=== PATIENT | female | born 1950 | race Caucasian/White ===

== ENCOUNTER 2017-10-16 00:56 | Inpatient (IN) | payer OTHER, BC ==
--- NOTE | 2017-10-16 01:13 | PDOC ---
History of Present Illness - General Chief Complaint: Pain, Acute Stated Complaint: POST OP BREAST SURGERY/PAIN, NUMBNESS TO LEFT ARM Time Seen by Provider: 10/16/17 01:07 - History of Present Illness Initial Comments: 10/16/17 01:41 This is a 67-year-old female with a past medical history of atrial fibrillation (Coumadin), Mechanical MV, coronary artery disease (S/P CABG), breast CA (left mastectomy 10/31/2014, left mastectomy revision, 11/21/2014) patient has completed 6 cycles of chemotherapy (cytoxan and taxotere) and is currently on armidex. Patient is S/P Left breast capsulectomy with removal of implant and hematoma, Dr. Engle/Dr. Cano, 10/11/2017. Patient was discharged yesterday on Lovenox (Coumadin not restarted). Today, she noted an increase in pain over the operative site and left arm numbness starting at approximately 3 PM. GLORIA drainage has been unchanged at 30 mL emptied every 3 hours and drainage appearance has been consistent. Her most recent oxycodone was taken at 10 PM; patient states that this "did nothing "to help her pain. She denies shortness of breath. Controlled Area Checker is Dr Carver([facility]) Past History - Past Medical History Allergies/Adverse Reactions: Allergies Allergy/AdvReac Type Severity Reaction Status Date / Time Penicillins Allergy Rash Verified 10/16/17 00:58 Home Medications: Ambulatory Orders Digoxin [Lanoxin -] 0.125 mg PO DAILY 10/29/14 Enoxaparin Sodium [Lovenox] 80 mg SQ BID 10/29/14 Simvastatin 40 mg PO HS 10/29/14 Anastrozole [Arimidex] 1 mg PO DAILY 10/07/17 Metoprolol Succinate 200 mg PO DAILY 10/07/17 Cefadroxil 1 gm PO DAILY #7 tablet 10/14/17 Oxycodone HCl/Acetaminophen [Percocet 5-325 mg Tablet] 1 combo PO Q4H PRN #42 tablet MDD 6 10/14/17 Anemia: No Asthma: No Cancer: Yes (Breast Left) Cardiac Disorders: Yes (Atrial Fib,MVR) CVA: No COPD: No CHF: No Dementia: No Diabetes: No GI Disorders: No Disorders: No HTN: No Hypercholesterolemia: Yes Liver Disease: No Seizures: No Thyroid Disease: No - Surgical History Abdominal Surgery: No Appendectomy: No Cardiac Surgery: Yes (Mitral Valve Replacement 09/2207) Cholecystectomy: No Lung Surgery: No Neurologic Surgery: No Orthopedic Surgery: No - Suicide/Smoking/Psychosocial Hx Smoking History: Former smoker Have you smoked in the past 12 months: No Number of Cigarettes Smoked Daily: 0 If you are a former smoker, when did you quit?: 15 y ago Hx Alcohol Use: No Drug/Substance Use Hx: No Substance Use Type: None Hx Substance Use Treatment: No Review of Systems - Review of Systems Able to Perform ROS?: Yes Comments:: 12 point review of systems is negative except for what is noted in the history of present illness *Physical Exam - Physical Exam Comments: GENERAL: Adult female, alert and oriented 3, anxious and in mild distress secondary to left-sided chest pain/left arm numbness HEAD: Normal with no signs of trauma. EYES: PERRLA, EOMI, sclera anicteric, conjunctiva clear. ENT: Ears normal, nares patent, oropharynx clear without exudates. Moist mucous membranes. NECK: Normal range of motion, supple without lymphadenopathy, JVD, or masses. LUNGS: Breath sounds equal, clear to auscultation bilaterally. No wheezes, and no crackles. CHEST WALL: Left-sided operative site : suture line intact without disruption, erythema or discharge Firm , mildly tender, nonfluctuant , ecchymotic 10 cm by 10 cm collection proximal to suture line HEART:Regular rate and rhythm, normal S1 and S2 without murmur, rub or gallop. ABDOMEN:.normal bowel sounds No guarding,tenderness or rebound.No masses No distention. EXTREMITIES: Normal range of motion, no edema. No clubbing or cyanosis. No erythema, or tenderness. NEUROLOGICAL: Cranial nerves II through XII grossly intact. Normal speech. No focal neurological deficits. MUSCULOSKELETAL: Back non-tender to palpation, no CVA tenderness SKIN: Warm, Dry, normal turgor, no rashes or lesions noted. 12-lead electrocardiogram performed and interpreted by me: Atrial fibrillation 111 beats per minute; no significant change from previous EKG dated 10/31/14 ED Treatment Course - LABORATORY CBC & Chemistry Diagram: 10/16/17 01:50 10/16/17 01:50 Medical Decision Making - Medical Decision Making 10/16/17 01:[address] Cano: Because of patient's increase in chest pain ( in light of her cardiac history) and possible change in size of postoperative hematoma, patient should be admitted to fully rule out myocardial ischemia as being etiology of her chest pain. Also, possible increase in postoperative hematoma warrants full evaluation and monitoring a CBC/INR. Patient could possibly need revision if significant reaccumulation of hematoma has occurred. Patient should be through [facility].Dr Cano will see patient in the AM 10/16/17 03:02 Portable chest x-ray shows diffuse, faint opacity of the left sided chest consistent with overlying hematoma; no effusion/infiltrate present. Right lung is clear. 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 Patient is cleared to stay at [facility]. He will see patient in the AM *DC/Admit/Observation/Transfer Diagnosis at time of Disposition: Postoperative hematoma of subcutaneous tissue Qualifiers: Procedure type: non-dermatologic Qualified Code(s): L76.32 - Postprocedural hematoma of skin and subcutaneous tissue following other procedure - Discharge Dispostion Condition at time of disposition: Stable Decision to Admit order: Yes - Referrals - Patient Instructions - Post Discharge Activity
[2017-10-16] MEDS ORDERED: morphine CARPU-JECT 2 MG/1 ML DISP.SYRIN IVPUSH ONE ×2 (02:17→03:12)
[2017-10-16] MEDS ORDERED: morphine SULFATE 4 MG/ML VIAL ONE (02:18)
[2017-10-16] MEDS ORDERED: CEFAZOLIN 1 GM in DEXTROSE 5%-WATER - 50 ML IVPB ONE (02:26)
[2017-10-16] MEDS ORDERED: ceFAZolin SODIUM 1 GM VIAL ONE ×2 (02:26→12:04)
[2017-10-16 02:29] LABS: BASO % 0.5 % (0-2.0); EOS % 0.9 % (0-4.5); HEMATOCRIT 32.1 % (32.4-45.2); HEMOGLOBIN 11.1 GM/dL (10.7-15.3); LYMPH % 5.7 % (8-40); MCH 29.9 pg (25.7-33.7); MCHC 34.6 g/dl (32.0-36.0); MEAN CELL VOLUME 86.6 fl (80-96); MEAN PLT VOLUME 9.5 fl (7.5-11.1); MONO % 7.4 % (3.8-10.2); NEUT % 85.5 % (42.8-82.8); PLATELET COUNT 197 K/MM3 (134-434); RDW 14.1 % (11.6-15.6); WHITE BLOOD COUNT 12.9 K/mm3 (4.0-10.0)
[2017-10-16] MEDS ORDERED: DEXTROSE 5%-0.45% SALINE 1,000 ML IV SCH ×2 (02:30→09:15)
[2017-10-16 02:47] LABS: INR 1.12 (0.83-1.09); PROTHROMBIN TIME (PATIENT) 12.6 SEC (9.7-13.0)
[2017-10-16 03:00] LABS: ALBUMIN 3.3 g/dl (3.4-5.0); ALK PHOS 101 U/L (45-117); ANION GAP 8 MMOL/L (8-16); BILIRUBIN,TOTAL 2.2 mg/dL (0.2-1.0); BLOOD UREA NITROGEN 23 mg/dL (7-18); CALCIUM 8.6 mg/dL (8.5-10.1); CHLORIDE 101 mmol/L (98-107); CO2 29 mmol/L (21-32); GLUCOSE,RANDOM 145 mg/dL (74-106); SGOT/AST 30 U/L (15-37); SGPT/ALT 45 U/L (12-78); SODIUM 138 mmol/L (136-145); TOT PROT 5.9 g/dl (6.4-8.2)
[2017-10-16] MEDS ORDERED: MORPHINE SULFATE 2 MG/ML VIAL IVPUSH PRN (06:39)
[2017-10-16] MEDS ORDERED: ONDANSETRON 4 MG/2 ML VIAL IVPUSH PRN ×3 (06:41→15:23)
[2017-10-16] MEDS ORDERED: HYDROmorphone HCL CARPU-JECT 2 MG/1 ML DISP.SYRIN ONE (07:56)
[2017-10-16] MEDS ORDERED: ALBUTEROL SO4 0.083% IH SOL 2.5 MG/3 ML VIAL.NEB. NEB ONE (07:57)
--- NOTE | 2017-10-16 08:19 | HP ---
CHIEF COMPLAINT: Left breast pain Surgeon: Dr. Cano HISTORY OF PRESENT ILLNESS: This is a 67 year-old female with a PMH significant for atrial fibrillation, mechanical MV, CAD s/p CABG, breast CA s/p left mastectomy and revision (2014) s /p six cycles of chemotherapy (cytoxan and taxotere), currently on armidex. Now s/p left breast capsulectomy with removal of implant and hematoma on 10/11/17. Patient was discharged 10/13/17 on full dose Lovenox. On 10/14 patient had increased pain and left arm numbness and came to the ED. At the time of this admission, the GLORIA drain is putting out ~200ccs per hour sanguinous fluid. Patient being transferred to [facility] for emergent surgery with Dr. Cano. Recent Travel: PAST MEDICAL HISTORY: As above PAST SURGICAL HISTORY: As above Social History: Smoking:no Alcohol: no Drugs: no Family History: Allergies Penicillins Allergy (Verified 10/16/17 00:58) Rash HOME MEDICATIONS: Home Medications Medication Instructions Recorded Digoxin [Lanoxin -] 0.125 mg PO DAILY 10/29/14 Enoxaparin Sodium [Lovenox] 80 mg SQ BID 10/29/14 Simvastatin 40 mg PO HS 10/29/14 Anastrozole [Arimidex] 1 mg PO DAILY 10/07/17 Metoprolol Succinate 200 mg PO DAILY 10/07/17 Cefadroxil 1 gm PO DAILY #7 tablet 10/14/17 Oxycodone HCl/Acetaminophen 1 combo PO Q4H PRN #42 tablet MDD 6 10/14/17 [Percocet 5-325 mg Tablet] REVIEW OF SYSTEMS CONSTITUTIONAL: Absent: fever, chills, diaphoresis, generalized weakness, malaise, loss of appetite, weight change HEENT: Absent: rhinorrhea, nasal congestion, throat pain, throat swelling, difficulty swallowing, mouth swelling, ear pain, eye pain, visual changes CARDIOVASCULAR: Absent: chest pain, syncope, palpitations, irregular heart rate, lightheadedness , peripheral edema RESPIRATORY: Absent: cough, shortness of breath, dyspnea with exertion, orthopnea, wheezing, stridor, hemoptysis GASTROINTESTINAL: Absent: abdominal pain, abdominal distension, nausea, vomiting, diarrhea, constipation, melena, hematochezia GENITOURINARY: Absent: dysuria, frequency, urgency, hesitancy, hematuria, flank pain, genital pain MUSCULOSKELETAL: +left breast pain Absent: myalgia, arthralgia, joint swelling, back pain, neck pain SKIN: Absent: rash, itching, pallor HEMATOLOGIC/IMMUNOLOGIC: Absent: easy bleeding, easy bruising, lymphadenopathy, frequent infections ENDOCRINE: Absent: unexplained weight gain, unexplained weight loss, heat intolerance, cold intolerance NEUROLOGIC: Absent: headache, focal weakness or paresthesias, dizziness, unsteady gait, seizure, mental status changes, bladder or bowel incontinence PSYCHIATRIC: Absent: anxiety, depression, suicidal or homicidal ideation, hallucinations. PHYSICAL EXAMINATION Vital Signs - 24 hr 10/16/17 10/16/17 10/16/17 01:02 02:01 05:05 Temperature 97.4 F L 98.4 F Pulse Rate 116 H 98 H Pulse Rate [ 72 Left] Respiratory 20 16 18 Rate Blood Pressure 129/78 127/66 Blood Pressure 148/87 [Right] O2 Sat by Pulse 98 96 Oximetry (%) 10/16/17 05:09 Temperature 98.4 F Pulse Rate 98 H Pulse Rate [ Left] Respiratory 18 Rate Blood Pressure 127/66 Blood Pressure [Right] O2 Sat by Pulse 99 Oximetry (%) GENERAL: Awake, alert, and fully oriented, in moderate distress secondary to pain. Jaundiced. Ill-appearing. HEAD: Normal with no signs of trauma. EYES: Pupils equal, round and reactive to light, extraocular movements intact, sclera anicteric, conjunctiva clear. No lid lag. LUNGS: Breath sounds equal, clear to auscultation bilaterally. No wheezes, and no crackles. No accessory muscle use. HEART: Regular rate and rhythm, S1 and S2 LEFT BREAST: 12 x 12 cm collection, tense, ecchymosis; surgical incision oozing blood; GLORIA drain with sanguinous drainage ABDOMEN: Soft, nontender, not distended UPPER EXTREMITIES: 2+ pulses, warm, well-perfused. No cyanosis. No clubbing. No peripheral edema. LOWER EXTREMITIES: 2+ pulses, warm, well-perfused. No calf tenderness. No peripheral edema. NEUROLOGICAL: Cranial nerves II-XII intact. Normal speech. Laboratory Results - last 24 hr 10/16/17 10/16/17 10/16/17 01:50 01:50 01:50 WBC 12.9 H RBC 3.70 Hgb 11.1 Hct 32.1 L MCV 86.6 MCH 29.9 MCHC 34.6 RDW 14.1 Plt Count 197 MPV 9.5 Absolute Neuts (auto) 11.1 H Neutrophils % 85.5 H Lymphocytes % 5.7 L D Monocytes % 7.4 Eosinophils % 0.9 Basophils % 0.5 Nucleated RBC % 0 PT with INR 12.60 INR 1.12 H Sodium 138 Potassium 4.0 Chloride 101 Carbon Dioxide 29 Anion Gap 8 BUN 23 H Creatinine 1.0 Creat Clearance w eGFR 55.47 Random Glucose 145 H Calcium 8.6 Total Bilirubin 2.2 H AST 30 ALT 45 Alkaline Phosphatase 101 Creatine Kinase 75 Troponin I Total Protein 5.9 L Albumin 3.3 L Triglycerides Cholesterol Total LDL Cholesterol HDL Cholesterol Blood Type Antibody Screen Crossmatch 10/16/17 10/16/17 01:50 02:30 WBC RBC Hgb Hct MCV MCH MCHC RDW Plt Count MPV Absolute Neuts (auto) Neutrophils % Lymphocytes % Monocytes % Eosinophils % Basophils % Nucleated RBC % PT with INR INR Sodium Potassium Chloride Carbon Dioxide Anion Gap BUN Creatinine Creat Clearance w eGFR Random Glucose Calcium Total Bilirubin AST ALT Alkaline Phosphatase Creatine Kinase Troponin I 0.34 H Total Protein Albumin Triglycerides 141 Cholesterol 137 Total LDL Cholesterol 80 HDL Cholesterol 41 Blood Type A POSITIVE Antibody Screen Negative Crossmatch See Detail ASSESSMENT/PLAN 67 year-old female with a PMH significant for atrial fibrillation, mechanical MV , CAD s/p CABG, breast CA s/p left mastectomy and revision (2014), s/p left breast capsulectomy with removal of implant and hematoma on 10/11/17. Admitted for active bleeding. Post-surgical bleeding --Hgb 11.1 but GLORIA drain putting out 200cc's per hour --BP is stable --bolus fluids running --type and screen done, 2U ready in ICU, will be transfused immediately on arrival --to OR Breast cancer --continue arimidex Atrial fibrillation --rate to 110s, continue metoprolol, digoxin --usually on coumadin; was discharged on 10/13 on full-dose lovenox; all anticoagulation on hold for now due to bleeding Mechanical mitral valve --coumadin is first line a/c but on hold --when bleeding issues resolved, start heparin drip CAD s/p CABG --continue metoprolol, simvastatin Visit type - Emergency Visit Emergency Visit: Yes ED Registration Date: 10/16/17 Care time: The patient presented to the Emergency Department on the above date and was hospitalized for further evaluation of their emergent condition. - New Patient This patient is new to me today: Yes Date on this admission: 10/17/17 - Critical Care Critical Care patient: Yes Total Critical Care Time (in minutes): 60 Critical Care Statement: The care of this patient involved high complexity decision making to prevent further life threatening deterioration of the patient 's condition and/or to evaluate & treat vital organ system(s) failure or risk of failure. Hospitalist Screening - Colonoscopy Questionnaire Colonoscopy Questionnaire: Colonoscopy Questionnaire - Patient: 50 - 75 years old and never had a screening colonoscopy: Unknown History of colon or rectal polyps, or CA: Yes History of IBD, Crohn's disease or UC: No History of abdominal radiation therapy as a child: No - Relative: 1 with colon or rectal CA, or polyps at age 60 or younger: Unknown Colon or rectal CA diagnosed at age 45 or younger: Unknown Multiple relatives with colon or rectal CA: Unknown - Outcome: Screening Result: Positive Screen
[2017-10-16] MEDS ORDERED: HYDROmorphone HCL CARPU-JECT 2 MG/1 ML DISP.SYRIN IVPUSH ONE (08:25)
[2017-10-16] MEDS ORDERED: PROMETHAZINE HCL 25 MG/1 ML VIAL IVPB STA (09:18)
[2017-10-16] MEDS ORDERED: DIGOXIN 0.125 MG TABLET (FP) PO SCH (10:00)
[2017-10-16] MEDS ORDERED: PNEUMOC 13-VAL CONJ-DIP CRM/PF 0.5 ML DISP.SYRIN IM ONE (10:00)
[2017-10-16] MEDS ORDERED: ANASTROZOLE 1 MG TABLET PO SCH (10:00)
[2017-10-16 10:41] LABS: HEMATOCRIT 27.1 % (32.4-45.2); HEMOGLOBIN 9.3 GM/dL (10.7-15.3); MCH 29.9 pg (25.7-33.7); MCHC 34.2 g/dl (32.0-36.0); MEAN CELL VOLUME 87.4 fl (80-96); MEAN PLT VOLUME 9.3 fl (7.5-11.1); PLATELET COUNT 232 K/MM3 (134-434); RDW 14.3 % (11.6-15.6); WHITE BLOOD COUNT 14.3 K/mm3 (4.0-10.0)
--- NOTE | 2017-10-16 10:50 | PN ---
Progress Note (short form) - Note Progress Note: Patient seen at 630 this morning. HD stable with shira output 30/hr. Her last dose of lovenox was within 12 hours. Exam is hematoma to the surgical site with skin viable and incisions intact. No evidence of infection. HCT 32 Plan is for immediate transfusion of 2u PRBC and hold lovenox. This was ordered at 650. Plan for OR later this morning after lovenox has worn off completely. We will transfer to ICU with cardiology consult for post op management regarding the length of stopping anticoagulation. I have discussed this with the patient who understands and agrees to proceed.
--- NOTE | 2017-10-16 10:50 | CONSULT ---
Consultation: REQUESTING PROVIDER: CONSULT REQUEST: We have been asked to medically evaluate this patient. HISTORY OF PRESENT ILLNESS: Pt. has been having worsening left breast pain (7/10 intensity), dizziness and progressive generalized weakness since (10/13/17). Pt. was last treated for left breast mastectomy in 2014. Pt. had revision done later that year after the first hematoma was discovered. Pt. was BIBA from [place] for emergent surgery. Pt. has PMHx. of atrial fibrillation (Coumadin), Mechanical MV, CAD (s/ p CABG), breast CA (left mastectomy 10/31/2014, left mastectomy revision, 2014) patient has completed 6 cycles of chemotherapy (cytoxan and taxotere) and is currently on armidex. Pt. has GLORIA drain that is draining sanginous fluid at 30 ml/hour consistently since 10/11/17. Pt. says that her pain medication oxicodone is not effective at controlling left breast pain. Pt. endorses dizziness since . Pt. denies numbness or tingling in the extremities, denies any changes in passing urine or stool. Pt. denies nausea or vomiting. REVIEW OF SYSTEMS: CONSTITUTIONAL: generalized weakness Absent: fever, chills, diaphoresis, malaise, loss of appetite, weight change HEENT: Absent: rhinorrhea, nasal congestion, throat pain, throat swelling, difficulty swallowing, mouth swelling, ear pain, eye pain, visual changes CARDIOVASCULAR: chest pain Absent: , syncope, palpitations, irregular heart rate, lightheadedness, peripheral edema RESPIRATORY: Absent: cough, shortness of breath, dyspnea with exertion, orthopnea, wheezing, stridor, hemoptysis GASTROINTESTINAL: Absent: abdominal pain, abdominal distension, nausea, vomiting, diarrhea, constipation, melena, hematochezia GENITOURINARY: Absent: dysuria, frequency, urgency, hesitancy, hematuria, flank pain, genital pain MUSCULOSKELETAL: Absent: myalgia, arthralgia, joint swelling, back pain, neck pain SKIN: Absent: rash, itching, pallor HEMATOLOGIC/IMMUNOLOGIC: easy bleeding, easy bruising, Absent: lymphadenopathy, frequent infections ENDOCRINE: Absent: unexplained weight gain, unexplained weight loss, heat intolerance, cold intolerance NEUROLOGIC: dizziness Absent: headache, focal weakness or paresthesias, unsteady gait, seizure, mental status changes, bladder or bowel incontinence PSYCHIATRIC: Absent: anxiety, depression, suicidal or homicidal ideation, hallucinations. PHYSICAL EXAMINATION Vital Signs - 24 hr 10/16/17 10/16/17 10/16/17 01:02 02:01 05:05 Temperature 97.4 F L 98.4 F Pulse Rate 116 H 98 H Pulse Rate [ 72 Left] Respiratory 20 16 18 Rate Blood Pressure 129/78 127/66 Blood Pressure 148/87 [Right] O2 Sat by Pulse 98 96 Oximetry (%) 10/16/17 10/16/17 10/16/17 05:09 08:25 09:10 Temperature 98.4 F Pulse Rate 98 H 124 H 132 H Pulse Rate [ Left] Respiratory 18 16 16 Rate Blood Pressure 127/66 148/81 138/80 Blood Pressure [Right] O2 Sat by Pulse 99 Oximetry (%) 10/16/17 10/16/17 09:30 09:40 Temperature Pulse Rate 128 H 140 H Pulse Rate [ Left] Respiratory 16 16 Rate Blood Pressure 141/78 138/84 Blood Pressure [Right] O2 Sat by Pulse Oximetry (%) GENERAL: Awake, alert, and fully oriented, in mild distress. HEAD: Normal with no signs of trauma. EYES: Pupils equal, round and reactive to light, extraocular movements intact, pale sclera, conjunctiva clear. EARS, NOSE, THROAT: Ears normal, nares patent, oropharynx clear without exudates. Dry mucous membranes. LUNGS: Breath sounds equal, clear to auscultation bilaterally. No wheezes, and no crackles. No accessory muscle use. HEART: Regular rate and rhythm, normal S1 and S2 with murmur ABDOMEN: Soft, nontender, not distended, normoactive bowel sounds, no guarding UPPER EXTREMITIES: 1+ pulses, warm, well-perfused. No cyanosis. No clubbing. No peripheral edema. LOWER EXTREMITIES: warm, well-perfused. No calf tenderness. No peripheral edema. SKIN: Warm, dry, normal turgor Laboratory Results - last 24 hr 10/16/17 10/16/17 10/16/17 01:50 01:50 01:50 WBC 12.9 H RBC 3.70 Hgb 11.1 Hct 32.1 L MCV 86.6 MCH 29.9 MCHC 34.6 RDW 14.1 Plt Count 197 MPV 9.5 Absolute Neuts (auto) 11.1 H Neutrophils % 85.5 H Lymphocytes % 5.7 L D Monocytes % 7.4 Eosinophils % 0.9 Basophils % 0.5 Nucleated RBC % 0 PT with INR 12.60 INR 1.12 H Sodium 138 Potassium 4.0 Chloride 101 Carbon Dioxide 29 Anion Gap 8 BUN 23 H Creatinine 1.0 Creat Clearance w eGFR 55.47 Random Glucose 145 H Calcium 8.6 Total Bilirubin 2.2 H AST 30 ALT 45 Alkaline Phosphatase 101 Creatine Kinase 75 Troponin I Total Protein 5.9 L Albumin 3.3 L Triglycerides Cholesterol Total LDL Cholesterol HDL Cholesterol Blood Type Antibody Screen Crossmatch 10/16/17 10/16/17 10/16/17 01:50 02:30 09:30 WBC RBC Hgb Hct MCV MCH MCHC RDW Plt Count MPV Absolute Neuts (auto) Neutrophils % Lymphocytes % Monocytes % Eosinophils % Basophils % Nucleated RBC % PT with INR INR Sodium Potassium Chloride Carbon Dioxide Anion Gap BUN Creatinine Creat Clearance w eGFR Random Glucose Calcium Total Bilirubin AST ALT Alkaline Phosphatase Creatine Kinase Troponin I 0.34 H 0.40 H Total Protein Albumin Triglycerides 141 Cholesterol 137 Total LDL Cholesterol 80 HDL Cholesterol 41 Blood Type A POSITIVE Antibody Screen Negative Crossmatch See Detail Active Medications Current Medications Anastrozole (Arimidex -) 1 mg PO DAILY COUNTS INCLUDE 234 BEDS AT THE [facility] Atorvastatin Calcium (Lipitor -) 20 mg PO HS COUNTS INCLUDE 234 BEDS AT THE [facility] Digoxin (Lanoxin -) 0.125 mg PO DAILY COUNTS INCLUDE 234 BEDS AT THE [facility] Dextrose/Sodium Chloride (D5-1/2ns -) 1,000 mls @ 100 mls/hr IV ASDIR LAMAR Last Admin: 10/16/17 09:15 Dose: 100 mls/hr Metoprolol Succinate (Toprol Xl -) 200 mg PO DAILY COUNTS INCLUDE 234 BEDS AT THE [facility] Morphine Sulfate (Morphine Sulfate) 2 mg IVPUSH Q6H PRN PRN Reason: PAIN LEVEL 7 - 10 Last Admin: 10/16/17 07:25 Dose: 2 mg Ondansetron HCl (Zofran Injection) 4 mg IVPUSH Q6H PRN PRN Reason: NAUSEA AND/OR VOMITING Last Admin: 10/16/17 07:25 Dose: 4 mg ASSESSMENT/PLAN: #Cardiovascular -Hypovolemia transfuse 2 units pRBCs, prepare to transfuse more post-op started D5-1/2NS @100ml/hr Pt. is going to the OR for evacuation of hematoma, will f/u with post op CBC Cardiology consulted for management of Pt. off AC d/t bleeding as Pt. is at increased risk for stroke d/t mechanical mitral valve -Afib c/w Metoprolol hold Lovenox until after procedure and cardiology consulted for when to restart echocardiogram -HLD c/w Lipitor -CHF c/w Digoxin monitor BMP #Gastroenterology -Nausea and vomiting c/w Ondanseetron as needed #Oncology -Left Breast CA c/w Armidex #F/E/N D5-1/2 NS @ 100ml/ hr establish 2 Large IV access sites #DVT PPx. -given Lovenox in the AM, will hold AC for at least 48 hours post-op. -consider starting Heparin drip on post-op as it is reversible. Dispo: -ICU monitoring We will continue to follow the patient. Thank you for this consultative opportunity. Visit type - Emergency Visit Emergency Visit: Yes ED Registration Date: 10/16/17 Care time: The patient presented to the Emergency Department on the above date and was hospitalized for further evaluation of their emergent condition. - New Patient This patient is new to me today: Yes Date on this admission: 10/16/17 - Critical Care Critical Care patient: No
--- NOTE | 2017-10-16 11:07 | PN ---
Teaching Attending Note Name of Resident: Garett Woods ATTENDING PHYSICIAN STATEMENT I saw and evaluated the patient. I reviewed the resident's note and discussed the case with the resident. I agree with the resident's findings and plan as documented. SUBJECTIVE: Pt seen and examined in the ICU. Briefly, 67yo female with h/o CAD s/p CABG, h/ o left breast ca s/p mastectomy, mechanical MVR, atrial fibrillation on anticoagulation who just had a left breast capsulectomy, removal of breast prosthesis who presented with increased bloody drainage from her drain. Noted to have >400mL bloody drainage since presentation in ER. Pt diaphoretic, short of breath. OBJECTIVE: Vital Signs Period Temp Pulse Resp BP Sys/Bergeron Pulse Ox Last 24 Hr 97.4 F-98.4 F 72-140 16-20 127-148/66-87 96-99 Intake & Output 10/13/17 10/14/17 10/15/17 10/16/17 23:59 23:59 23:59 23:59 Intake Total 84 Output Total 470 Balance -386 Weight 78.471 kg Gen: anxious, mildly tachypneic Heart: tachycardic, irregular Lung: decreased breath sounds at the bases Abd: soft, nontender Ext: no edema Drain with blood CBC, BMP 10/16/17 10:35 10/16/17 01:50 Active Medications Anastrozole (Arimidex -) 1 mg PO DAILY [facility] Atorvastatin Calcium (Lipitor -) 20 mg PO HS [facility] Digoxin (Lanoxin -) 0.125 mg PO DAILY [facility] Dextrose/Sodium Chloride (D5-1/2ns -) 1,000 mls @ 100 mls/hr IV ASDIR LAMAR Last Admin: 10/16/17 09:15 Dose: 100 mls/hr Metoprolol Succinate (Toprol Xl -) 200 mg PO DAILY [facility] Morphine Sulfate (Morphine Sulfate) 2 mg IVPUSH Q6H PRN PRN Reason: PAIN LEVEL 7 - 10 Last Admin: 10/16/17 07:25 Dose: 2 mg Ondansetron HCl (Zofran Injection) 4 mg IVPUSH Q6H PRN PRN Reason: NAUSEA AND/OR VOMITING Last Admin: 10/16/17 07:25 Dose: 4 mg ASSESSMENT AND PLAN: L Breast Ca s/p recent capsulectomy/implant removal Acute Blood Loss Anemia CAD s/p CABG +Troponins likely Demand Ischemia h/o mechanical MVR Atrial Fibrillation with RVR - transfuse PRBC - monitor H/H - pt to OR for exploration - rate control - echocardiogram - pain control - holding anticoagulation for active bleeding - IVF resuscitation - ensure large bore peripheral access - ICU monitoring critical care time spent in reviewing chart, evaluating patient and formulating plan 35 min
[2017-10-16] MEDS ORDERED: SUCCINYLCHOLINE CHLORIDE 200 MG/10 ML VIAL ONE (11:49)
[2017-10-16] MEDS ORDERED: PROPOFOL 20 ML ONE (11:49)
[2017-10-16] MEDS ORDERED: fentaNYL CITRATE 250 MCG/5 ML VIAL ONE ×2 (11:49→13:44)
[2017-10-16] MEDS ORDERED: CLINDAMYCIN 600 MG PREMIX BAG IVPB ONE (12:03)
[2017-10-16] MEDS ORDERED: ROCURONIUM BROMIDE 50 MG/5 ML VIAL ONE (12:04)
[2017-10-16 12:25] LABS: CHOLESTEROL 114 mg/dL (50-200); HDL CHOLESTEROL 37 mg/dL (40-60); LDL CHOLESTEROL (ONLY DFH) 44 mg/dl; TRIGLYCERIDES 167 mg/dL (35-160)
[2017-10-16] MEDS ORDERED: NEOSTIGMINE METHYLSULFATE 0.5 MG/ML - 10 ML MDV ONE (14:13)
[2017-10-16] MEDS ORDERED: GLYCOPYRROLATE 0.2 MG/1 ML VIAL ONE ×2 (14:13)
[2017-10-16] MEDS ORDERED: LABETALOL HCL 5 MG/1 ML (100MG/20 ML VIAL) ONE (14:22)
[2017-10-16] MEDS ORDERED: PROMETHAZINE HCL 25 MG/1 ML VIAL IVPUSH PRN ×2 (14:47→15:23)
[2017-10-16] MEDS ORDERED: oxyCODONE HCL 5 MG TABLET PO PRN ×2 (14:47→15:23)
[2017-10-16] MEDS ORDERED: LACTATED RINGERS SOLUTION 1,000 ML IV SCH ×2 (15:00→15:23)
--- NOTE | 2017-10-16 15:03 | OP ---
Operative Note - Note: Operative Date: 10/16/17 Pre-Operative Diagnosis: hematoma on left chest wound Operation: evacuation of hematoma and hemostasis of left breast wound Findings: bleeding from raw muscle surfaces. over-sewen ad cauterized Surgeon: Carlos A Cano Anesthesia: General Estimated Blood Loss (mls): 400 Operative Report Dictated: Yes
--- NOTE | 2017-10-16 15:05 | PN ---
Progress Note (short form) - Note Progress Note: good hemostasis acheived intra-operatively. Transfused additional unit PRBC in OR. Lu catheter placed for UOP monitoring. Plan is to hold anticoagulation until morning at least. Cardiology consult pending for valve management. Obs in ICU.
[2017-10-16 16:14] LABS: HEMATOCRIT 33.4 % (32.4-45.2); HEMOGLOBIN 11.5 GM/dL (10.7-15.3); MCH 29.9 pg (25.7-33.7); MCHC 34.5 g/dl (32.0-36.0); MEAN CELL VOLUME 86.6 fl (80-96); MEAN PLT VOLUME 9.1 fl (7.5-11.1); PLATELET COUNT 150 K/MM3 (134-434); RBC 3.86 M/mm3 (3.60-5.2); RDW 14.7 % (11.6-15.6); WHITE BLOOD COUNT 14.1 K/mm3 (4.0-10.0)
--- NOTE | 2017-10-16 16:19 | OP ---
DATE OF OPERATION: 10/16/2017 PROCEDURE: Left breast re-exploration of bleeding wound with cauterization of bleeding chest blood vessels, suture ligation of bleeding areas, and washout and closure. ATTENDING SURGEON: Carlos A Cano MD SOUND CONTROLLER: No assistants. ANESTHESIA: General endotracheal anesthesia. Patient is counseled on all risks, benefits, alternatives to the procedure, understands, agreed to proceed. She is adequately resuscitated prior to the surgery. It is the decision and recommendation of the surgical and ICU staff to operate and bring the patient to the OR for hemostasis. Patient is brought to the operating room, placed in supine position, prepped and draped in standard surgical fashion. A Lu catheter was placed. Timeout was called. Patient procedure, side, and sites were verified. The existing incision is reopened. A hematoma is evacuated and the wound is copiously irrigated with normal saline. It is packed with lap sponges, which are then removed sequentially for quadrant by quadrant inspection of the wound and hemostasis. A combination of Bovie cautery and suture ligation is performed. There is no singular point that is necessarily responsible for the bleeding; however, free muscle edges are oversewn with running locking 0 Prolene sutures. Multiple suture ligations are performed with a series of interrupted [id number] 0 Vicryl suture. The wound is copiously irrigated once again. Please note the patient had received 900 mg of clindamycin preoperatively. Meticulous hemostasis is assured. Two separate size 19 round Layo drains are brought out through either apex of the incision and secured with 2-0 silk drain sutures. The mastectomy flaps are then quilt sutured to the pectoralis major muscle and the chest wall with a running 0 PDS suture, obliterating any and all space, for which a hematoma may develop. The soft tissue is then likewise closed with a running locking 3-0 Vicryl suture for hemostasis purposes, closing any and all space in the soft tissue. The dermis is closed with a running locking 4-0 Vicryl suture and skin ebenezer are then placed. Tissues appear viable at the end of procedure. Drains are placed to bulb suction. A compressive binder is applied with ABD gauze. Patient awoke from anesthesia, having tolerated the procedure well. It should be noted that patient received 1 unit of packed red blood cells during the operation. Urine output was good at 350 mL. Isabella [id number]
[2017-10-16] MEDS ORDERED: METOPROLOL TARTRATE 5 MG/5 ML VIAL IVPUSH ONE ×2 (16:35→23:11)
[2017-10-16] MEDS: DEXTROSE 5%-0.45% SALINE 1,000 ML IV SCH (16:53)
[2017-10-16] MEDS: MORPHINE SULFATE 2 MG/ML VIAL IVPUSH PRN (19:14)
[2017-10-16] MEDS: ONDANSETRON 4 MG/2 ML VIAL IVPUSH PRN (19:14)
[2017-10-16] MEDS: MUPIROCIN 2% TOPICAL OINTMENT FOR DECOLONIZATION NS SCH (21:25)
[2017-10-16] MEDS ORDERED: ATORVASTATIN CA 20 MG TABLET (FP) PO SCH (22:00)
[2017-10-16] MEDS: ATORVASTATIN CA 20 MG TABLET (FP) PO SCH (22:14)
[2017-10-16] MEDS ORDERED: MORPHINE SULFATE 2 MG/ML VIAL IVPUSH ONE (22:15)
[2017-10-16] MEDS: CHLORHEXIDINE GLUCONATE 4% CLEANSER FOR DECOLONIZATION TP SCH (22:15)
[2017-10-16] MEDS ORDERED: METOPROLOL TARTRATE 5 MG/5 ML VIAL ONE (23:18)
[2017-10-17] MEDS ORDERED: METOPROLOL TARTRATE 5 MG/5 ML VIAL IVPUSH ONE (01:09)
[2017-10-17] MEDS: DEXTROSE 5%-0.45% SALINE 1,000 ML IV SCH (01:28)
[2017-10-17] MEDS: MORPHINE SULFATE 2 MG/ML VIAL IVPUSH PRN (03:30)
[2017-10-17] MEDS: ONDANSETRON 4 MG/2 ML VIAL IVPUSH PRN ×2 (03:38→09:37)
[2017-10-17] MEDS ORDERED: PT OWN MED DRAWER 7, Y5N ONE ×2 (05:51→09:00)
[2017-10-17 06:20] LABS: HEMATOCRIT 30.1 % (32.4-45.2); HEMOGLOBIN 10.4 GM/dL (10.7-15.3); MCH 29.5 pg (25.7-33.7); MCHC 34.6 g/dl (32.0-36.0); MEAN CELL VOLUME 85.2 fl (80-96); MEAN PLT VOLUME 9.5 fl (7.5-11.1); PLATELET COUNT 160 K/MM3 (134-434); RBC 3.53 M/mm3 (3.60-5.2); RDW 14.9 % (11.6-15.6); WHITE BLOOD COUNT 14.7 K/mm3 (4.0-10.0)
[2017-10-17 06:44] LABS: CHLORIDE 106 mmol/L (98-107); POTASSIUM 4.1 mmol/L (3.5-5.1); SODIUM 139 mmol/L (136-145)
[2017-10-17 06:49] LABS: ANION GAP 7 MMOL/L (8-16); BLOOD UREA NITROGEN 15 mg/dL (7-18); CALCIUM 7.8 mg/dL (8.5-10.1); CO2 26 mmol/L (21-32); CREATININE 0.8 mg/dL (0.55-1.02); GLUCOSE,RANDOM 149 mg/dL (74-106)
[2017-10-17] MEDS ORDERED: CALCIUM (OYSTER SHELL) 500 MG TABLET (FP) PO ONE (07:53)
[2017-10-17] MEDS ORDERED: NAPH,MB-DB/K PH,MBDB POWDER PACKET PO ONE (07:54)
--- NOTE | 2017-10-17 07:58 | PN ---
Physical Exam: SUBJECTIVE: Patient seen and examined at bedside in ICU. Has pain, morphine works better than PO pain meds. Difficulty lifting left arm. OBJECTIVE: Vital Signs Period Temp Pulse Resp BP Sys/Bergeron Pulse Ox Last 24 Hr 98.5 F-99.6 F 110-140 16-22 113-158/56-105 99-100 General: Awake, alert, in mild distress secondary to pain. CV & Pulm: large chest binder prevents auscultation; 2 GLORIA drains with ~20cc's dark sanguinous fluid Abd: soft, not tender, not distended : gilbert draining orange-colored urine Upper Ext: 2+ pulses, warm, well-perfused, no edema Lower Ext: 2+ pulses, warm, well-perfused, no edema, SCDs Laboratory Results - last 24 hr 10/16/17 10/16/17 10/16/17 01:50 01:50 01:50 WBC RBC Hgb Hct MCV MCH MCHC RDW Plt Count MPV Sodium 138 Potassium 4.0 Chloride 101 Carbon Dioxide 29 Anion Gap 8 BUN 23 H Creatinine 1.0 Creat Clearance w eGFR 55.47 Random Glucose 145 H Calcium 8.6 Phosphorus Magnesium Total Bilirubin 2.2 H AST 30 ALT 45 Alkaline Phosphatase 101 Creatine Kinase 75 Troponin I 0.33 H Total Protein 5.9 L Albumin 3.3 L Triglycerides Cholesterol Total LDL Cholesterol HDL Cholesterol Blood Type A POSITIVE Antibody Screen Negative Crossmatch See Detail 10/16/17 10/16/17 10/16/17 09:30 10:35 10:35 WBC RBC Hgb Hct MCV MCH MCHC RDW Plt Count MPV Sodium Potassium Chloride Carbon Dioxide Anion Gap BUN Creatinine Creat Clearance w eGFR Random Glucose Calcium Phosphorus Magnesium Total Bilirubin AST ALT Alkaline Phosphatase Creatine Kinase Troponin I 0.40 H 0.54 H Total Protein Albumin Triglycerides 167 H Cholesterol 114 Total LDL Cholesterol 44 HDL Cholesterol 37 L Blood Type Antibody Screen Crossmatch 10/16/17 10/16/17 10/16/17 10:35 15:30 15:30 WBC 14.3 H 14.1 H RBC 3.10 L 3.86 Hgb 9.3 L 11.5 Hct 27.1 L D 33.4 D MCV 87.4 86.6 MCH 29.9 29.9 MCHC 34.2 34.5 RDW 14.3 14.7 Plt Count 232 150 D MPV 9.3 9.1 Sodium Potassium Chloride Carbon Dioxide Anion Gap BUN Creatinine Creat Clearance w eGFR Random Glucose Calcium Phosphorus Magnesium Total Bilirubin AST ALT Alkaline Phosphatase Creatine Kinase Troponin I 0.48 H Total Protein Albumin Triglycerides Cholesterol Total LDL Cholesterol HDL Cholesterol Blood Type Antibody Screen Crossmatch 10/17/17 10/17/17 05:30 05:30 WBC 14.7 H RBC 3.53 L Hgb 10.4 L Hct 30.1 L MCV 85.2 MCH 29.5 MCHC 34.6 RDW 14.9 Plt Count 160 MPV 9.5 Sodium 139 Potassium 4.1 Chloride 106 Carbon Dioxide 26 Anion Gap 7 L BUN 15 Creatinine 0.8 Creat Clearance w eGFR > 60 Random Glucose 149 H Calcium 7.8 L Phosphorus 2.0 L Magnesium 2.0 Total Bilirubin AST ALT Alkaline Phosphatase Creatine Kinase Troponin I Total Protein Albumin Triglycerides Cholesterol Total LDL Cholesterol HDL Cholesterol Blood Type Antibody Screen Crossmatch Active Medications Generic Name Dose Route Start Last Admin Trade Name Freq PRN Reason Stop Dose Admin Anastrozole 1 mg 10/17/17 10:00 Arimidex - PO DAILY [facility] Atorvastatin Calcium 20 mg 10/16/17 22:00 10/16/17 22:14 Lipitor - PO 20 mg HS [facility] Administration Chlorhexidine Gluconate 1 applic 10/16/17 22:00 10/16/17 22:15 Hibiclens For Decolonization - TP 1 applic HS [facility] Administration Digoxin 0.125 mg 10/17/17 10:00 Lanoxin - PO DAILY [facility] Fentanyl 50 mcg 10/16/17 15:23 Sublimaze Injection - IVPUSH [id number] PRN PAIN-PACU ORDER X 4 DOSES ONLY Dextrose/Sodium Chloride 1,000 mls @ 100 mls/hr 10/16/17 15:23 10/17/17 01:28 D5-1/2ns - IV 100 mls/hr ASDIR [facility] Administration Lactated Ringer's 1,000 mls @ 75 mls/hr 10/16/17 15:23 10/16/17 16:53 Lactated Ringers Solution IV Not Given ASDIR [facility] Metoprolol Succinate 200 mg 10/17/17 10:00 Toprol Xl - PO DAILY [facility] Morphine Sulfate 2 mg 10/16/17 15:23 10/17/17 03:30 Morphine Sulfate IVPUSH 2 mg Q6H PRN Administration PAIN LEVEL 7 - 10 Mupirocin 1 applic 10/16/17 22:00 10/16/17 21:25 Bactroban Ointment (For Decolonization) - NS 10/21/17 21:59 1 applic BID [facility] Administration Ondansetron HCl 4 mg 10/16/17 15:23 10/17/17 03:38 Zofran Injection IVPUSH 4 mg Q6H PRN Administration NAUSEA AND/OR VOMITING Ondansetron HCl 4 mg 10/16/17 15:23 Zofran Injection IVPUSH Q6H PRN NAUSEA AND/OR VOMITING Oxycodone HCl 10 mg 10/16/17 15:23 Roxicodone - PO 10/17/17 14:46 Q4H PRN PAIN LEVEL 6-10 Promethazine HCl 12.5 mg 10/16/17 15:23 Phenergan Injection - IVPUSH Q6H PRN NAUSEA-FOR RESCUE AFTER 15 MIN ASSESSMENT/PLAN 67 year-old female with a PMH significant for atrial fibrillation, mechanical MV , CAD s/p CABG, breast CA s/p left mastectomy and revision (2014), s/p left breast capsulectomy with removal of implant and hematoma (10/11/17). Admitted for hematoma of left chest wound. Hematoma left chest wound s/p evacuation of hematoma and hemostasis of left breast wound --POD #1 --large chest binder in place not to be removed, surgical dressings not visualized --2 GLORIA drains, monitor output --transfused 3U PRBC perioperatively, Hgb 10.4 --BP is stable, tachycardic Breast cancer --continue arimidex Atrial fibrillation Mechanical mitral valve --rate to 120s, continue metoprolol, digoxin (dig level pending) --heparin drip started this morning Hyperbilirubinemia Jaundice --patient was jaundiced on admission, resolving today --total bili 2.2 --fractionation pending Elevated troponins --likely demand ischemia, trending down FEN Fluids: D51/2@100mL/hr Electrolytes: replete as indicated Nutrition: regular DVT prophylaxis: on heparin drip; SCDs Physical therapy Dispo: continues to require ICU level care. Full code. Visit type - Emergency Visit Emergency Visit: Yes ED Registration Date: 10/16/17 Care time: The patient presented to the Emergency Department on the above date and was hospitalized for further evaluation of their emergent condition. - New Patient This patient is new to me today: No - Critical Care Critical Care patient: Yes Total Critical Care Time (in minutes): 35 Critical Care Statement: The care of this patient involved high complexity decision making to prevent further life threatening deterioration of the patient 's condition and/or to evaluate & treat vital organ system(s) failure or risk of failure.
--- NOTE | 2017-10-17 08:20 | PN ---
Progress Note (short form) - Note Progress Note: POD 1 s/p reoperation for hematoma on breast. Patient comfortable, c/o "heaviness" to the left arm with no focal deficits. Pain is well controlled. The arm symptoms resolve when the binder is released. Dressings changed. mildly tachycardic, afebrile UOP 350 overnight All tissues viable with no collections GLORIA's both working. OUtput is 26 in the left GLORIA and scant in the right. The quality is serosanguinous, not darlene blood. Both GLORIA's are working well. last HCT 30 Discussed care with ICU team and cardiology: plan is to start heparin drip this morning without a bolus. Ultrasound to the left arm r/o DVT. Elevate left arm. Continue compression dressing. ICU team to consider restarting her full regular metoprolol dose to treat the tachycardia. OK to feed, OOB-chair. ICU and nursing staff instructed to call me if there is increase in GLORIA output or change in her exam.
[2017-10-17] MEDS: DIGOXIN 0.125 MG TABLET (FP) PO SCH (09:01)
[2017-10-17] MEDS: ANASTROZOLE 1 MG TABLET PO SCH (09:01)
[2017-10-17] MEDS: MUPIROCIN 2% TOPICAL OINTMENT FOR DECOLONIZATION NS SCH ×2 (09:08→21:20)
[2017-10-17] MEDS ORDERED: HEPARIN NA (PORCINE) 5,000 UNITS/ML 1ML VIAL IVPUSH PRN ×4 (09:26→14:33)
[2017-10-17] MEDS ORDERED: HEPARIN SOD,PORK IN 0.45% NACL 25,000 UNITS/500 ML INFUS.BAG IVPB SCH (09:30)
[2017-10-17 09:57] LABS: INR 1.12 (0.83-1.09); PROTHROMBIN TIME (PATIENT) 12.6 SEC (9.7-13.0)
[2017-10-17 10:03] LABS: ALBUMIN 2.4 g/dl (3.4-5.0); BILIRUBIN,TOTAL 4.8 mg/dL (0.2-1.0); SGOT/AST 26 U/L (15-37); SGPT/ALT 25 U/L (12-78); TOT PROT 4.4 g/dl (6.4-8.2)
[2017-10-17] MEDS ORDERED: METOPROLOL TARTRATE 5 MG/5 ML VIAL IVPUSH PRN (10:05)
[2017-10-17 10:15] LABS: ALK PHOS 65 U/L (45-117)
--- NOTE | 2017-10-17 11:28 | PN ---
Teaching Attending Note Name of Resident: Taylor Lynch ATTENDING PHYSICIAN STATEMENT I saw and evaluated the patient. I reviewed the resident's note and discussed the case with the resident. I agree with the resident's findings and plan as documented. SUBJECTIVE: Pt seen and examined in the ICU. Denies shortness of breath or chest pain. Bloody drainage from drains. Heart rates rapid. OBJECTIVE: Vital Signs Period Temp Pulse Resp BP Sys/Bergeron Pulse Ox Last 24 Hr 98.5 F-99.6 F 110-140 16-22 113-158/56-105 100-100 Intake & Output 10/14/17 10/15/17 10/16/17 10/17/17 23:59 23:59 23:59 23:59 Intake Total 3084 1200 Output Total 1340 326 Balance 1744 874 Weight 78.471 kg 85 kg Gen: anxious but in NAD Heart: irregular, tachycardic Lung: decreased breath sounds at the bases Abd: soft, nontender Ext: no edema CBC, BMP 10/17/17 05:30 10/17/17 05:30 Active Medications Anastrozole (Arimidex -) 1 mg PO DAILY [facility] Last Admin: 10/17/17 09:01 Dose: 1 mg Atorvastatin Calcium (Lipitor -) 20 mg PO HS [facility] Last Admin: 10/16/17 22:14 Dose: 20 mg Chlorhexidine Gluconate (Hibiclens For Decolonization -) 1 applic TP HS [facility] Last Admin: 10/16/17 22:15 Dose: 1 applic Digoxin (Lanoxin -) 0.125 mg PO DAILY [facility] Last Admin: 10/17/17 09:01 Dose: 0.125 mg Fentanyl (Sublimaze Injection -) 50 mcg IVPUSH [id number] PRN PRN Reason: PAIN-PACU ORDER X 4 DOSES ONLY Heparin Sodium (Porcine) (Heparin -) 1,275 unit IVPUSH PRN PRN PRN Reason: Heparin Heparin Sodium (Porcine) (Heparin -) 5,000 unit IVPUSH PRN PRN PRN Reason: HEPARIN PROTOCOL Heparin Sodium (Porcine) (Heparin -) 1,000 unit IVPUSH PRN PRN PRN Reason: PROTOCOL Lactated Ringer's (Lactated Ringers Solution) 1,000 mls @ 75 mls/hr IV ASDIR [facility] Last Admin: 10/16/17 16:53 Dose: Not Given HEPARIN SOD,PORK IN 0.45% NACL (Heparin-1/2ns 25,000 Units/500) 25,000 units in 500 mls @ 25.5 mls/hr IVPB TITR [facility]; Protocol HEPARIN SOD,PORK IN 0.45% NACL (Heparin-1/2ns 25,000 Units/500) 25,000 units in 500 mls @ 20 mls/hr IVPB TITR [facility]; Protocol Last Admin: 10/17/17 11:25 Dose: 1,000 units/hr, 20 mls/hr Metoprolol Succinate (Toprol Xl -) 200 mg PO DAILY [facility] Last Admin: 10/17/17 09:01 Dose: 200 mg Metoprolol Tartrate (Lopressor Injection -) 5 mg IVPUSH Q4H PRN PRN Reason: HYPERTENSION Morphine Sulfate (Morphine Sulfate) 2 mg IVPUSH Q6H PRN PRN Reason: PAIN LEVEL 7 - 10 Last Admin: 10/17/17 03:30 Dose: 2 mg Mupirocin (Bactroban Ointment (For Decolonization) -) 1 applic NS BID [facility] Stop: 10/21/17 21:59 Last Admin: 10/17/17 09:08 Dose: 1 applic Ondansetron HCl (Zofran Injection) 4 mg IVPUSH Q6H PRN PRN Reason: NAUSEA AND/OR VOMITING Last Admin: 10/17/17 09:37 Dose: 4 mg Ondansetron HCl (Zofran Injection) 4 mg IVPUSH Q6H PRN PRN Reason: NAUSEA AND/OR VOMITING Oxycodone HCl (Roxicodone -) 10 mg PO Q4H PRN PRN Reason: PAIN LEVEL 6-10 Stop: 10/17/17 14:46 Last Admin: 10/17/17 09:37 Dose: 10 mg Promethazine HCl (Phenergan Injection -) 12.5 mg IVPUSH Q6H PRN PRN Reason: NAUSEA-FOR RESCUE AFTER 15 MIN ASSESSMENT AND PLAN: L Breast Ca s/p recent capsulectomy/implant removal Acute Blood Loss Anemia CAD s/p CABG +Troponins likely Demand Ischemia h/o mechanical MVR Atrial Fibrillation with RVR - resume anticoagulation - monitor H/H - transfuse as needed - rate control - echocardiogram if possible - pain control - ensure large bore peripheral access - ICU monitoring critical care time spent in reviewing chart, evaluating patient and formulating plan 35 min
--- NOTE | 2017-10-17 13:29 | PN ---
Progress Note, Physician Chief Complaint: Pt A&Ox3; OOB in chair; "I feel better now: I can breather easiere". 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 Patient is S/P Left breast capsulectomy with removal of implant and hematoma, Dr. Engle/Dr. Cano, 10/11/2017. Patient was discharged yesterday on Lovenox (Coumadin not restarted). Today, she noted an increase in pain over the operative site and left arm numbness starting at approximately 3 PM. GLORIA drainage has been unchanged at 30 mL emptied every 3 hours and drainage appearance has been consistent. Her most recent oxycodone was taken at 10 PM; patient states that this "did nothing "to help her pain. She denies shortness of breath. - Current Medication List Current Medications: Active Medications Anastrozole (Arimidex -) 1 mg PO DAILY [facility] Last Admin: 10/17/17 09:01 Dose: 1 mg Atorvastatin Calcium (Lipitor -) 20 mg PO HS [facility] Last Admin: 10/16/17 22:14 Dose: 20 mg Chlorhexidine Gluconate (Hibiclens For Decolonization -) 1 applic TP HS [facility] Last Admin: 10/16/17 22:15 Dose: 1 applic Digoxin (Lanoxin -) 0.125 mg PO DAILY [facility] Last Admin: 10/17/17 09:01 Dose: 0.125 mg Fentanyl (Sublimaze Injection -) 50 mcg IVPUSH [id number] PRN PRN Reason: PAIN-PACU ORDER X 4 DOSES ONLY Heparin Sodium (Porcine) (Heparin -) 1,275 unit IVPUSH PRN PRN PRN Reason: Heparin Heparin Sodium (Porcine) (Heparin -) 5,000 unit IVPUSH PRN PRN PRN Reason: HEPARIN PROTOCOL Heparin Sodium (Porcine) (Heparin -) 1,000 unit IVPUSH PRN PRN PRN Reason: PROTOCOL Lactated Ringer's (Lactated Ringers Solution) 1,000 mls @ 75 mls/hr IV ASDIR [facility] Last Admin: 10/16/17 16:53 Dose: Not Given HEPARIN SOD,PORK IN 0.45% NACL (Heparin-1/2ns 25,000 Units/500) 25,000 units in 500 mls @ 25.5 mls/hr IVPB TITR [facility]; Protocol HEPARIN SOD,PORK IN 0.45% NACL (Heparin-1/2ns 25,000 Units/500) 25,000 units in 500 mls @ 20 mls/hr IVPB TITR [facility]; Protocol Last Admin: 10/17/17 11:25 Dose: 1,000 units/hr, 20 mls/hr Metoprolol Succinate (Toprol Xl -) 200 mg PO DAILY [facility] Last Admin: 10/17/17 09:01 Dose: 200 mg Metoprolol Tartrate (Lopressor Injection -) 5 mg IVPUSH Q4H PRN PRN Reason: HYPERTENSION Last Admin: 10/17/17 11:59 Dose: 5 mg Morphine Sulfate (Morphine Sulfate) 2 mg IVPUSH Q6H PRN PRN Reason: PAIN LEVEL 7 - 10 Last Admin: 10/17/17 03:30 Dose: 2 mg Mupirocin (Bactroban Ointment (For Decolonization) -) 1 applic NS BID [facility] Stop: 10/21/17 21:59 Last Admin: 10/17/17 09:08 Dose: 1 applic Ondansetron HCl (Zofran Injection) 4 mg IVPUSH Q6H PRN PRN Reason: NAUSEA AND/OR VOMITING Last Admin: 10/17/17 09:37 Dose: 4 mg Ondansetron HCl (Zofran Injection) 4 mg IVPUSH Q6H PRN PRN Reason: NAUSEA AND/OR VOMITING Oxycodone HCl (Roxicodone -) 10 mg PO Q4H PRN PRN Reason: PAIN LEVEL 6-10 Stop: 10/17/17 14:46 Last Admin: 10/17/17 09:37 Dose: 10 mg Promethazine HCl (Phenergan Injection -) 12.5 mg IVPUSH Q6H PRN PRN Reason: NAUSEA-FOR RESCUE AFTER 15 MIN - Objective Vital Signs: Vital Signs Temperature 98.9 F 10/17/17 09:43 Pulse Rate 118 H 10/17/17 11:59 Respiratory Rate 18 10/17/17 11:00 Blood Pressure 136/74 10/17/17 11:59 O2 Sat by Pulse Oximetry (%) 100 10/17/17 07:50 Constitutional: Yes: Anxious Eyes: Yes: WNL HENT: Yes: WNL Cardiovascular: Yes: Pulse Irregular, S1 (varies in intensity), S2 Respiratory: Yes: Regular Gastrointestinal: Yes: Soft ...Rectal Exam: Yes: Deferred Genitourinary: No: Anuria Breast(s): Yes: Other (cmpression wrap; s/p surgery) Musculoskeletal: Yes: WNL Extremities: Yes: WNL Edema: No Peripheral Pulses WNL: Yes Integumentary: Yes: Incision, Other Wound/Incision: Yes: Dressing Dry and Intact Neurological: Yes: WNL Psychiatric: Yes: WNL Labs: CBC, BMP 10/17/17 05:30 10/17/17 05:30 INR, PTT INR 1.12 (0.83-1.09) H 10/17/17 09:25 Abnormal Lab Results 10/18/17 10/18/17 10/19/17 11:56 11:56 05:30 RBC 2.83 L Hgb 8.5 L Hct 24.7 L PTT (Actin FS) 62.4 H 64.0 H Anion Gap Calcium Phosphorus Total Bilirubin Total Protein Albumin 10/19/17 10/19/17 05:30 06:00 RBC 2.85 L Hgb 8.5 L Hct 25.2 L PTT (Actin FS) Anion Gap 6 L Calcium 8.2 L Phosphorus 2.2 L Total Bilirubin 2.2 H Total Protein 4.7 L Albumin 2.3 L Problem List - Problems (1) Atrial fibrillation Assessment/Plan: On IV heparin for AF, metallic mitral valve. If no futher bleeding, would restart warfarin. Code(s): I48.91 - UNSPECIFIED ATRIAL FIBRILLATION (2) Postoperative hematoma of subcutaneous tissue Code(s): ZAJ0541 - Qualifiers: Procedure type: non-dermatologic Qualified Code(s): L76.32 - Postprocedural hematoma of skin and subcutaneous tissue following other procedure (3) Breast cancer Code(s): C50.919 - MALIGNANT NEOPLASM OF UNSP SITE OF UNSPECIFIED FEMALE BREAST (4) H/O mitral valve replacement with mechanical valve Code(s): Z95.2 - PRESENCE OF PROSTHETIC HEART VALVE
--- NOTE | 2017-10-17 13:30 | CON.CARD ---
Consult Consult Specialty:: cardiology - History of Present Illness Chief Complaint: Pt just out of surgery today; mild pain at surgical site. 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 Patient is S/P Left breast capsulectomy with removal of implant and hematoma, Dr. Engle/Dr. Cano, 10/11/2017. Patient was discharged yesterday on Lovenox (Coumadin not restarted). Today, she noted an increase in pain over the operative site and left arm numbness starting at approximately 3 PM. GLORIA drainage has been unchanged at 30 mL emptied every 3 hours and drainage appearance has been consistent. Her most recent oxycodone was taken at 10 PM; patient states that this "did nothing "to help her pain. She denies shortness of breath. - History Source History Provided By: Patient, Medical Record Limitations to Obtaining History: No Limitations - Past Medical History Cardio/Vascular: Yes: AFIB, Hyperlipdemia, Other (h/o rheumatic fever mechanical mitral valve 2007) ...: No Infectious Disease: Yes: Other (H/O rheumatic fever) - Past Surgical History Past Surgical History: Yes: Mastectomy (left mastectomy with reconstuction 2014) - Alcohol/Substance Use Hx Alcohol Use: No - Smoking History Smoking history: Former smoker Have you smoked in the past 12 months: No Aproximately how many cigarettes per day: 0 If you are a former smoker, when did you quit?: 15 y ago Home Medications - Allergies Allergies/Adverse Reactions: Allergies Allergy/AdvReac Type Severity Reaction Status Date / Time Penicillins Allergy Rash Verified 10/16/17 00:58 - Home Medications Home Medications: Ambulatory Orders Digoxin [Lanoxin -] 0.125 mg PO DAILY 10/29/14 Enoxaparin Sodium [Lovenox] 80 mg SQ BID 10/29/14 Simvastatin 40 mg PO HS 10/29/14 Anastrozole [Arimidex] 1 mg PO DAILY 10/07/17 Metoprolol Succinate 200 mg PO DAILY 10/07/17 Cefadroxil 1 gm PO DAILY #7 tablet 10/14/17 Oxycodone HCl/Acetaminophen [Percocet 5-325 mg Tablet] 1 combo PO Q4H PRN #42 tablet MDD 6 10/14/17 Family Disease History - Family Disease History Family Disease History: Heart Disease: Father (CA), Mother (mitral and aortic valve dz) Vital Signs: Vital Signs Temperature 98.9 F 10/17/17 09:43 Pulse Rate 118 H 10/17/17 11:59 Respiratory Rate 18 10/17/17 11:00 Blood Pressure 136/74 10/17/17 11:59 O2 Sat by Pulse Oximetry (%) 100 10/17/17 07:50 - Other Data Labs, Other Data: CBC, BMP 10/17/17 05:30 10/17/17 05:30 INR, PTT INR 1.12 (0.83-1.09) H 10/17/17 09:25 Troponin, BNP 10/16/17 15:30 Troponin I 0.48 H Troponin, BNP 10/16/17 15:30 Troponin I 0.48 H
--- NOTE | 2017-10-17 14:15 | EKG ---
Test Reason : Blood Pressure : / mmHG Vent. Rate : 111 BPM Atrial Rate : 096 BPM P-R Int : 000 ms QRS Dur : 080 ms QT Int : 308 ms P-R-T Axes : 000 085 227 degrees QTc Int : 418 ms ATRIAL FIBRILLATION WITH RAPID VENTRICULAR RESPONSE LOW VOLTAGE QRS ANTEROLATERAL INFARCT , AGE UNDETERMINED ABNORMAL ECG NO PREVIOUS ECGS AVAILABLE Confirmed by BERNADETTE SANDOVAL MD [id number]) on 10/17/2017 2:15:19 PM Referred By: MD GONZALEZ Confirmed By:BERNADETTE SANDOVAL MD
--- NOTE | 2017-10-17 15:23 | PN ---
Physical Exam: SUBJECTIVE: Patient is a 67 y/o female with a history of a fib, mechanical MV, CAD s/p CABG , breast CA s/p L mastectomy and revision who is s/p L reoperation of hematoma of the breast. Patient states she has some pain in her left arm. Drain has serosanguinous fluid. OBJECTIVE: Vital Signs Temperature 98.9 F 10/17/17 09:43 Pulse Rate 104 H 10/17/17 13:33 Respiratory Rate 18 10/17/17 13:33 Blood Pressure 102/72 10/17/17 13:33 O2 Sat by Pulse Oximetry (%) 100 10/17/17 07:50 GENERAL: The patient is awake, alert, and fully oriented EYES: PERRL, extraocular movements intact ENT: Ears normal, nares patent LUNGS: Breath sounds equal, clear to auscultation bilaterally HEART: Regular rate and rhythm, S1, S2 ABDOMEN: Soft, nontender, nondistended, normoactive bowel sounds EXTREMITIES: warm, well-perfused, no edema, upper extremity mildly bilaterally swollen PSYCH: Normal mood, normal affect. SKIN: Warm, dry, CBCD WBC 14.7 K/mm3 (4.0-10.0) H 10/17/17 05:30 RBC 3.53 M/mm3 (3.60-5.2) L 10/17/17 05:30 Hgb 10.4 GM/dL (10.7-15.3) L 10/17/17 05:30 Hct 30.1 % (32.4-45.2) L 10/17/17 05:30 MCV 85.2 fl (80-96) 10/17/17 05:30 MCHC 34.6 g/dl (32.0-36.0) 10/17/17 05:30 RDW 14.9 % (11.6-15.6) 10/17/17 05:30 Plt Count 160 K/MM3 (134-434) 10/17/17 05:30 MPV 9.5 fl (7.5-11.1) 10/17/17 05:30 CMP Sodium 139 mmol/L (136-145) 10/17/17 05:30 Potassium 4.1 mmol/L (3.5-5.1) 10/17/17 05:30 Chloride 106 mmol/L (98-107) 10/17/17 05:30 Carbon Dioxide 26 mmol/L (21-32) 10/17/17 05:30 Anion Gap 7 MMOL/L (8-16) L 10/17/17 05:30 BUN 15 mg/dL (7-18) 10/17/17 05:30 Creatinine 0.8 mg/dL (0.55-1.02) 10/17/17 05:30 Creat Clearance w eGFR > 60 (>60) 10/17/17 05:30 Calcium 7.8 mg/dL (8.5-10.1) L 10/17/17 05:30 Total Bilirubin 4.8 mg/dL (0.2-1.0) H D 10/17/17 05:30 AST 26 U/L (15-37) 10/17/17 05:30 ALT 25 U/L (12-78) 10/17/17 05:30 Alkaline Phosphatase 65 U/L (45-117) D 10/17/17 05:30 Total Protein 4.4 g/dl (6.4-8.2) L 10/17/17 05:30 Albumin 2.4 g/dl (3.4-5.0) L 10/17/17 05:30 Active Medications Anastrozole (Arimidex -) 1 mg PO DAILY [facility] Last Admin: 10/17/17 09:01 Dose: 1 mg Atorvastatin Calcium (Lipitor -) 20 mg PO HS [facility] Last Admin: 10/16/17 22:14 Dose: 20 mg Chlorhexidine Gluconate (Hibiclens For Decolonization -) 1 applic TP HS [facility] Last Admin: 10/16/17 22:15 Dose: 1 applic Digoxin (Lanoxin -) 0.125 mg PO DAILY [facility] Last Admin: 10/17/17 09:01 Dose: 0.125 mg Fentanyl (Sublimaze Injection -) 50 mcg IVPUSH [id number] PRN PRN Reason: PAIN-PACU ORDER X 4 DOSES ONLY Heparin Sodium (Porcine) (Heparin -) 1,275 unit IVPUSH PRN PRN PRN Reason: Heparin Heparin Sodium (Porcine) (Heparin -) 6,000 unit IVPUSH PRN PRN PRN Reason: Heparin Lactated Ringer's (Lactated Ringers Solution) 1,000 mls @ 75 mls/hr IV ASDIR [facility] Last Admin: 10/16/17 16:53 Dose: Not Given HEPARIN SOD,PORK IN 0.45% NACL (Heparin-1/2ns 25,000 Units/500) 25,000 units in 500 mls @ 25.5 mls/hr IVPB TITR [facility]; Protocol Metoprolol Succinate (Toprol Xl -) 200 mg PO DAILY [facility] Last Admin: 10/17/17 09:01 Dose: 200 mg Metoprolol Tartrate (Lopressor Injection -) 5 mg IVPUSH Q4H PRN PRN Reason: HYPERTENSION Last Admin: 10/17/17 11:59 Dose: 5 mg Morphine Sulfate (Morphine Sulfate) 2 mg IVPUSH Q6H PRN PRN Reason: PAIN LEVEL 7 - 10 Last Admin: 10/17/17 03:30 Dose: 2 mg Mupirocin (Bactroban Ointment (For Decolonization) -) 1 applic NS BID [facility] Stop: 10/21/17 21:59 Last Admin: 10/17/17 09:08 Dose: 1 applic Ondansetron HCl (Zofran Injection) 4 mg IVPUSH Q6H PRN PRN Reason: NAUSEA AND/OR VOMITING Last Admin: 10/17/17 09:37 Dose: 4 mg Ondansetron HCl (Zofran Injection) 4 mg IVPUSH Q6H PRN PRN Reason: NAUSEA AND/OR VOMITING Promethazine HCl (Phenergan Injection -) 12.5 mg IVPUSH Q6H PRN PRN Reason: NAUSEA-FOR RESCUE AFTER 15 MIN ASSESSMENT/PLAN: Patient is a 67 y/o female with a history of a fib, mechanical MV, CAD s/p CABG , breast CA s/p L mastectomy and revision who is s/p L reoperation of hematoma of the breast. Cardio anemia 2/2 to hematoma - s/p hematoma of left chest wound - continue to monitor H/H, transduse as needed - heparin drip , F/u PTT @ 5:30 - morphine 2 mg IV push q 6 prn - fenatnyl 50 mcg IV push prn - f/u Dr. Cano for post op instructions - f/u US of bilateral upper extremity for swelling afib - digoxin .125 mg - lipitor 20 mg po - rate controlled - metoprolol 5 mg if HR > 110 - f/u Dr. Malendowicz - echo when possible Pulmonary - incentive spirometer q1h - NC to keep saturation > 90 % GI nausea - Zofran 4 mg IV push q6h prn - promethazine 12.5 q6h mg IV push Oncology breast Ca - arimidex - s/p chemotherapy DVT ppx - heparin drip, SCD's FEN - Corrected Ca 9.1 - Regular diet Dispo: Visit type - Emergency Visit Emergency Visit: No - New Patient This patient is new to me today: Yes Date on this admission: 10/17/17 - Critical Care Critical Care patient: Yes Total Critical Care Time (in minutes): 41 Critical Care Statement: The care of this patient involved high complexity decision making to prevent further life threatening deterioration of the patient 's condition and/or to evaluate & treat vital organ system(s) failure or risk of failure.
--- NOTE | 2017-10-17 15:27 | PN ---
Progress Note (short form) - Note Progress Note: Anesthesia postop note, POD#1 S/P evacuation of hematoma and hemostasis of left breast wound under GA. Pat seen and examined. VSS.No apparent post anesthesia complications.Signed off.
[2017-10-17] MEDS: oxyCODONE HCL 5 MG TABLET PO PRN ×2 (16:10→23:33)
[2017-10-17] MEDS: HEPARIN SOD,PORK IN 0.45% NACL 25,000 UNITS/500 ML INFUS.BAG IVPB SCH (16:12)
[2017-10-17 18:22] LABS: BASO % 0.5 % (0-2.0); EOS % 1.1 % (0-4.5); HEMOGLOBIN 9.7 GM/dL (10.7-15.3); LYMPH % 9.4 % (8-40); MCH 30.3 pg (25.7-33.7); MCHC 34.6 g/dl (32.0-36.0); MEAN CELL VOLUME 87.6 fl (80-96); MEAN PLT VOLUME 9.5 fl (7.5-11.1); MONO % 11.4 % (3.8-10.2); NEUT % 77.6 % (42.8-82.8); PLATELET COUNT 170 K/MM3 (134-434); RDW 15.1 % (11.6-15.6); WHITE BLOOD COUNT 13.5 K/mm3 (4.0-10.0)
[2017-10-17 18:34] LABS: ANION GAP 8 MMOL/L (8-16); BLOOD UREA NITROGEN 16 mg/dL (7-18); CALCIUM 8.1 mg/dL (8.5-10.1); CHLORIDE 105 mmol/L (98-107); CO2 27 mmol/L (21-32); CREATININE 0.7 mg/dL (0.55-1.02); GLUCOSE,RANDOM 128 mg/dL (74-106); POTASSIUM 4.3 mmol/L (3.5-5.1); SODIUM 140 mmol/L (136-145)
[2017-10-17] MEDS: CHLORHEXIDINE GLUCONATE 4% CLEANSER FOR DECOLONIZATION TP SCH (21:20)
[2017-10-17] MEDS: ATORVASTATIN CA 20 MG TABLET (FP) PO SCH (21:21)
[2017-10-18 01:55] LABS: HEMATOCRIT 25.9 % (32.4-45.2); HEMOGLOBIN 8.9 GM/dL (10.7-15.3); MCH 29.7 pg (25.7-33.7); MCHC 34.3 g/dl (32.0-36.0); MEAN CELL VOLUME 86.7 fl (80-96); MEAN PLT VOLUME 8.7 fl (7.5-11.1); PLATELET COUNT 153 K/MM3 (134-434); RBC 2.98 M/mm3 (3.60-5.2); RDW 15.1 % (11.6-15.6); WHITE BLOOD COUNT 9.3 K/mm3 (4.0-10.0)
[2017-10-18 06:22] LABS: HEMATOCRIT 24.3 % (32.4-45.2); HEMOGLOBIN 8.5 GM/dL (10.7-15.3); MCH 29.7 pg (25.7-33.7); MCHC 34.7 g/dl (32.0-36.0); MEAN CELL VOLUME 85.6 fl (80-96); PLATELET COUNT 122 K/MM3 (134-434); RBC 2.84 M/mm3 (3.60-5.2); WHITE BLOOD COUNT 8.2 K/mm3 (4.0-10.0)
[2017-10-18 06:36] LABS: CHLORIDE 107 mmol/L (98-107); POTASSIUM 3.9 mmol/L (3.5-5.1); SODIUM 141 mmol/L (136-145)
[2017-10-18 07:19] LABS: ALBUMIN 2.1 g/dl (3.4-5.0); ALK PHOS 82 U/L (45-117); ANION GAP 7 MMOL/L (8-16); BILIRUBIN,TOTAL 2.3 mg/dL (0.2-1.0); BLOOD UREA NITROGEN 14 mg/dL (7-18); CALCIUM 7.6 mg/dL (8.5-10.1); CO2 27 mmol/L (21-32); CREATININE 0.7 mg/dL (0.55-1.02); GLUCOSE,RANDOM 103 mg/dL (74-106); MAGNESIUM 1.9 mg/dL (1.8-2.4); PHOSPHOROUS 1.9 mg/dL (2.5-4.9); SGOT/AST 30 U/L (15-37); SGPT/ALT 27 U/L (12-78); TOT PROT 4.4 g/dl (6.4-8.2)
[2017-10-18] MEDS ORDERED: NAPH,MB-DB/K PH,MBDB POWDER PACKET PO ONE (08:00)
[2017-10-18] MEDS: oxyCODONE HCL 5 MG TABLET PO PRN ×4 (08:44→21:36)
[2017-10-18] MEDS: MUPIROCIN 2% TOPICAL OINTMENT FOR DECOLONIZATION NS SCH ×2 (09:02→21:36)
[2017-10-18] MEDS: DIGOXIN 0.125 MG TABLET (FP) PO SCH (09:02)
[2017-10-18] MEDS: ANASTROZOLE 1 MG TABLET PO SCH (09:02)
--- NOTE | 2017-10-18 09:46 | PN ---
Progress Note (short form) - Note Progress Note: no hematoma, Drains thin serous fluid. VSS AF. Theraputic on heparin drip. Arm symptoms improved. Plan for d/c gilbert and more ambulation. observe on heparin in ICU today and monitor PTT to not overshoot. Cardiology to recommend transition to lovenox.
--- NOTE | 2017-10-18 11:44 | PN ---
Teaching Attending Note Name of Resident: Garett Woods ATTENDING PHYSICIAN STATEMENT I saw and evaluated the patient. I reviewed the resident's note and discussed the case with the resident. I agree with the resident's findings and plan as documented. SUBJECTIVE: Pt seen and examined in the ICU. Minimal drainage in JPs. Denies shortness of breath or chest pain. Heart rates better controlled. OBJECTIVE: Vital Signs Period Temp Pulse Resp BP Sys/Bergeron Pulse Ox Last 24 Hr 98 F-98.9 F 90-118 17-20 102-156/50-74 100-100 Intake & Output 10/15/17 10/16/17 10/17/17 10/18/17 23:59 23:59 23:59 23:59 Intake Total 3084 2400 374 Output Total 1340 1066 545 Balance 1744 1334 -171 Weight 78.471 kg 85 kg 85.366 kg Gen: NAD at rest Heart: irregular Lung: decreased breath sounds at the bases Abd: soft, nontender Ext: no edema Drains with serosanguinous fluid CBC, BMP 10/18/17 05:30 10/18/17 05:30 Active Medications Anastrozole (Arimidex -) 1 mg PO DAILY [facility] Last Admin: 10/18/17 09:02 Dose: 1 mg Atorvastatin Calcium (Lipitor -) 20 mg PO HS [facility] Last Admin: 10/17/17 21:21 Dose: 20 mg Chlorhexidine Gluconate (Hibiclens For Decolonization -) 1 applic TP HS [facility] Last Admin: 10/17/17 21:20 Dose: 1 applic Digoxin (Lanoxin -) 0.125 mg PO DAILY [facility] Last Admin: 10/18/17 09:02 Dose: 0.125 mg Fentanyl (Sublimaze Injection -) 50 mcg IVPUSH [id number] PRN PRN Reason: PAIN-PACU ORDER X 4 DOSES ONLY Heparin Sodium (Porcine) (Heparin -) 1,275 unit IVPUSH PRN PRN PRN Reason: Heparin Last Admin: 10/17/17 21:21 Dose: 1,275 unit Heparin Sodium (Porcine) (Heparin -) 6,000 unit IVPUSH PRN PRN PRN Reason: Heparin HEPARIN SOD,PORK IN 0.45% NACL (Heparin-1/2ns 25,000 Units/500) 25,000 units in 500 mls @ 25.5 mls/hr IVPB TITR [facility]; Protocol Last Admin: 10/17/17 16:12 Dose: 1,275 units/hr, 25.5 mls/hr Metoprolol Succinate (Toprol Xl -) 200 mg PO DAILY [facility] Last Admin: 10/18/17 09:02 Dose: 200 mg Metoprolol Tartrate (Lopressor Injection -) 5 mg IVPUSH Q4H PRN PRN Reason: HYPERTENSION Last Admin: 10/17/17 11:59 Dose: 5 mg Morphine Sulfate (Morphine Sulfate) 2 mg IVPUSH Q6H PRN PRN Reason: PAIN LEVEL 7 - 10 Last Admin: 10/17/17 03:30 Dose: 2 mg Mupirocin (Bactroban Ointment (For Decolonization) -) 1 applic NS BID [facility] Stop: 10/21/17 21:59 Last Admin: 10/18/17 09:02 Dose: 1 applic Ondansetron HCl (Zofran Injection) 4 mg IVPUSH Q6H PRN PRN Reason: NAUSEA AND/OR VOMITING Last Admin: 10/17/17 09:37 Dose: 4 mg Ondansetron HCl (Zofran Injection) 4 mg IVPUSH Q6H PRN PRN Reason: NAUSEA AND/OR VOMITING Oxycodone HCl (Roxicodone -) 5 mg PO Q4H PRN PRN Reason: PAIN LEVEL 6-10 Last Admin: 10/18/17 08:44 Dose: 5 mg Promethazine HCl (Phenergan Injection -) 12.5 mg IVPUSH Q6H PRN PRN Reason: NAUSEA-FOR RESCUE AFTER 15 MIN ASSESSMENT AND PLAN: L Breast Ca s/p recent capsulectomy/implant removal Acute Blood Loss Anemia CAD s/p CABG +Troponins likely Demand Ischemia h/o mechanical MVR Atrial Fibrillation with RVR - continue anticoagulation - monitor H/H - transfuse as needed - rate control - echocardiogram if possible - pain control - ensure large bore peripheral access - d/c gilbert - OOB to chair - continue ICU monitoring for now
[2017-10-18 12:17] LABS: HEMATOCRIT 24.7 % (32.4-45.2); HEMOGLOBIN 8.5 GM/dL (10.7-15.3); MCHC 34.4 g/dl (32.0-36.0); MEAN CELL VOLUME 87.2 fl (80-96); MEAN PLT VOLUME 9.2 fl (7.5-11.1); PLATELET COUNT 156 K/MM3 (134-434); RBC 2.83 M/mm3 (3.60-5.2); RDW 14.8 % (11.6-15.6); WHITE BLOOD COUNT 8.9 K/mm3 (4.0-10.0)
[2017-10-18 12:32] VITALS: BMI 32.2
--- NOTE | 2017-10-18 14:04 | PN ---
Physical Exam: SUBJECTIVE: Patient seen and examined. Pt. had no acute events overnight. Pt. denies palpitations, SOB, chest pain, or blurry vision. Pt. states swelling in arm has gotten better. Pt. received 5mg Oxycodone for pain to good effect overnight. OBJECTIVE: Vital Signs Period Temp Pulse Resp BP Sys/Bergeron Pulse Ox Last 24 Hr 98 F-98.9 F 90-109 17-20 107-156/50-74 100-100 GENERAL: The patient is awake, alert, and fully oriented,lying in bed in no acute distress. EYES: sclera anicteric, conjunctiva clear. No ptosis. ENT: moist mucous membranes. LUNGS: Breath sounds equal- limited exam d/t binder, no accessory muscle use. HEART: Irregular rate and rhythm - limited exam d/t binder, 2 JPs draining serosanguinous fluid ABDOMEN: bruise in lower left back that the Pt. was unaware of. Bowel sounds positive EXTREMITIES: 2+ dorsal pedal pulses, warm, well-perfused, no edema, no calf tenderness. PSYCH: Normal mood, normal affect. SKIN: Warm, dry, normal turgor Laboratory Results - last 24 hr 10/17/17 10/17/17 10/17/17 17:45 17:45 17:45 WBC 13.5 H RBC 3.20 L Hgb 9.7 L Hct 28.0 L MCV 87.6 MCH 30.3 MCHC 34.6 RDW 15.1 Plt Count 170 MPV 9.5 Absolute Neuts (auto) 10.5 H Neutrophils % 77.6 Lymphocytes % 9.4 D Monocytes % 11.4 H Eosinophils % 1.1 Basophils % 0.5 Nucleated RBC % 0 PTT (Actin FS) 47.5 H Sodium 140 Potassium 4.3 Chloride 105 Carbon Dioxide 27 Anion Gap 8 BUN 16 Creatinine 0.7 Creat Clearance w eGFR > 60 Random Glucose 128 H Calcium 8.1 L Phosphorus Magnesium Total Bilirubin AST ALT Alkaline Phosphatase Total Protein Albumin 10/18/17 10/18/17 10/18/17 01:45 01:45 05:30 WBC 9.3 8.2 RBC 2.98 L 2.84 L Hgb 8.9 L 8.5 L Hct 25.9 L 24.3 L MCV 86.7 85.6 MCH 29.7 29.7 MCHC 34.3 34.7 RDW 15.1 15.0 Plt Count 153 122 L D MPV 8.7 9.0 Absolute Neuts (auto) Neutrophils % Lymphocytes % Monocytes % Eosinophils % Basophils % Nucleated RBC % PTT (Actin FS) 63.1 H Sodium Potassium Chloride Carbon Dioxide Anion Gap BUN Creatinine Creat Clearance w eGFR Random Glucose Calcium Phosphorus Magnesium Total Bilirubin AST ALT Alkaline Phosphatase Total Protein Albumin 10/18/17 10/18/17 10/18/17 05:30 11:56 11:56 WBC 8.9 RBC 2.83 L Hgb 8.5 L Hct 24.7 L MCV 87.2 MCH 30.0 MCHC 34.4 RDW 14.8 Plt Count 156 D MPV 9.2 Absolute Neuts (auto) Neutrophils % Lymphocytes % Monocytes % Eosinophils % Basophils % Nucleated RBC % PTT (Actin FS) 62.4 H Sodium 141 Potassium 3.9 Chloride 107 Carbon Dioxide 27 Anion Gap 7 L BUN 14 Creatinine 0.7 Creat Clearance w eGFR > 60 Random Glucose 103 Calcium 7.6 L Phosphorus 1.9 L Magnesium 1.9 Total Bilirubin 2.3 H D AST 30 ALT 27 Alkaline Phosphatase 82 D Total Protein 4.4 L Albumin 2.1 L Active Medications Current Medications Anastrozole (Arimidex -) 1 mg PO DAILY [facility] Last Admin: 10/18/17 09:02 Dose: 1 mg Atorvastatin Calcium (Lipitor -) 20 mg PO HS [facility] Last Admin: 10/17/17 21:21 Dose: 20 mg Chlorhexidine Gluconate (Hibiclens For Decolonization -) 1 applic TP HS [facility] Last Admin: 10/17/17 21:20 Dose: 1 applic Digoxin (Lanoxin -) 0.125 mg PO DAILY [facility] Last Admin: 10/18/17 09:02 Dose: 0.125 mg Fentanyl (Sublimaze Injection -) 50 mcg IVPUSH [id number] PRN PRN Reason: PAIN-PACU ORDER X 4 DOSES ONLY Heparin Sodium (Porcine) (Heparin -) 1,275 unit IVPUSH PRN PRN PRN Reason: Heparin Last Admin: 10/17/17 21:21 Dose: 1,275 unit Heparin Sodium (Porcine) (Heparin -) 6,000 unit IVPUSH PRN PRN PRN Reason: Heparin HEPARIN SOD,PORK IN 0.45% NACL (Heparin-1/2ns 25,000 Units/500) 25,000 units in 500 mls @ 25.5 mls/hr IVPB TITR [facility]; Protocol Last Admin: 10/17/17 16:12 Dose: 1,275 units/hr, 25.5 mls/hr Metoprolol Succinate (Toprol Xl -) 200 mg PO DAILY [facility] Last Admin: 10/18/17 09:02 Dose: 200 mg Metoprolol Tartrate (Lopressor Injection -) 5 mg IVPUSH Q4H PRN PRN Reason: HYPERTENSION Last Admin: 10/17/17 11:59 Dose: 5 mg Morphine Sulfate (Morphine Sulfate) 2 mg IVPUSH Q6H PRN PRN Reason: PAIN LEVEL 7 - 10 Last Admin: 10/17/17 03:30 Dose: 2 mg Mupirocin (Bactroban Ointment (For Decolonization) -) 1 applic NS BID [facility] Stop: 10/21/17 21:59 Last Admin: 10/18/17 09:02 Dose: 1 applic Ondansetron HCl (Zofran Injection) 4 mg IVPUSH Q6H PRN PRN Reason: NAUSEA AND/OR VOMITING Last Admin: 10/17/17 09:37 Dose: 4 mg Ondansetron HCl (Zofran Injection) 4 mg IVPUSH Q6H PRN PRN Reason: NAUSEA AND/OR VOMITING Oxycodone HCl (Roxicodone -) 5 mg PO Q4H PRN PRN Reason: PAIN LEVEL 6-10 Last Admin: 10/18/17 13:14 Dose: 5 mg Promethazine HCl (Phenergan Injection -) 12.5 mg IVPUSH Q6H PRN PRN Reason: NAUSEA-FOR RESCUE AFTER 15 MIN ASSESSMENT/PLAN: A 67 y.o. F w/ PMHx. of atrial fibrillation (Coumadin), Mechanical MV, CAD (s/p CABG), breast CA (left mastectomy 10/31/2014, left mastectomy revision, 2014) patient has completed 6 cycles of chemotherapy (cytoxan and taxotere) and is currently on armidex; s/p left breast hematoma evacuation POD #2. #Cardiovascular -Afib rate controlled c/w home dose Metoprolol 200mg, give 5mg Lopressor if HR increases above 110 c/w weight based Heparin drip, PTT in therapeutic range at 62.4, f/u with Dr. Archer for bridging to outpatient AC f/u echocardiogram -HLD c/w Lipitor 20 mg -CHF c/w Digoxin 0.125 mg monitor BMP -Anemia 2/2 hematoma HgB stable at 8.5 today monitor CBC and PTT transfuse as needed -Hypovolemia-resolved transfused 3 units pRBCs perioperatively #Gastroenterology -Nausea and vomiting c/w Ondansetron 4 mg IV push q6h prn c/w promethazine 12.5 q6h mg IV push #Oncology -Left Breast CA c/w Armidex 1 mg PO #F/E/N regular diet Phosphorous repleted Monitor BMP #DVT PPx. -on Heparin drip, will discuss with Cardiology(Dr. Archer) for outpatient AC. Per Patient, she takes Coumadin 2.5mg MWF and 5mg on TThSSu . -SCDs Dispo: -ICU monitoring We will continue to follow the patient. Thank you for this consultative opportunity. Visit type - Emergency Visit Emergency Visit: Yes ED Registration Date: 10/16/17 Care time: The patient presented to the Emergency Department on the above date and was hospitalized for further evaluation of their emergent condition. - New Patient This patient is new to me today: Yes Date on this admission: 10/18/17 - Critical Care Critical Care patient: No - Discharge Referral Referred to [facility] No
--- NOTE | 2017-10-18 17:33 | CONSULT ---
Consult Consult Specialty:: Surgical Oncology/breast Surgery Referred by:: Dr. Cano Reason for Consultation:: History of left breast cancer s/p hematoma evacuation - History of Present Illness Chief Complaint: Left chest wall hematoma History of Present Illness: The patient has a history of a left breast cancer and underwent a mastectomy years ago and had an implant reconstruction at that time. Both her biopsies and mastectomy were complicated by hematomas due to her need for chronic anticoagulation. She also had spontaneous hematomas while on Lovenox at the time leading to her mastectomy. She more recently developed a spontaneous hematoma over the left implant requiring evacuation and removal of the implant last week on TuesdayOctober 11. She has redeveloped a hematoma requiring evacuation by Dr. Cano on TuesdayOctober 16. She is now on iv heparin and is being followed by cardiology and plan is to keep on anticoagulation and discharge. - History Source History Provided By: Patient Limitations to Obtaining History: No Limitations - Past Medical History Cardio/Vascular: Yes: AFIB, Hyperlipdemia, Other (h/o rheumatic fever mechanical mitral valve 2007) ...: No Infectious Disease: Yes: Other (H/O rheumatic fever) - Past Surgical History Past Surgical History: Yes: Mastectomy (left mastectomy with reconstuction 2014) - Alcohol/Substance Use Hx Alcohol Use: No - Smoking History Smoking history: Former smoker Have you smoked in the past 12 months: No Aproximately how many cigarettes per day: 0 If you are a former smoker, when did you quit?: 15 y ago Home Medications - Allergies Allergies/Adverse Reactions: Allergies Allergy/AdvReac Type Severity Reaction Status Date / Time Penicillins Allergy Rash Verified 10/16/17 00:58 - Home Medications Home Medications: Ambulatory Orders Digoxin [Lanoxin -] 0.125 mg PO DAILY 10/29/14 Enoxaparin Sodium [Lovenox] 80 mg SQ BID 10/29/14 Simvastatin 40 mg PO HS 10/29/14 Anastrozole [Arimidex] 1 mg PO DAILY 10/07/17 Metoprolol Succinate 200 mg PO DAILY 10/07/17 Cefadroxil 1 gm PO DAILY #7 tablet 10/14/17 Oxycodone HCl/Acetaminophen [Percocet 5-325 mg Tablet] 1 combo PO Q4H PRN #42 tablet MDD 6 10/14/17 Family Disease History - Family Disease History Family Disease History: Heart Disease: Father ([place]), Mother (mitral and aortic valve dz) Review of Systems - Review of Systems Constitutional: reports: No Symptoms Eyes: reports: No Symptoms Cardiovascular: reports: No Symptoms Respiratory: reports: No Symptoms Gastrointestinal: reports: No Symptoms Breasts: reports: Other (Chest wall tenderness from recent surgery) Musculoskeletal: reports: No Symptoms Integumentary: reports: No Symptoms Neurological: reports: No Symptoms Physical Exam Vital Signs: Vital Signs Temperature 98.4 F 10/18/17 06:00 Pulse Rate 101 H 10/18/17 09:02 Respiratory Rate 20 10/18/17 09:00 Blood Pressure 125/71 10/18/17 08:00 O2 Sat by Pulse Oximetry (%) 100 10/18/17 09:00 Constitutional: Yes: Well Nourished, No Distress, Calm HENT: Yes: Atraumatic, Normocephalic Respiratory: Yes: Regular, CTA Bilaterally Gastrointestinal: Yes: Normal Bowel Sounds, Soft Breast(s): Yes: Other (Left chest wall wound clean and dry. Wounds clean, dry, and intact. Drains fuctioning well with low outputs) Musculoskeletal: Yes: WNL Extremities: Yes: WNL Wound/Incision: Yes: Clean/Dry, Well Approximated Neurological: Yes: Alert, Oriented Labs: CBC, BMP 10/18/17 11:56 10/18/17 05:30 Problem List - Problems (1) Postoperative hematoma of subcutaneous tissue Assessment/Plan: The patient is doing well POD#2 s/p evacuation of hematoma and hemodynamically stable without signs of further bleeding. Maintained on IV heparin drip. H/H stable and patient with good pain control and GLORIA outputs minimal. Appreciate cardiology input. Plan to convert of heparin. Her regular psychiatric technician assistant is Dr. Oliver and she is normally maintained on coumadin and checks her INR regularly to keep her INR between 2.5-3.5. Would consider just switching her to coumadin directly rather than using lovenox again given her history of bleeding on the lovenox 80mg/BID dosing. Would try to keep INR towards 2.5 range, if possible. I will leave this decision to cardiology, however. Once converted, she can be discharged later this week if no signs of further bleeding. Keep patient in tight compressive binder. Code(s): [id number] - Qualifiers: Procedure type: non-dermatologic Qualified Code(s): L76.32 - Postprocedural hematoma of skin and subcutaneous tissue following other procedure
[2017-10-18] MEDS: HEPARIN SOD,PORK IN 0.45% NACL 25,000 UNITS/500 ML INFUS.BAG IVPB SCH (18:14)
--- NOTE | 2017-10-18 20:45 | PN ---
Physical Exam: SUBJECTIVE: Patient seen and examined in the icu, in no acute distress. denies discomfort. OBJECTIVE: Vital Signs Period Temp Pulse Resp BP Sys/Bergeron Pulse Ox Last 24 Hr 98 F-98.9 F 92-109 17-20 103-156/56-76 100 GENERAL: The patient is awake, alert, and fully oriented, in no acute distress. HEAD: Normal with no signs of trauma. EYES: PERRL, extraocular movements intact, sclera anicteric, conjunctiva clear. No ptosis. ENT: Ears normal, nares patent, oropharynx clear without exudates, moist mucous membranes. NECK: Trachea midline, full range of motion, supple. LUNGS: Breath sounds equal, clear to auscultation bilaterally, 2 SHIRA drains w sero sang drainage HEART: Regular rate and rhythm EXTREMITIES: no edema. NEUROLOGICAL: Normal speech, gait not observed. PSYCH: Normal mood, normal affect. SKIN: Warm, dry, normal turgor, no rashes or lesions noted Laboratory Results - last 24 hr 10/18/17 10/18/17 10/18/17 01:45 01:45 05:30 WBC 9.3 8.2 RBC 2.98 L 2.84 L Hgb 8.9 L 8.5 L Hct 25.9 L 24.3 L MCV 86.7 85.6 MCH 29.7 29.7 MCHC 34.3 34.7 RDW 15.1 15.0 Plt Count 153 122 L D MPV 8.7 9.0 PTT (Actin FS) 63.1 H Sodium Potassium Chloride Carbon Dioxide Anion Gap BUN Creatinine Creat Clearance w eGFR Random Glucose Calcium Phosphorus Magnesium Total Bilirubin AST ALT Alkaline Phosphatase Total Protein Albumin 10/18/17 10/18/17 10/18/17 05:30 11:56 11:56 WBC 8.9 RBC 2.83 L Hgb 8.5 L Hct 24.7 L MCV 87.2 MCH 30.0 MCHC 34.4 RDW 14.8 Plt Count 156 D MPV 9.2 PTT (Actin FS) 62.4 H Sodium 141 Potassium 3.9 Chloride 107 Carbon Dioxide 27 Anion Gap 7 L BUN 14 Creatinine 0.7 Creat Clearance w eGFR > 60 Random Glucose 103 Calcium 7.6 L Phosphorus 1.9 L Magnesium 1.9 Total Bilirubin 2.3 H D AST 30 ALT 27 Alkaline Phosphatase 82 D Total Protein 4.4 L Albumin 2.1 L Active Medications Generic Name Dose Route Start Last Admin Trade Name Freq PRN Reason Stop Dose Admin Anastrozole 1 mg 10/17/17 10:00 10/18/17 09:02 Arimidex - PO 1 mg DAILY [facility] Administration Atorvastatin Calcium 20 mg 10/16/17 22:00 10/17/17 21:21 Lipitor - PO 20 mg HS [facility] Administration Chlorhexidine Gluconate 1 applic 10/16/17 22:00 10/17/17 21:20 Hibiclens For Decolonization - TP 1 applic HS [facility] Administration Digoxin 0.125 mg 10/17/17 10:00 10/18/17 09:02 Lanoxin - PO 0.125 mg DAILY [facility] Administration Fentanyl 50 mcg 10/16/17 15:23 Sublimaze Injection - IVPUSH [id number] PRN PAIN-PACU ORDER X 4 DOSES ONLY Heparin Sodium (Porcine) 1,275 unit 10/17/17 14:33 10/17/17 21:21 Heparin - IVPUSH 1,275 unit PRN PRN Administration Heparin Heparin Sodium (Porcine) 6,000 unit 10/17/17 14:32 Heparin - IVPUSH PRN PRN Heparin HEPARIN SOD,PORK IN 0.45% NACL 25,000 units in 500 mls @ 25.5 mls/hr 10/17/17 14:45 10/18/17 18:14 Heparin-1/2ns 25,000 Units/500 IVPB 1,375 units/hr TITR [facility] 27.5 mls/hr Administration Protocol 1,275 UNITS/HR Metoprolol Succinate 200 mg 10/17/17 10:00 10/18/17 09:02 Toprol Xl - PO 200 mg DAILY [facility] Administration Metoprolol Tartrate 5 mg 10/17/17 10:05 10/17/17 11:59 Lopressor Injection - IVPUSH 5 mg Q4H PRN Administration HYPERTENSION Morphine Sulfate 2 mg 10/16/17 15:23 10/17/17 03:30 Morphine Sulfate IVPUSH 2 mg Q6H PRN Administration PAIN LEVEL 7 - 10 Mupirocin 1 applic 10/16/17 22:00 10/18/17 09:02 Bactroban Ointment (For Decolonization) - NS 10/21/17 21:59 1 applic BID [facility] Administration Ondansetron HCl 4 mg 10/16/17 15:23 10/17/17 09:37 Zofran Injection IVPUSH 4 mg Q6H PRN Administration NAUSEA AND/OR VOMITING Ondansetron HCl 4 mg 10/16/17 15:23 Zofran Injection IVPUSH Q6H PRN NAUSEA AND/OR VOMITING Oxycodone HCl 5 mg 10/17/17 16:06 10/18/17 18:13 Roxicodone - PO 5 mg Q4H PRN Administration PAIN LEVEL 6-10 Promethazine HCl 12.5 mg 10/16/17 15:23 Phenergan Injection - IVPUSH Q6H PRN NAUSEA-FOR RESCUE AFTER 15 MIN ASSESSMENT/PLAN: Patient is a 67 year old female with a significant past medical history of atrial fibrillation, mechanical valve, CAD s/p CABG, breast CA s/p left mastectomy and revision s/p six cycles of chemotherapy. Now s/p left breast capsulectomy with removal of implant and hematoma on 10/11/17. Patient was discharged 10/13/17 on full dose Lovenox. On 10/14 patient had increased pain and left arm numbness and came to the ED. She is s/p left breast hematoma evacuation. Hematoma with evacuation: Has SHIRA drains to gravity. Card: Atrial fibrillation: On Metoprolol, lopressor prn, heparin drip with bridge to coumadin. Daily inr. [employer] valve: on heparin drip to coumadin. monitor coags. HLD: on lipitor CHF: on digoxin, monitor intake and output. Hematology Anemia: monitor hmg/hct daily. monitor shira drain output. transfuse if hmg <8 2/2 to cardiac disease Onc: Left breast cancer: on Arimidex. oncology follow up outpatient. fen PO intake adequate monitor electrolytes low salt diet prophy heparin to coumadin, with goal inr between 2.5-3.5
[2017-10-18] MEDS: ATORVASTATIN CA 20 MG TABLET (FP) PO SCH (21:36)
[2017-10-18] MEDS: CHLORHEXIDINE GLUCONATE 4% CLEANSER FOR DECOLONIZATION TP SCH (21:36)
[2017-10-18] MEDS ORDERED: SENNOSIDES 8.6MG TABLET (FP) PO PRN (21:37)
[2017-10-18] MEDS: DOCUSATE SODIUM 100 MG CAPSULE (FP) PO SCH (21:42)
[2017-10-19] MEDS ORDERED: PT OWN MED DRAWER 7, Y5N ONE ×3 (03:10→18:03)
[2017-10-19] MEDS: HEPARIN SOD,PORK IN 0.45% NACL 25,000 UNITS/500 ML INFUS.BAG IVPB SCH ×3 (03:14→21:19)
[2017-10-19] MEDS: DOCUSATE SODIUM 100 MG CAPSULE (FP) PO SCH ×3 (05:24→21:19)
[2017-10-19] MEDS: oxyCODONE HCL 5 MG TABLET PO PRN ×2 (05:39→16:00)
[2017-10-19 06:18] LABS: BASO % 0.7 % (0-2.0); HEMATOCRIT 25.2 % (32.4-45.2); HEMOGLOBIN 8.5 GM/dL (10.7-15.3); LYMPH % 13.1 % (8-40); MCHC 33.9 g/dl (32.0-36.0); MEAN CELL VOLUME 88.5 fl (80-96); MEAN PLT VOLUME 8.8 fl (7.5-11.1); MONO % 8.3 % (3.8-10.2); NEUT % 73.9 % (42.8-82.8); PLATELET COUNT 139 K/MM3 (134-434); RBC 2.85 M/mm3 (3.60-5.2); WHITE BLOOD COUNT 6.1 K/mm3 (4.0-10.0)
[2017-10-19 06:46] LABS: ALK PHOS 101 U/L (45-117); CHLORIDE 104 mmol/L (98-107); POTASSIUM 3.7 mmol/L (3.5-5.1); SODIUM 140 mmol/L (136-145)
[2017-10-19 06:52] LABS: ALBUMIN 2.3 g/dl (3.4-5.0); ANION GAP 6 MMOL/L (8-16); BILIRUBIN,TOTAL 2.2 mg/dL (0.2-1.0); BLOOD UREA NITROGEN 16 mg/dL (7-18); CALCIUM 8.2 mg/dL (8.5-10.1); CO2 30 mmol/L (21-32); CREATININE 0.7 mg/dL (0.55-1.02); GLUCOSE,RANDOM 101 mg/dL (74-106); MAGNESIUM 2.1 mg/dL (1.8-2.4); PHOSPHOROUS 2.2 mg/dL (2.5-4.9); SGOT/AST 29 U/L (15-37); SGPT/ALT 33 U/L (12-78); TOT PROT 4.7 g/dl (6.4-8.2)
--- NOTE | 2017-10-19 07:37 | PN ---
Progress Note (short form) - Note Progress Note: POD 3 post re-op for bleed Theraputic on heparin without signs of repeat bleed Arm symptoms have resolved. 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 No lovenox bridge.
[2017-10-19] MEDS ORDERED: NAPH,MB-DB/K PH,MBDB POWDER PACKET PO ONE (09:00)
[2017-10-19] MEDS: ONDANSETRON 4 MG/2 ML VIAL IVPUSH PRN (09:03)
[2017-10-19] MEDS: DIGOXIN 0.125 MG TABLET (FP) PO SCH (09:10)
[2017-10-19] MEDS: ANASTROZOLE 1 MG TABLET PO SCH (09:10)
[2017-10-19] MEDS: MUPIROCIN 2% TOPICAL OINTMENT FOR DECOLONIZATION NS SCH (09:12)
--- NOTE | 2017-10-19 09:56 | PN ---
Progress Note, Physician Chief Complaint: Pt A&Ox3; OOB in chair; c/o pain under right axilla (pinching from compression wrap likelhy); otherwise , no complaints. 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 Patient is S/P Left breast capsulectomy with removal of implant and hematoma, Dr. Engle/Dr. Cano, 10/11/2017. Patient was discharged yesterday on Lovenox (Coumadin not restarted). Today, she noted an increase in pain over the operative site and left arm numbness starting at approximately 3 PM. GLORIA drainage has been unchanged at 30 mL emptied every 3 hours and drainage appearance has been consistent. Her most recent oxycodone was taken at 10 PM; patient states that this "did nothing "to help her pain. She denies shortness of breath. - Current Medication List Current Medications: Active Medications Anastrozole (Arimidex -) 1 mg PO DAILY [facility] Last Admin: 10/19/17 09:10 Dose: 1 mg Atorvastatin Calcium (Lipitor -) 20 mg PO HS [facility] Last Admin: 10/18/17 21:36 Dose: 20 mg Chlorhexidine Gluconate (Hibiclens For Decolonization -) 1 applic TP HS [facility] Last Admin: 10/18/17 21:36 Dose: 1 applic Digoxin (Lanoxin -) 0.125 mg PO DAILY [facility] Last Admin: 10/19/17 09:10 Dose: 0.125 mg Docusate Sodium (Colace -) 100 mg PO TID [facility] Last Admin: 10/19/17 05:24 Dose: 100 mg Fentanyl (Sublimaze Injection -) 50 mcg IVPUSH [id number] PRN PRN Reason: PAIN-PACU ORDER X 4 DOSES ONLY Heparin Sodium (Porcine) (Heparin -) 1,275 unit IVPUSH PRN PRN PRN Reason: Heparin Last Admin: 10/17/17 21:21 Dose: 1,275 unit Heparin Sodium (Porcine) (Heparin -) 6,000 unit IVPUSH PRN PRN PRN Reason: Heparin HEPARIN SOD,PORK IN 0.45% NACL (Heparin-1/2ns 25,000 Units/500) 25,000 units in 500 mls @ 25.5 mls/hr IVPB TITR [facility]; Protocol Last Admin: 10/19/17 03:14 Dose: 1,375 units/hr, 27.5 mls/hr Metoprolol Succinate (Toprol Xl -) 200 mg PO DAILY [facility] Last Admin: 10/19/17 09:10 Dose: 200 mg Metoprolol Tartrate (Lopressor Injection -) 5 mg IVPUSH Q4H PRN PRN Reason: HYPERTENSION Last Admin: 10/17/17 11:59 Dose: 5 mg Morphine Sulfate (Morphine Sulfate) 2 mg IVPUSH Q6H PRN PRN Reason: PAIN LEVEL 7 - 10 Last Admin: 10/17/17 03:30 Dose: 2 mg Mupirocin (Bactroban Ointment (For Decolonization) -) 1 applic NS BID [facility] Stop: 10/21/17 21:59 Last Admin: 10/19/17 09:12 Dose: 1 applic Ondansetron HCl (Zofran Injection) 4 mg IVPUSH Q6H PRN PRN Reason: NAUSEA AND/OR VOMITING Last Admin: 10/19/17 09:03 Dose: 4 mg Ondansetron HCl (Zofran Injection) 4 mg IVPUSH Q6H PRN PRN Reason: NAUSEA AND/OR VOMITING Oxycodone HCl (Roxicodone -) 5 mg PO Q4H PRN PRN Reason: PAIN LEVEL 6-10 Last Admin: 10/19/17 05:39 Dose: 5 mg Polyethylene Glycol (Miralax (For Daily Use) -) 17 gm PO DAILY [facility] Last Admin: 10/19/17 09:14 Dose: 17 gm Promethazine HCl (Phenergan Injection -) 12.5 mg IVPUSH Q6H PRN PRN Reason: NAUSEA-FOR RESCUE AFTER 15 MIN Senna (Senna -) 2 tab PO HS PRN PRN Reason: CONSTIPATION Last Admin: 10/18/17 21:44 Dose: 2 tab - Objective Vital Signs: Vital Signs Temperature 98.7 F 10/19/17 08:00 Pulse Rate 96 H 10/19/17 09:10 Respiratory Rate 15 09/05/18 08:00 Blood Pressure 115/65 10/19/17 08:00 O2 Sat by Pulse Oximetry (%) 97 10/19/17 08:07 Constitutional: Yes: No Distress Eyes: Yes: WNL HENT: Yes: WNL Neck: Yes: WNL Cardiovascular: Yes: Pulse Irregular Respiratory: Yes: Regular Gastrointestinal: Yes: Soft ...Rectal Exam: Yes: Deferred Genitourinary: No: Anuria Breast(s): Yes: Other (s/p surger) Musculoskeletal: Yes: WNL Extremities: Yes: WNL Edema: No Peripheral Pulses WNL: Yes Integumentary: Yes: Incision Wound/Incision: Yes: Dressing Dry and Intact Neurological: Yes: WNL Psychiatric: Yes: WNL Labs: CBC, BMP 10/19/17 06:00 10/19/17 05:30 INR, PTT INR 1.12 (0.83-1.09) H 10/17/17 09:25 Abnormal Lab Results 10/18/17 10/18/17 10/19/17 11:56 11:56 05:30 RBC 2.83 L Hgb 8.5 L Hct 24.7 L PTT (Actin FS) 62.4 H 64.0 H Anion Gap Calcium Phosphorus Total Bilirubin Total Protein Albumin 10/19/17 10/19/17 05:30 06:00 RBC 2.85 L Hgb 8.5 L Hct 25.2 L PTT (Actin FS) Anion Gap 6 L Calcium 8.2 L Phosphorus 2.2 L Total Bilirubin 2.2 H Total Protein 4.7 L Albumin 2.3 L Problem List - Problems (1) Atrial fibrillation Assessment/Plan: On IV heparin for AF, metallic mitral valve. If no futher bleeding or significant drop in HB, would restart warfarin before pt leaves hospital. Code(s): I48.91 - UNSPECIFIED ATRIAL FIBRILLATION (2) Postoperative hematoma of subcutaneous tissue Code(s): AIS3868 - Qualifiers: Procedure type: non-dermatologic Qualified Code(s): L76.32 - Postprocedural hematoma of skin and subcutaneous tissue following other procedure (3) Breast cancer Code(s): C50.919 - MALIGNANT NEOPLASM OF UNSP SITE OF UNSPECIFIED FEMALE BREAST (4) H/O mitral valve replacement with mechanical valve Code(s): Z95.2 - PRESENCE OF PROSTHETIC HEART VALVE
[2017-10-19] MEDS ORDERED: POLYETHYLENE GLYCOL 3350 119 GM BTL PO SCH (10:00)
--- NOTE | 2017-10-19 11:00 | PN ---
Physical Exam: SUBJECTIVE: Patient seen and examined. No acute events overnight. Pt. received pain medication last night to good effect. Pt. complains of left chest pain this morning. 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 OBJECTIVE: Vital Signs Period Temp Pulse Resp BP Sys/Bergeron Pulse Ox Last 24 Hr 98.2 F-98.7 F 78-98 15-20 93-143/54-76 97-100 GENERAL: The patient is awake, alert, and fully oriented, in no acute distress. LUNGS: Breath sounds equal, no wheezes, mild diffuse crackles on the left, no accessory muscle use. HEART: Regular rate and rhythm, S1, S2 without murmur, rub or gallop. EXTREMITIES: 2+ dorsal pedal pulses, warm, well-perfused, no edema, no calf tenderness. PSYCH: Normal mood, normal affect. SKIN: Warm, dry, normal turgor Laboratory Results - last 24 hr 10/16/17 10/18/17 10/18/17 01:50 11:56 11:56 WBC 8.9 RBC 2.83 L Hgb 8.5 L Hct 24.7 L MCV 87.2 MCH 30.0 MCHC 34.4 RDW 14.8 Plt Count 156 D MPV 9.2 Absolute Neuts (auto) Neutrophils % Lymphocytes % Monocytes % Eosinophils % Basophils % Nucleated RBC % PTT (Actin FS) 62.4 H Sodium Potassium Chloride Carbon Dioxide Anion Gap BUN Creatinine Creat Clearance w eGFR Random Glucose Calcium Phosphorus Magnesium Total Bilirubin AST ALT Alkaline Phosphatase Total Protein Albumin Blood Type A POSITIVE Antibody Screen Negative Crossmatch See Detail 10/19/17 10/19/17 10/19/17 05:30 05:30 06:00 WBC 6.1 RBC 2.85 L Hgb 8.5 L Hct 25.2 L MCV 88.5 MCH 30.0 MCHC 33.9 RDW 15.0 Plt Count 139 MPV 8.8 Absolute Neuts (auto) 4.5 Neutrophils % 73.9 Lymphocytes % 13.1 D Monocytes % 8.3 Eosinophils % 4.0 D Basophils % 0.7 Nucleated RBC % 0 PTT (Actin FS) 64.0 H Sodium 140 Potassium 3.7 Chloride 104 Carbon Dioxide 30 Anion Gap 6 L BUN 16 Creatinine 0.7 Creat Clearance w eGFR > 60 Random Glucose 101 Calcium 8.2 L Phosphorus 2.2 L Magnesium 2.1 Total Bilirubin 2.2 H AST 29 ALT 33 Alkaline Phosphatase 101 D Total Protein 4.7 L Albumin 2.3 L Blood Type Antibody Screen Crossmatch Active Medications Current Medications Anastrozole (Arimidex -) 1 mg PO DAILY [facility] Last Admin: 10/19/17 09:10 Dose: 1 mg Atorvastatin Calcium (Lipitor -) 20 mg PO HS [facility] Last Admin: 10/18/17 21:36 Dose: 20 mg Chlorhexidine Gluconate (Hibiclens For Decolonization -) 1 applic TP HS [facility] Last Admin: 10/18/17 21:36 Dose: 1 applic Digoxin (Lanoxin -) 0.125 mg PO DAILY [facility] Last Admin: 10/19/17 09:10 Dose: 0.125 mg Docusate Sodium (Colace -) 100 mg PO TID [facility] Last Admin: 10/19/17 05:24 Dose: 100 mg Fentanyl (Sublimaze Injection -) 50 mcg IVPUSH [id number] PRN PRN Reason: PAIN-PACU ORDER X 4 DOSES ONLY Heparin Sodium (Porcine) (Heparin -) 1,275 unit IVPUSH PRN PRN PRN Reason: Heparin Last Admin: 10/17/17 21:21 Dose: 1,275 unit Heparin Sodium (Porcine) (Heparin -) 6,000 unit IVPUSH PRN PRN PRN Reason: Heparin HEPARIN SOD,PORK IN 0.45% NACL (Heparin-1/2ns 25,000 Units/500) 25,000 units in 500 mls @ 25.5 mls/hr IVPB TITR [facility]; Protocol Last Admin: 10/19/17 03:14 Dose: 1,375 units/hr, 27.5 mls/hr Metoprolol Succinate (Toprol Xl -) 200 mg PO DAILY [facility] Last Admin: 10/19/17 09:10 Dose: 200 mg Metoprolol Tartrate (Lopressor Injection -) 5 mg IVPUSH Q4H PRN PRN Reason: HYPERTENSION Last Admin: 10/17/17 11:59 Dose: 5 mg Morphine Sulfate (Morphine Sulfate) 2 mg IVPUSH Q6H PRN PRN Reason: PAIN LEVEL 7 - 10 Last Admin: 10/17/17 03:30 Dose: 2 mg Mupirocin (Bactroban Ointment (For Decolonization) -) 1 applic NS BID [facility] Stop: 10/21/17 21:59 Last Admin: 10/19/17 09:12 Dose: 1 applic Ondansetron HCl (Zofran Injection) 4 mg IVPUSH Q6H PRN PRN Reason: NAUSEA AND/OR VOMITING Last Admin: 10/19/17 09:03 Dose: 4 mg Ondansetron HCl (Zofran Injection) 4 mg IVPUSH Q6H PRN PRN Reason: NAUSEA AND/OR VOMITING Oxycodone HCl (Roxicodone -) 5 mg PO Q4H PRN PRN Reason: PAIN LEVEL 6-10 Last Admin: 10/19/17 05:39 Dose: 5 mg Polyethylene Glycol (Miralax (For Daily Use) -) 17 gm PO DAILY [facility] Last Admin: 10/19/17 09:14 Dose: 17 gm Promethazine HCl (Phenergan Injection -) 12.5 mg IVPUSH Q6H PRN PRN Reason: NAUSEA-FOR RESCUE AFTER 15 MIN Senna (Senna -) 2 tab PO HS PRN PRN Reason: CONSTIPATION Last Admin: 10/18/17 21:44 Dose: 2 tab Warfarin Sodium (Coumadin -) 5 mg PO DAILY@1800 [facility] ASSESSMENT/PLAN: A 67 y.o. F w/ PMHx. of atrial fibrillation (Coumadin), Mechanical MV, CAD (s/p CABG), breast CA (left mastectomy 10/31/2014, left mastectomy revision, 2014) patient has completed 6 cycles of chemotherapy (cytoxan and taxotere) and is currently on armidex; s/p left breast hematoma evacuation POD #3. #Cardiovascular -Afib rate controlled c/w home dose Metoprolol 200mg, give 5mg Lopressor if HR increases above 110 c/w weight based Heparin drip, PTT in therapeutic range at 64 start Coumadin at 5mg Daily INR with Therapeutic goal of 2.5-3.5 f/u echocardiogram if possible -HLD c/w Lipitor 20 mg -CHF c/w Digoxin 0.125 mg monitor BMP -Anemia 2/2 hematoma HgB stable at 8.5 today monitor CBC and PTT transfuse as needed -Hypovolemia-resolved transfused 3 units pRBCs perioperatively #Gastroenterology -Nausea and vomiting c/w Ondansetron 4 mg IV push q6h prn c/w promethazine 12.5 q6h mg IV push #Oncology -Left Breast CA c/w Armidex 1 mg PO #F/E/N regular diet Phosphorous repleted as Phos. was 2.2 Monitor BMP #DVT PPx. -on Heparin drip, will bridge to warfarin 5mg until therapeutic. Per Patient, she takes Coumadin 2.5mg MWF and 5mg on TThSSu . -SCDs Dispo: -Telemetry We will continue to follow the patient. Thank you for this consultative opportunity. Visit type - Emergency Visit Emergency Visit: Yes ED Registration Date: 10/16/17 Care time: The patient presented to the Emergency Department on the above date and was hospitalized for further evaluation of their emergent condition. - New Patient This patient is new to me today: No - Critical Care Critical Care patient: No - Discharge Referral Referred to [facility] Med P.C.: No
--- NOTE | 2017-10-19 11:26 | PN ---
Teaching Attending Note Name of Resident: Garett Woods ATTENDING PHYSICIAN STATEMENT I saw and evaluated the patient. I reviewed the resident's note and discussed the case with the resident. I agree with the resident's findings and plan as documented. SUBJECTIVE: Pt seen and examined in the ICU. Denies shortness of breath or chest pain. Minimal output from drains. H/H stable. OBJECTIVE: Vital Signs Period Temp Pulse Resp BP Sys/Bergeron Pulse Ox Last 24 Hr 98.2 F-98.7 F 78-98 15-20 93-143/54-76 97-100 Intake & Output 10/16/17 10/17/17 10/18/17 10/19/17 23:59 23:59 23:59 23:59 Intake Total 3084 2400 374 395 Output Total 1340 1066 865 1 Balance 1744 1334 -491 394 Weight 78.471 kg 85 kg 85.275 kg 85.7 kg Gen: NAD in chair Heart: irregular Lung: decreased breath sounds at the bases Abd: soft, nontender Ext: LUE edema Drains with scant fluid CBC, BMP 10/19/17 06:00 10/19/17 05:30 INR, PTT INR 1.12 (0.83-1.09) H 10/17/17 09:25 Active Medications Anastrozole (Arimidex -) 1 mg PO DAILY [facility] Last Admin: 10/19/17 09:10 Dose: 1 mg Atorvastatin Calcium (Lipitor -) 20 mg PO HS [facility] Last Admin: 10/18/17 21:36 Dose: 20 mg Chlorhexidine Gluconate (Hibiclens For Decolonization -) 1 applic TP HS [facility] Last Admin: 10/18/17 21:36 Dose: 1 applic Digoxin (Lanoxin -) 0.125 mg PO DAILY [facility] Last Admin: 10/19/17 09:10 Dose: 0.125 mg Docusate Sodium (Colace -) 100 mg PO TID [facility] Last Admin: 10/19/17 05:24 Dose: 100 mg Fentanyl (Sublimaze Injection -) 50 mcg IVPUSH [id number] PRN PRN Reason: PAIN-PACU ORDER X 4 DOSES ONLY Heparin Sodium (Porcine) (Heparin -) 1,275 unit IVPUSH PRN PRN PRN Reason: Heparin Last Admin: 10/17/17 21:21 Dose: 1,275 unit Heparin Sodium (Porcine) (Heparin -) 6,000 unit IVPUSH PRN PRN PRN Reason: Heparin HEPARIN SOD,PORK IN 0.45% NACL (Heparin-1/2ns 25,000 Units/500) 25,000 units in 500 mls @ 25.5 mls/hr IVPB TITR [facility]; Protocol Last Admin: 10/19/17 03:14 Dose: 1,375 units/hr, 27.5 mls/hr Metoprolol Succinate (Toprol Xl -) 200 mg PO DAILY [facility] Last Admin: 10/19/17 09:10 Dose: 200 mg Metoprolol Tartrate (Lopressor Injection -) 5 mg IVPUSH Q4H PRN PRN Reason: HYPERTENSION Last Admin: 10/17/17 11:59 Dose: 5 mg Morphine Sulfate (Morphine Sulfate) 2 mg IVPUSH Q6H PRN PRN Reason: PAIN LEVEL 7 - 10 Last Admin: 10/17/17 03:30 Dose: 2 mg Mupirocin (Bactroban Ointment (For Decolonization) -) 1 applic NS BID [facility] Stop: 10/21/17 21:59 Last Admin: 10/19/17 09:12 Dose: 1 applic Ondansetron HCl (Zofran Injection) 4 mg IVPUSH Q6H PRN PRN Reason: NAUSEA AND/OR VOMITING Last Admin: 10/19/17 09:03 Dose: 4 mg Ondansetron HCl (Zofran Injection) 4 mg IVPUSH Q6H PRN PRN Reason: NAUSEA AND/OR VOMITING Oxycodone HCl (Roxicodone -) 5 mg PO Q4H PRN PRN Reason: PAIN LEVEL 6-10 Last Admin: 10/19/17 05:39 Dose: 5 mg Polyethylene Glycol (Miralax (For Daily Use) -) 17 gm PO DAILY [facility] Last Admin: 10/19/17 09:14 Dose: 17 gm Promethazine HCl (Phenergan Injection -) 12.5 mg IVPUSH Q6H PRN PRN Reason: NAUSEA-FOR RESCUE AFTER 15 MIN Senna (Senna -) 2 tab PO HS PRN PRN Reason: CONSTIPATION Last Admin: 10/18/17 21:44 Dose: 2 tab Warfarin Sodium (Coumadin -) 5 mg PO DAILY@1800 [facility] ASSESSMENT AND PLAN: L Breast Ca s/p recent capsulectomy/implant removal Acute Blood Loss Anemia CAD s/p CABG +Troponins likely Demand Ischemia h/o mechanical MVR Atrial Fibrillation with RVR - continue anticoagulation, start coumadin today - monitor H/H - transfuse as needed - rate control - pain control - ensure large bore peripheral access - OOB to chair - can monitor on telemetry
[2017-10-19] MEDS ORDERED: WARFARIN NA 5 MG TABLET (UD) PO SCH (12:00)
[2017-10-19 12:10] LABS: INR 1.06 (0.83-1.09)
--- NOTE | 2017-10-19 12:15 | PN ---
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 Patient is S/P Left breast capsulectomy with removal of implant and hematoma, Dr. Engle/Dr. Cano, 10/11/2017. Patient was discharged yesterday on Lovenox (Coumadin not restarted). Today, she noted an increase in pain over the operative site and left arm numbness starting at approximately 3 PM. GLORIA drainage has been unchanged at 30 mL emptied every 3 hours and drainage appearance has been consistent. Her most recent oxycodone was taken at 10 PM; patient states that this "did nothing "to help her pain. She denies shortness of breath. - Current Medication List Current Medications: Active Medications Anastrozole (Arimidex -) 1 mg PO DAILY [facility] Last Admin: 10/19/17 09:10 Dose: 1 mg Atorvastatin Calcium (Lipitor -) 20 mg PO HS [facility] Last Admin: 10/18/17 21:36 Dose: 20 mg Chlorhexidine Gluconate (Hibiclens For Decolonization -) 1 applic TP HS [facility] Last Admin: 10/18/17 21:36 Dose: 1 applic Digoxin (Lanoxin -) 0.125 mg PO DAILY [facility] Last Admin: 10/19/17 09:10 Dose: 0.125 mg Docusate Sodium (Colace -) 100 mg PO TID [facility] Last Admin: 10/19/17 05:24 Dose: 100 mg Fentanyl (Sublimaze Injection -) 50 mcg IVPUSH [id number] PRN PRN Reason: PAIN-PACU ORDER X 4 DOSES ONLY Heparin Sodium (Porcine) (Heparin -) 1,275 unit IVPUSH PRN PRN PRN Reason: Heparin Last Admin: 10/17/17 21:21 Dose: 1,275 unit Heparin Sodium (Porcine) (Heparin -) 6,000 unit IVPUSH PRN PRN PRN Reason: Heparin HEPARIN SOD,PORK IN 0.45% NACL (Heparin-1/2ns 25,000 Units/500) 25,000 units in 500 mls @ 25.5 mls/hr IVPB TITR [facility]; Protocol Last Admin: 10/19/17 03:14 Dose: 1,375 units/hr, 27.5 mls/hr Metoprolol Succinate (Toprol Xl -) 200 mg PO DAILY [facility] Last Admin: 10/19/17 09:10 Dose: 200 mg Metoprolol Tartrate (Lopressor Injection -) 5 mg IVPUSH Q4H PRN PRN Reason: HYPERTENSION Last Admin: 10/17/17 11:59 Dose: 5 mg Morphine Sulfate (Morphine Sulfate) 2 mg IVPUSH Q6H PRN PRN Reason: PAIN LEVEL 7 - 10 Last Admin: 10/17/17 03:30 Dose: 2 mg Mupirocin (Bactroban Ointment (For Decolonization) -) 1 applic NS BID [facility] Stop: 10/21/17 21:59 Last Admin: 10/19/17 09:12 Dose: 1 applic Ondansetron HCl (Zofran Injection) 4 mg IVPUSH Q6H PRN PRN Reason: NAUSEA AND/OR VOMITING Last Admin: 10/19/17 09:03 Dose: 4 mg Ondansetron HCl (Zofran Injection) 4 mg IVPUSH Q6H PRN PRN Reason: NAUSEA AND/OR VOMITING Oxycodone HCl (Roxicodone -) 5 mg PO Q4H PRN PRN Reason: PAIN LEVEL 6-10 Last Admin: 10/19/17 05:39 Dose: 5 mg Polyethylene Glycol (Miralax (For Daily Use) -) 17 gm PO DAILY [facility] Last Admin: 10/19/17 09:14 Dose: 17 gm Promethazine HCl (Phenergan Injection -) 12.5 mg IVPUSH Q6H PRN PRN Reason: NAUSEA-FOR RESCUE AFTER 15 MIN Senna (Senna -) 2 tab PO HS PRN PRN Reason: CONSTIPATION Last Admin: 10/18/17 21:44 Dose: 2 tab Warfarin Sodium (Coumadin -) 5 mg PO DAILY@1800 [facility] - Objective Vital Signs: Vital Signs Temperature 98.7 F 10/19/17 08:00 Pulse Rate 96 H 10/19/17 09:10 Respiratory Rate 15 10/19/17 08:00 Blood Pressure 115/65 10/19/17 08:00 O2 Sat by Pulse Oximetry (%) 97 10/19/17 08:07 Eyes: Yes: WNL, Conjunctiva Clear, EOM Intact HENT: Yes: WNL, Atraumatic, Normocephalic Neck: Yes: WNL, Supple, Trachea Midline Cardiovascular: Yes: Pulse Irregular, S1, S2 Respiratory: Yes: WNL, Regular, CTA Bilaterally Gastrointestinal: Yes: WNL, Normal Bowel Sounds Genitourinary: Yes: WNL Musculoskeletal: Yes: WNL Extremities: Yes: WNL Edema: No Integumentary: Yes: WNL Neurological: Yes: WNL, Alert, Oriented ...Motor Strength: WNL Psychiatric: Yes: WNL Labs: CBC, BMP 10/19/17 06:00 10/19/17 05:30 INR, PTT INR 1.12 (0.83-1.09) H 10/17/17 09:25 Assessment/Plan - Problems (1) Atrial fibrillation Assessment/Plan: On IV heparin for AF, metallic mitral valve. If no futher bleeding or significant drop in HB, would restart warfarin today. Code(s): I48.91 - UNSPECIFIED ATRIAL FIBRILLATION (2) Postoperative hematoma of subcutaneous tissue Code(s): REV4206 - Qualifiers: Procedure type: non-dermatologic Qualified Code(s): L76.32 - Postprocedural hematoma of skin and subcutaneous tissue following other procedure (3) Breast cancer Code(s): C50.919 - MALIGNANT NEOPLASM OF UNSP SITE OF UNSPECIFIED FEMALE BREAST (4) H/O mitral valve replacement with mechanical valve Code(s): Z95.2 - PRESENCE OF PROSTHETIC HEART VALVE cc time 36 min
[2017-10-19] MEDS ORDERED: BISACODYL 5 MG TABLET.DR (FP) PO ONE (16:15)
[2017-10-19] MEDS ORDERED: PNEUMOC 13-VAL CONJ-DIP CRM/PF 0.5 ML DISP.SYRIN IM ONE (18:00)
--- NOTE | 2017-10-19 18:51 | PN ---
Physical Exam: SUBJECTIVE: Patient seen and examined in the icu. denies shortness of breath or chest pain. OBJECTIVE: Vital Signs Period Temp Pulse Resp BP Sys/Bergeron Pulse Ox Last 24 Hr 98.2 F-98.7 F 78-98 12-19 93-115/54-73 97-100 GENERAL: The patient is awake, alert, and fully oriented, in no acute distress. HEAD: Normal with no signs of trauma. EYES: PERRL, extraocular movements intact, sclera anicteric, conjunctiva clear. No ptosis. ENT: Ears normal, nares patent, oropharynx clear without exudates, moist mucous membranes. NECK: Trachea midline, full range of motion, supple. LUNGS: Breath sounds equal, clear to auscultation bilaterally, 2 GLORIA drains w sero sang drainage HEART: Regular rate and rhythm EXTREMITIES: no edema. NEUROLOGICAL: Normal speech, gait not observed. PSYCH: Normal mood, normal affect. SKIN: Warm, dry, normal turgor, no rashes or lesions noted Laboratory Results - last 24 hr 10/16/17 10/19/17 10/19/17 01:50 05:30 05:30 WBC RBC Hgb Hct MCV MCH MCHC RDW Plt Count MPV Absolute Neuts (auto) Neutrophils % Lymphocytes % Monocytes % Eosinophils % Basophils % Nucleated RBC % PT with INR INR PTT (Actin FS) 64.0 H Sodium 140 Potassium 3.7 Chloride 104 Carbon Dioxide 30 Anion Gap 6 L BUN 16 Creatinine 0.7 Creat Clearance w eGFR > 60 Random Glucose 101 Calcium 8.2 L Phosphorus 2.2 L Magnesium 2.1 Total Bilirubin 2.2 H AST 29 ALT 33 Alkaline Phosphatase 101 D Total Protein 4.7 L Albumin 2.3 L Blood Type A POSITIVE Antibody Screen Negative Crossmatch See Detail 10/19/17 10/19/17 06:00 11:31 WBC 6.1 RBC 2.85 L Hgb 8.5 L Hct 25.2 L MCV 88.5 MCH 30.0 MCHC 33.9 RDW 15.0 Plt Count 139 MPV 8.8 Absolute Neuts (auto) 4.5 Neutrophils % 73.9 Lymphocytes % 13.1 D Monocytes % 8.3 Eosinophils % 4.0 D Basophils % 0.7 Nucleated RBC % 0 PT with INR 12.00 INR 1.06 PTT (Actin FS) Sodium Potassium Chloride Carbon Dioxide Anion Gap BUN Creatinine Creat Clearance w eGFR Random Glucose Calcium Phosphorus Magnesium Total Bilirubin AST ALT Alkaline Phosphatase Total Protein Albumin Blood Type Antibody Screen Crossmatch Active Medications Generic Name Dose Route Start Last Admin Trade Name Snow PRN Reason Stop Dose Admin Anastrozole 1 mg 10/17/17 10:00 10/19/17 09:10 Arimidex - PO 1 mg DAILY [facility] Administration Atorvastatin Calcium 20 mg 10/16/17 22:00 10/18/17 21:36 Lipitor - PO 20 mg HS [facility] Administration Chlorhexidine Gluconate 1 applic 10/16/17 22:00 10/18/17 21:36 Hibiclens For Decolonization - TP 1 applic HS [facility] Administration Digoxin 0.125 mg 10/17/17 10:00 10/19/17 09:10 Lanoxin - PO 0.125 mg DAILY [facility] Administration Docusate Sodium 100 mg 10/18/17 22:00 10/19/17 13:57 Colace - PO 100 mg TID [facility] Administration Fentanyl 50 mcg 10/16/17 15:23 Sublimaze Injection - IVPUSH [id number] PRN PAIN-PACU ORDER X 4 DOSES ONLY Heparin Sodium (Porcine) 1,275 unit 10/17/17 14:33 10/17/17 21:21 Heparin - IVPUSH 1,275 unit PRN PRN Administration Heparin Heparin Sodium (Porcine) 6,000 unit 10/17/17 14:32 Heparin - IVPUSH PRN PRN Heparin HEPARIN SOD,PORK IN 0.45% NACL 25,000 units in 500 mls @ 25.5 mls/hr 10/17/17 14:45 10/19/17 15:15 Heparin-1/2ns 25,000 Units/500 IVPB 1,375 units/hr TITR [facility] 27.5 mls/hr Administration Protocol 1,275 UNITS/HR Metoprolol Succinate 200 mg 10/17/17 10:00 10/19/17 09:10 Toprol Xl - PO 200 mg DAILY [facility] Administration Metoprolol Tartrate 5 mg 10/17/17 10:05 10/17/17 11:59 Lopressor Injection - IVPUSH 5 mg Q4H PRN Administration HYPERTENSION Morphine Sulfate 2 mg 10/16/17 15:23 10/17/17 03:30 Morphine Sulfate IVPUSH 2 mg Q6H PRN Administration PAIN LEVEL 7 - 10 Mupirocin 1 applic 10/16/17 22:00 10/19/17 09:12 Bactroban Ointment (For Decolonization) - NS 10/21/17 21:59 1 applic BID [facility] Administration Ondansetron HCl 4 mg 10/16/17 15:23 10/19/17 09:03 Zofran Injection IVPUSH 4 mg Q6H PRN Administration NAUSEA AND/OR VOMITING Ondansetron HCl 4 mg 10/16/17 15:23 Zofran Injection IVPUSH Q6H PRN NAUSEA AND/OR VOMITING Oxycodone HCl 5 mg 10/17/17 16:06 10/19/17 16:00 Roxicodone - PO 5 mg Q4H PRN Administration PAIN LEVEL 6-10 Polyethylene Glycol 17 gm 10/19/17 10:00 10/19/17 09:14 Miralax (For Daily Use) - PO 17 gm DAILY [facility] Administration Promethazine HCl 12.5 mg 10/16/17 15:23 Phenergan Injection - IVPUSH Q6H PRN NAUSEA-FOR RESCUE AFTER 15 MIN Senna 2 tab 10/18/17 21:37 10/18/17 21:44 Senna - PO 2 tab HS PRN Administration CONSTIPATION Warfarin Sodium 5 mg 10/19/17 12:00 10/19/17 13:57 Coumadin - PO 5 mg DAILY@1800 [facility] Administration ASSESSMENT/PLAN: Patient is a 67 year old female with a significant past medical history of atrial fibrillation/mechancal MV (on Coumadin),CAD (s/p CABG), left breast CA with mastectomy and eft mastectomy revision. Patient is s/p left breast hematoma evacuation on 10/16/17. Heme: Hematoma with evacuation: s/p hematoma evaculation on 10/16/2017. Monitor hmg/ hct daily. GLORIA to gravity with scant amt of sero sang drainage. Anemia: monitor hmg/hct and transfuse if hmg <8. s/p prbc transfusions. Onc: Left breast cancer: On Arimidex. oncology follow up outpatient. Card: Atrial fibrillation/mechanical valve: On Metoprolol, lopressor prn. Heparin drip to coumadin bridge with goal inr between 2.5-3.5. HLD: on lipitor Chf: monitor intake,output. on digoxin. fen tolerating po monitor electrolytes low salt diet prophy heparin to coumadin bridge Visit type - Emergency Visit Emergency Visit: Yes ED Registration Date: 10/16/17 Care time: The patient presented to the Emergency Department on the above date and was hospitalized for further evaluation of their emergent condition. - New Patient This patient is new to me today: Yes Date on this admission: 10/19/17 - Critical Care Critical Care patient: Yes Total Critical Care Time (in minutes): 30 Critical Care Statement: The care of this patient involved high complexity decision making to prevent further life threatening deterioration of the patient 's condition and/or to evaluate & treat vital organ system(s) failure or risk of failure.
[2017-10-19] MEDS ORDERED: METOPROLOL TARTRATE 5 MG/5 ML VIAL IVPUSH PRN (19:26)
[2017-10-19] MEDS ORDERED: HEPARIN NA (PORCINE) 5,000 UNITS/ML 1ML VIAL IVPUSH PRN ×3 (19:26)
[2017-10-19] MEDS ORDERED: MORPHINE SULFATE 2 MG/ML VIAL IVPUSH PRN (19:26)
[2017-10-19] MEDS ORDERED: oxyCODONE HCL 5 MG TABLET PO PRN (19:26)
[2017-10-19] MEDS ORDERED: PROMETHAZINE HCL 25 MG/1 ML VIAL IVPUSH PRN (19:26)
[2017-10-19] MEDS ORDERED: SENNOSIDES 8.6MG TABLET (FP) PO PRN (19:26)
[2017-10-19] MEDS ORDERED: ONDANSETRON 4 MG/2 ML VIAL IVPUSH PRN ×2 (19:26)
[2017-10-19] MEDS: ATORVASTATIN CA 20 MG TABLET (FP) PO SCH (21:19)
[2017-10-19] MEDS ORDERED: MUPIROCIN 2% TOPICAL OINTMENT FOR DECOLONIZATION NS SCH (22:00)
[2017-10-19] MEDS ORDERED: CHLORHEXIDINE GLUCONATE 4% CLEANSER FOR DECOLONIZATION TP SCH (22:00)
--- NOTE | 2017-10-19 22:19 | PN ---
Physical Exam: SUBJECTIVE: Patient seen and examined in the icu. c/o of constipation, otherwise comfortable. OBJECTIVE: Vital Signs Period Temp Pulse Resp BP Sys/Bergeron Pulse Ox Last 24 Hr 98.2 F-98.7 F 78-98 12-19 95-115/54-73 97 GENERAL: The patient is awake, alert, and fully oriented, in no acute distress. HEAD: Normal with no signs of trauma. EYES: PERRL, extraocular movements intact, sclera anicteric, conjunctiva clear. No ptosis. ENT: Ears normal, nares patent, oropharynx clear without exudates, moist mucous membranes. NECK: Trachea midline, full range of motion, supple. LUNGS: Breath sounds equal, clear to auscultation bilaterally, 2 GLORIA drains w sero sang drainage HEART: Regular rate and rhythm EXTREMITIES: no edema. NEUROLOGICAL: Normal speech, gait not observed. PSYCH: Normal mood, normal affect. SKIN: Warm, dry, normal turgor, no rashes or lesions noted Laboratory Results - last 24 hr 10/16/17 10/19/17 10/19/17 01:50 05:30 05:30 WBC RBC Hgb Hct MCV MCH MCHC RDW Plt Count MPV Absolute Neuts (auto) Neutrophils % Lymphocytes % Monocytes % Eosinophils % Basophils % Nucleated RBC % PT with INR INR PTT (Actin FS) 64.0 H Sodium 140 Potassium 3.7 Chloride 104 Carbon Dioxide 30 Anion Gap 6 L BUN 16 Creatinine 0.7 Creat Clearance w eGFR > 60 Random Glucose 101 Calcium 8.2 L Phosphorus 2.2 L Magnesium 2.1 Total Bilirubin 2.2 H AST 29 ALT 33 Alkaline Phosphatase 101 D Total Protein 4.7 L Albumin 2.3 L Blood Type A POSITIVE Antibody Screen Negative Crossmatch See Detail 10/19/17 10/19/17 06:00 11:31 WBC 6.1 RBC 2.85 L Hgb 8.5 L Hct 25.2 L MCV 88.5 MCH 30.0 MCHC 33.9 RDW 15.0 Plt Count 139 MPV 8.8 Absolute Neuts (auto) 4.5 Neutrophils % 73.9 Lymphocytes % 13.1 D Monocytes % 8.3 Eosinophils % 4.0 D Basophils % 0.7 Nucleated RBC % 0 PT with INR 12.00 INR 1.06 PTT (Actin FS) Sodium Potassium Chloride Carbon Dioxide Anion Gap BUN Creatinine Creat Clearance w eGFR Random Glucose Calcium Phosphorus Magnesium Total Bilirubin AST ALT Alkaline Phosphatase Total Protein Albumin Blood Type Antibody Screen Crossmatch Active Medications Generic Name Dose Route Start Last Admin Trade Name Freq PRN Reason Stop Dose Admin Anastrozole 1 mg 10/20/17 10:00 Arimidex - PO DAILY [facility] Atorvastatin Calcium 20 mg 10/19/17 22:00 10/19/17 21:19 Lipitor - PO 20 mg HS [facility] Administration Digoxin 0.125 mg 10/20/17 10:00 Lanoxin - PO DAILY [facility] Docusate Sodium 100 mg 10/19/17 22:00 10/19/17 21:19 Colace - PO 100 mg TID [facility] Administration Fentanyl 50 mcg 10/19/17 19:26 Sublimaze Injection - IVPUSH [id number] PRN PAIN-PACU ORDER X 4 DOSES ONLY Heparin Sodium (Porcine) 1,275 unit 10/19/17 19:26 Heparin - IVPUSH PRN PRN Heparin Heparin Sodium (Porcine) 6,000 unit 10/19/17 19:26 Heparin - IVPUSH PRN PRN Heparin HEPARIN SOD,PORK IN 0.45% NACL 25,000 units in 500 mls @ 25.5 mls/hr 10/19/17 19:26 10/19/17 21:19 Heparin-1/2ns 25,000 Units/500 IVPB 1,275 units/hr TITR [facility] 25.5 mls/hr Administration Protocol 1,275 UNITS/HR Metoprolol Succinate 200 mg 10/20/17 10:00 Toprol Xl - PO DAILY [facility] Metoprolol Tartrate 5 mg 10/19/17 19:26 Lopressor Injection - IVPUSH Q4H PRN HYPERTENSION Morphine Sulfate 2 mg 10/19/17 19:26 Morphine Sulfate IVPUSH Q6H PRN PAIN LEVEL 7 - 10 Ondansetron HCl 4 mg 10/19/17 19:26 Zofran Injection IVPUSH Q6H PRN NAUSEA AND/OR VOMITING Oxycodone HCl 5 mg 10/19/17 19:26 10/19/17 20:41 Roxicodone - PO 5 mg Q4H PRN Administration PAIN LEVEL 6-10 Polyethylene Glycol 17 gm 10/20/17 10:00 Miralax (For Daily Use) - PO DAILY [facility] Promethazine HCl 12.5 mg 10/19/17 19:26 Phenergan Injection - IVPUSH Q6H PRN NAUSEA-FOR RESCUE AFTER 15 MIN Senna 2 tab 10/19/17 19:26 10/19/17 20:40 Senna - PO 2 tab HS PRN Administration CONSTIPATION Warfarin Sodium 5 mg 10/20/17 18:00 Coumadin - PO DAILY@1800 [facility] ASSESSMENT/PLAN: Patient is a 67 year old female with a significant past medical history of atrial fibrillation/mechanical MV (on Coumadin),CAD (s/p CABG), left breast CA with mastectomy and left mastectomy revision. Patient is s/p left breast hematoma evacuation on 10/16/17. Heme: Hematoma with evacuation: s/p hematoma evacuation on 10/16/2017. Monitor hmg/hct daily. GLORIA to gravity with scant amt of sero sang drainage. Anemia: monitor hmg/hct and transfuse if hmg <8. s/p prbc transfusions. Onc: Left breast cancer: On Arimidex. oncology follow up outpatient. Card: Atrial fibrillation/mechanical valve: On Metoprolol, lopressor prn. Heparin drip to coumadin bridge with goal inr between 2.5-3.5. HLD: on lipitor Chf: monitor intake,output. on digoxin. fen tolerating po monitor electrolytes low salt diet prophy heparin to coumadin bridge Visit type - Emergency Visit Emergency Visit: Yes ED Registration Date: 10/16/17 Care time: The patient presented to the Emergency Department on the above date and was hospitalized for further evaluation of their emergent condition. - New Patient This patient is new to me today: No - Critical Care Critical Care patient: Yes Total Critical Care Time (in minutes): 30 Critical Care Statement: The care of this patient involved high complexity decision making to prevent further life threatening deterioration of the patient 's condition and/or to evaluate & treat vital organ system(s) failure or risk of failure. - Discharge Referral Referred to [facility] Med P.C.: No
[2017-10-20] MEDS: DOCUSATE SODIUM 100 MG CAPSULE (FP) PO SCH ×3 (05:44→21:13)
[2017-10-20 06:43] LABS: HEMATOCRIT 27.1 % (32.4-45.2); HEMOGLOBIN 9.2 GM/dL (10.7-15.3); MCH 29.9 pg (25.7-33.7); MEAN CELL VOLUME 88.2 fl (80-96); MEAN PLT VOLUME 8.4 fl (7.5-11.1); PLATELET COUNT 196 K/MM3 (134-434); RBC 3.07 M/mm3 (3.60-5.2); RDW 15.4 % (11.6-15.6); WHITE BLOOD COUNT 5.8 K/mm3 (4.0-10.0)
[2017-10-20 07:43] LABS: ANION GAP 10 MMOL/L (8-16); BLOOD UREA NITROGEN 15 mg/dL (7-18); CALCIUM 8.7 mg/dL (8.5-10.1); CHLORIDE 105 mmol/L (98-107); CO2 27 mmol/L (21-32); GLUCOSE,RANDOM 128 mg/dL (74-106); MAGNESIUM 2.2 mg/dL (1.8-2.4); POTASSIUM 4.1 mmol/L (3.5-5.1); SODIUM 142 mmol/L (136-145)
[2017-10-20 07:44] LABS: CREATININE 0.8 mg/dL (0.55-1.02); PHOSPHOROUS 2.9 mg/dL (2.5-4.9)
--- NOTE | 2017-10-20 08:15 | PN ---
Physical Exam: SUBJECTIVE: Patient seen and examined at the bedside. Feels well, in no acute distress. OBJECTIVE: Vital Signs Period Temp Pulse Resp BP Sys/Bergeron Pulse Ox Last 24 Hr 98.2 F-98.7 F 81-98 12-19 95-127/56-74 94 GENERAL: The patient is awake, alert, and fully oriented, in no acute distress. HEAD: Normal with no signs of trauma. EYES: PERRL, extraocular movements intact, sclera anicteric, conjunctiva clear. No ptosis. ENT: Ears normal, nares patent, oropharynx clear without exudates, moist mucous membranes. NECK: Trachea midline, full range of motion, supple. LUNGS: Breath sounds equal, clear to auscultation bilaterally, 2 GLORIA drains w sero sang drainage HEART: Regular rate and rhythm EXTREMITIES: no edema. NEUROLOGICAL: Normal speech, gait not observed. PSYCH: Normal mood, normal affect. SKIN: Warm, dry, normal turgor, no rashes or lesions noted Laboratory Results - last 24 hr 10/16/17 10/19/17 10/20/17 01:50 11:31 05:30 WBC 5.8 RBC 3.07 L Hgb 9.2 L Hct 27.1 L MCV 88.2 MCH 29.9 MCHC 34.0 RDW 15.4 Plt Count 196 D MPV 8.4 PT with INR 12.00 INR 1.06 PTT (Actin FS) Sodium Potassium Chloride Carbon Dioxide Anion Gap BUN Creatinine Creat Clearance w eGFR Random Glucose Calcium Phosphorus Magnesium Blood Type A POSITIVE Antibody Screen Negative Crossmatch See Detail 10/20/17 10/20/17 05:30 05:30 WBC RBC Hgb Hct MCV MCH MCHC RDW Plt Count MPV PT with INR INR PTT (Actin FS) 42.7 H Sodium 142 Potassium 4.1 Chloride 105 Carbon Dioxide 27 Anion Gap 10 BUN 15 Creatinine 0.8 Creat Clearance w eGFR > 60 Random Glucose 128 H Calcium 8.7 Phosphorus 2.9 Magnesium 2.2 Blood Type Antibody Screen Crossmatch Active Medications Generic Name Dose Route Start Last Admin Trade Name Freq PRN Reason Stop Dose Admin Anastrozole 1 mg 10/20/17 10:00 Arimidex - PO DAILY [facility] Atorvastatin Calcium 20 mg 10/19/17 22:00 10/19/17 21:19 Lipitor - PO 20 mg HS [facility] Administration Digoxin 0.125 mg 10/20/17 10:00 Lanoxin - PO DAILY [facility] Docusate Sodium 100 mg 10/19/17 22:00 10/20/17 05:44 Colace - PO 100 mg TID [facility] Administration Fentanyl 50 mcg 10/19/17 19:26 Sublimaze Injection - IVPUSH [id number] PRN PAIN-PACU ORDER X 4 DOSES ONLY Heparin Sodium (Porcine) 1,275 unit 10/19/17 19:26 Heparin - IVPUSH PRN PRN Heparin Heparin Sodium (Porcine) 6,000 unit 10/19/17 19:26 Heparin - IVPUSH PRN PRN Heparin HEPARIN SOD,PORK IN 0.45% NACL 25,000 units in 500 mls @ 25.5 mls/hr 10/19/17 19:26 10/19/17 21:19 Heparin-1/2ns 25,000 Units/500 IVPB 1,275 units/hr TITR [facility] 25.5 mls/hr Administration Protocol 1,275 UNITS/HR Metoprolol Succinate 200 mg 10/20/17 10:00 Toprol Xl - PO DAILY [facility] Metoprolol Tartrate 5 mg 10/19/17 19:26 Lopressor Injection - IVPUSH Q4H PRN HYPERTENSION Morphine Sulfate 2 mg 10/19/17 19:26 Morphine Sulfate IVPUSH Q6H PRN PAIN LEVEL 7 - 10 Ondansetron HCl 4 mg 10/19/17 19:26 Zofran Injection IVPUSH Q6H PRN NAUSEA AND/OR VOMITING Oxycodone HCl 5 mg 10/19/17 19:26 10/19/17 20:41 Roxicodone - PO 5 mg Q4H PRN Administration PAIN LEVEL 6-10 Pneumococcal 13-Valent Conj Vacc 0.5 ml 10/20/17 09:00 Prevnar 13 Syringe - IM 10/20/17 09:01 .ONCE ONE Polyethylene Glycol 17 gm 10/20/17 10:00 Miralax (For Daily Use) - PO DAILY [facility] Promethazine HCl 12.5 mg 10/19/17 19:26 Phenergan Injection - IVPUSH Q6H PRN NAUSEA-FOR RESCUE AFTER 15 MIN Senna 2 tab 10/19/17 19:26 10/19/17 20:40 Senna - PO 2 tab HS PRN Administration CONSTIPATION Warfarin Sodium 5 mg 10/20/17 18:00 Coumadin - PO DAILY@1800 [facility] ASSESSMENT/PLAN: Patient is a 67 year old female with a significant past medical history of atrial fibrillation/mechanical MV (on Coumadin),CAD (s/p CABG), left breast CA with mastectomy and left mastectomy revision. Patient is s/p left breast hematoma evacuation on 10/16/17. Heme: Hematoma: s/p hematoma evacuation on 10/16/2017. Monitor hmg/hct daily. GLORIA to gravity with scant amt of sero sang drainage. Anemia: monitor hmg/hct and transfuse if hmg <8. s/p prbc transfusions. Onc: Left breast cancer: On Arimidex. oncology follow up outpatient. Card: Atrial fibrillation/mechanical valve: On Metoprolol, lopressor prn. Heparin drip to coumadin bridge with goal inr between 2.5-3.5. HLD: on lipitor Chf: monitor intake,output. on digoxin. fen tolerating po monitor electrolytes low salt diet prophy heparin to coumadin bridge Visit type - Emergency Visit Emergency Visit: Yes ED Registration Date: 10/16/17 Care time: The patient presented to the Emergency Department on the above date and was hospitalized for further evaluation of their emergent condition. - New Patient This patient is new to me today: No - Critical Care Critical Care patient: No - Discharge Referral Referred to [facility] Med P.C.: No
[2017-10-20] MEDS ORDERED: PNEUMOC 13-VAL CONJ-DIP CRM/PF 0.5 ML DISP.SYRIN IM ONE (09:00)
[2017-10-20] MEDS: HEPARIN NA (PORCINE) 5,000 UNITS/ML 1ML VIAL IVPUSH PRN (09:00)
[2017-10-20] MEDS: HEPARIN SOD,PORK IN 0.45% NACL 25,000 UNITS/500 ML INFUS.BAG IVPB SCH ×2 (09:00→21:13)
--- NOTE | 2017-10-20 09:01 | PN ---
Progress Note (short form) - Note Progress Note: patient stable without evidence of bleed. HCT is rising. She has started on coumadin and is continuing on heparin until theraputic. This morning her PTT and INR were both subtheraputic and Cardiology and medicine to manage. All tissus viable without collection. GLORIA's thin serous fluid. D/W cardiology who agrees to continue coumadin until theraputic prior to discharge. I will monitor for any bleeding. Continue compression as tolerated.
[2017-10-20] MEDS ORDERED: PT OWN MED DRAWER 7, Y5N ONE (09:03)
[2017-10-20 09:31] LABS: INR 1.08 (0.83-1.09); PROTHROMBIN TIME (PATIENT) 12.2 SEC (9.7-13.0)
[2017-10-20] MEDS: DIGOXIN 0.125 MG TABLET (FP) PO SCH (09:36)
[2017-10-20] MEDS: ANASTROZOLE 1 MG TABLET PO SCH (09:37)
[2017-10-20] MEDS: POLYETHYLENE GLYCOL 3350 119 GM BTL PO SCH (13:23)
[2017-10-20] MEDS: WARFARIN NA 5 MG TABLET (UD) PO SCH (18:23)
[2017-10-20] MEDS: ATORVASTATIN CA 20 MG TABLET (FP) PO SCH (21:13)
[2017-10-21] MEDS: DOCUSATE SODIUM 100 MG CAPSULE (FP) PO SCH ×3 (05:27→21:03)
[2017-10-21 06:15] LABS: HEMATOCRIT 25.7 % (32.4-45.2); HEMOGLOBIN 8.8 GM/dL (10.7-15.3); MCH 30.3 pg (25.7-33.7); MCHC 34.1 g/dl (32.0-36.0); MEAN CELL VOLUME 88.9 fl (80-96); MEAN PLT VOLUME 8.6 fl (7.5-11.1); PLATELET COUNT 179 K/MM3 (134-434); RDW 15.5 % (11.6-15.6); WHITE BLOOD COUNT 5.5 K/mm3 (4.0-10.0)
[2017-10-21] MEDS ORDERED: PT OWN MED DRAWER 7, Y5N ONE (08:21)
[2017-10-21] MEDS: DIGOXIN 0.125 MG TABLET (FP) PO SCH (09:16)
[2017-10-21] MEDS: ANASTROZOLE 1 MG TABLET PO SCH (09:16)
[2017-10-21] MEDS: POLYETHYLENE GLYCOL 3350 119 GM BTL PO SCH (09:18)
--- NOTE | 2017-10-21 10:34 | PN ---
Progress Note, Physician Chief Complaint: Pt A&Ox3; OOB in chair; feeling stronger. 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 Patient is S/P Left breast capsulectomy with removal of implant and hematoma, Dr. Engle/Dr. Cano, 10/11/2017. Patient was discharged yesterday on Lovenox (Coumadin not restarted). Today, she noted an increase in pain over the operative site and left arm numbness starting at approximately 3 PM. GLORIA drainage has been unchanged at 30 mL emptied every 3 hours and drainage appearance has been consistent. Her most recent oxycodone was taken at 10 PM; patient states that this "did nothing "to help her pain. She denies shortness of breath. - Current Medication List Current Medications: Active Medications Anastrozole (Arimidex -) 1 mg PO DAILY [facility] Last Admin: 10/21/17 09:16 Dose: 1 mg Atorvastatin Calcium (Lipitor -) 20 mg PO HS [facility] Last Admin: 10/20/17 21:13 Dose: 20 mg Digoxin (Lanoxin -) 0.125 mg PO DAILY [facility] Last Admin: 10/21/17 09:16 Dose: 0.125 mg Docusate Sodium (Colace -) 100 mg PO TID [facility] Last Admin: 10/21/17 05:27 Dose: 100 mg Fentanyl (Sublimaze Injection -) 50 mcg IVPUSH [id number] PRN PRN Reason: PAIN-PACU ORDER X 4 DOSES ONLY Heparin Sodium (Porcine) (Heparin -) 1,275 unit IVPUSH PRN PRN PRN Reason: Heparin Last Admin: 10/20/17 09:00 Dose: 1,275 unit Heparin Sodium (Porcine) (Heparin -) 6,000 unit IVPUSH PRN PRN PRN Reason: Heparin HEPARIN SOD,PORK IN 0.45% NACL (Heparin-1/2ns 25,000 Units/500) 25,000 units in 500 mls @ 25.5 mls/hr IVPB TITR [facility]; Protocol Last Titration: 10/21/17 09:18 Dose: 1,425 units/hr, 28.5 mls/hr Metoprolol Succinate (Toprol Xl -) 200 mg PO DAILY [facility] Last Admin: 10/21/17 09:17 Dose: 200 mg Metoprolol Tartrate (Lopressor Injection -) 5 mg IVPUSH Q4H PRN PRN Reason: HYPERTENSION Morphine Sulfate (Morphine Sulfate) 2 mg IVPUSH Q6H PRN PRN Reason: PAIN LEVEL 7 - 10 Ondansetron HCl (Zofran Injection) 4 mg IVPUSH Q6H PRN PRN Reason: NAUSEA AND/OR VOMITING Oxycodone HCl (Roxicodone -) 5 mg PO Q4H PRN PRN Reason: PAIN LEVEL 6-10 Last Admin: 10/19/17 20:41 Dose: 5 mg Polyethylene Glycol (Miralax (For Daily Use) -) 17 gm PO DAILY [facility] Last Admin: 10/21/17 09:18 Dose: 17 grams Promethazine HCl (Phenergan Injection -) 12.5 mg IVPUSH Q6H PRN PRN Reason: NAUSEA-FOR RESCUE AFTER 15 MIN Senna (Senna -) 2 tab PO HS PRN PRN Reason: CONSTIPATION Last Admin: 10/19/17 20:40 Dose: 2 tab Warfarin Sodium (Coumadin -) 5 mg PO DAILY@1800 [facility] Last Admin: 10/20/17 18:23 Dose: 5 mg - Objective Vital Signs: Vital Signs Temperature 98.2 F 10/21/17 07:53 Pulse Rate 85 10/21/17 09:16 Respiratory Rate 16 10/21/17 07:57 Blood Pressure 136/80 10/21/17 07:53 O2 Sat by Pulse Oximetry (%) 97 10/21/17 07:57 Constitutional: Yes: No Distress Labs: CBC, BMP 10/21/17 05:30 10/20/17 05:30 INR, PTT INR 1.08 (0.83-1.09) 10/20/17 05:30 Problem List - Problems (1) Atrial fibrillation Assessment/Plan: On IV heparin for AF, metallic mitral valve. Warfarin has been restarted; keep INR 2.5-3.5. ASA 81 mg daily. Code(s): I48.91 - UNSPECIFIED ATRIAL FIBRILLATION (2) Postoperative hematoma of subcutaneous tissue Code(s): [id number] - Qualifiers: Procedure type: non-dermatologic Qualified Code(s): L76.32 - Postprocedural hematoma of skin and subcutaneous tissue following other procedure (3) Breast cancer Assessment/Plan: Case discussed with Dr. Cano. Code(s): C50.919 - MALIGNANT NEOPLASM OF UNSP SITE OF UNSPECIFIED FEMALE BREAST (4) H/O mitral valve replacement with mechanical valve Code(s): Z95.2 - PRESENCE OF PROSTHETIC HEART VALVE
--- NOTE | 2017-10-21 10:52 | PN ---
Progress Note (short form) - Note Progress Note: POD #10 s/p left breast capsulectomy with removal of implant and hematoma POD #5 s/p evacuation of hematoma and hemostasis of left breast wound Alert. Doing well. Ambulating hallways unassisted. Remains on Heparin drip --> bridging to Coumadin. Wearing ABD binder as instructed. Denies n/v/f/c, CP, palpitations, DOLL, SOB, diaphoresis. Last Vital Signs Temp Pulse Resp BP Pulse Ox 98.2 F 85 16 136/80 97 10/21/17 07:53 10/21/17 09:16 10/21/17 07:57 10/21/17 07:53 10/21/17 07:57 HH Trend 10/20/17 10/21/17 05:30 05:30 Hgb 9.2 L 8.8 L Hct 27.1 L 25.7 L INR, PTT INR 1.08 (0.83-1.09) 10/20/17 05:30 GLORIA Trend 10/19/17 10/20/17 05:44 06:00 GLORIA #1 1 10 GLORIA #2 10 GEN: nad Chest: Dressing c/d/i. GLORIA x2 on bulb suction (serous > sanguinous). Ecchymosis. [place] intact. Flaps viable. No evidence of hematoma Problem List - Problems (1) Postoperative hematoma of subcutaneous tissue Assessment/Plan: f/u INR/PTT Cont Hep gtt until therapeutic and bridge to Coumadin (managed by Cardio and Hospitalist) Cont ABD binder to cover chest for added compression Will cont to monitor for bleeding Trend H/H Cont GLORIA to bulb suction & monitor/record output Cont OOB and ambulate Above discussed with Dr. Cano. Code(s): [id number] - Qualifiers: Procedure type: non-dermatologic Qualified Code(s): L76.32 - Postprocedural hematoma of skin and subcutaneous tissue following other procedure (2) Atrial fibrillation Code(s): I48.91 - UNSPECIFIED ATRIAL FIBRILLATION (3) H/O mitral valve replacement with mechanical valve Code(s): Z95.2 - PRESENCE OF PROSTHETIC HEART VALVE
[2017-10-21 12:02] LABS: BASO % 0.9 % (0-2.0); EOS % 2.9 % (0-4.5); HEMATOCRIT 26.1 % (32.4-45.2); HEMOGLOBIN 8.8 GM/dL (10.7-15.3); LYMPH % 10.1 % (8-40); MCH 30.1 pg (25.7-33.7); MCHC 33.8 g/dl (32.0-36.0); MEAN CELL VOLUME 89.2 fl (80-96); MEAN PLT VOLUME 8.6 fl (7.5-11.1); MONO % 10.6 % (3.8-10.2); NEUT % 75.5 % (42.8-82.8); PLATELET COUNT 205 K/MM3 (134-434); RBC 2.93 M/mm3 (3.60-5.2); RDW 15.5 % (11.6-15.6); WHITE BLOOD COUNT 6.1 K/mm3 (4.0-10.0)
[2017-10-21 12:26] LABS: INR 1.33 (0.83-1.09)
[2017-10-21 12:36] LABS: ALBUMIN 2.9 g/dl (3.4-5.0); ALK PHOS 163 U/L (45-117); ANION GAP 10 MMOL/L (8-16); BILIRUBIN,TOTAL 2.5 mg/dL (0.2-1.0); BLOOD UREA NITROGEN 12 mg/dL (7-18); CALCIUM 8.5 mg/dL (8.5-10.1); CHLORIDE 107 mmol/L (98-107); CO2 25 mmol/L (21-32); CREATININE 0.7 mg/dL (0.55-1.02); GLUCOSE,RANDOM 102 mg/dL (74-106); POTASSIUM 3.9 mmol/L (3.5-5.1); SGOT/AST 43 U/L (15-37); SGPT/ALT 51 U/L (12-78); SODIUM 142 mmol/L (136-145); TOT PROT 5.4 g/dl (6.4-8.2)
--- NOTE | 2017-10-21 14:54 | PN ---
Physical Exam: SUBJECTIVE: Patient seen and examined at the bedside. Feels well, ambulating, no pain. OBJECTIVE: heparin to coumadin bridge Vital Signs Period Temp Pulse Resp BP Sys/Bergeron Pulse Ox Last 24 Hr 98.2 F-99.6 F 79-94 16-20 105-145/51-83 97-97 GENERAL: The patient is awake, alert, and fully oriented, in no acute distress. HEAD: Normal with no signs of trauma. EYES: PERRL, extraocular movements intact, sclera anicteric, conjunctiva clear. No ptosis. ENT: Ears normal, nares patent, oropharynx clear without exudates, moist mucous membranes. NECK: Trachea midline, full range of motion, supple. LUNGS: Breath sounds equal, clear to auscultation bilaterally, 2 GLORIA drains w sero sang drainage HEART: Regular rate and rhythm EXTREMITIES: no edema. NEUROLOGICAL: Normal speech, gait not observed. PSYCH: Normal mood, normal affect. SKIN: Warm, dry, normal turgor, no rashes or lesions noted Laboratory Results - last 24 hr 10/20/17 10/21/17 10/21/17 15:15 05:30 05:30 WBC 5.5 RBC 2.90 L Hgb 8.8 L Hct 25.7 L MCV 88.9 MCH 30.3 MCHC 34.1 RDW 15.5 Plt Count 179 MPV 8.6 Absolute Neuts (auto) Neutrophils % Lymphocytes % Monocytes % Eosinophils % Basophils % Nucleated RBC % PT with INR INR PTT (Actin FS) 62.5 H 80.9 H Sodium Potassium Chloride Carbon Dioxide Anion Gap BUN Creatinine Creat Clearance w eGFR Random Glucose Calcium Total Bilirubin AST ALT Alkaline Phosphatase Total Protein Albumin Stool Occult Blood 10/21/17 10/21/17 10/21/17 09:34 11:13 11:13 WBC 6.1 RBC 2.93 L Hgb 8.8 L Hct 26.1 L MCV 89.2 MCH 30.1 MCHC 33.8 RDW 15.5 Plt Count 205 MPV 8.6 Absolute Neuts (auto) 4.6 Neutrophils % 75.5 Lymphocytes % 10.1 D Monocytes % 10.6 H Eosinophils % 2.9 Basophils % 0.9 Nucleated RBC % 0 PT with INR 15.00 H INR 1.33 H PTT (Actin FS) Sodium Potassium Chloride Carbon Dioxide Anion Gap BUN Creatinine Creat Clearance w eGFR Random Glucose Calcium Total Bilirubin AST ALT Alkaline Phosphatase Total Protein Albumin Stool Occult Blood Negative 10/21/17 11:13 WBC RBC Hgb Hct MCV MCH MCHC RDW Plt Count MPV Absolute Neuts (auto) Neutrophils % Lymphocytes % Monocytes % Eosinophils % Basophils % Nucleated RBC % PT with INR INR PTT (Actin FS) Sodium 142 Potassium 3.9 Chloride 107 Carbon Dioxide 25 Anion Gap 10 BUN 12 Creatinine 0.7 Creat Clearance w eGFR > 60 Random Glucose 102 Calcium 8.5 Total Bilirubin 2.5 H AST 43 H ALT 51 Alkaline Phosphatase 163 H D Total Protein 5.4 L Albumin 2.9 L Stool Occult Blood Active Medications Generic Name Dose Route Start Last Admin Trade Name Freq PRN Reason Stop Dose Admin Anastrozole 1 mg 10/20/17 10:00 10/21/17 09:16 Arimidex - PO 1 mg DAILY [facility] Administration Atorvastatin Calcium 20 mg 10/19/17 22:00 10/20/17 21:13 Lipitor - PO 20 mg HS [facility] Administration Digoxin 0.125 mg 10/20/17 10:00 10/21/17 09:16 Lanoxin - PO 0.125 mg DAILY [facility] Administration Docusate Sodium 100 mg 10/19/17 22:00 10/21/17 14:42 Colace - PO 100 mg TID [facility] Administration Fentanyl 50 mcg 10/19/17 19:26 Sublimaze Injection - IVPUSH [id number] PRN PAIN-PACU ORDER X 4 DOSES ONLY Heparin Sodium (Porcine) 1,275 unit 10/19/17 19:26 10/20/17 09:00 Heparin - IVPUSH 1,275 unit PRN PRN Administration Heparin Heparin Sodium (Porcine) 6,000 unit 10/19/17 19:26 Heparin - IVPUSH PRN PRN Heparin HEPARIN SOD,PORK IN 0.45% NACL 25,000 units in 500 mls @ 25.5 mls/hr 10/19/17 19:26 10/21/17 09:18 Heparin-1/2ns 25,000 Units/500 IVPB 1,425 units/hr TITR [facility] 28.5 mls/hr Titration Protocol 1,275 UNITS/HR Metoprolol Succinate 200 mg 10/20/17 10:00 10/21/17 09:17 Toprol Xl - PO 200 mg DAILY [facility] Administration Metoprolol Tartrate 5 mg 10/19/17 19:26 Lopressor Injection - IVPUSH Q4H PRN HYPERTENSION Morphine Sulfate 2 mg 10/19/17 19:26 Morphine Sulfate IVPUSH Q6H PRN PAIN LEVEL 7 - 10 Ondansetron HCl 4 mg 10/19/17 19:26 Zofran Injection IVPUSH Q6H PRN NAUSEA AND/OR VOMITING Oxycodone HCl 5 mg 10/19/17 19:26 10/19/17 20:41 Roxicodone - PO 5 mg Q4H PRN Administration PAIN LEVEL 6-10 Polyethylene Glycol 17 gm 10/20/17 10:00 10/21/17 09:18 Miralax (For Daily Use) - PO 17 grams DAILY [facility] Administration Promethazine HCl 12.5 mg 10/19/17 19:26 Phenergan Injection - IVPUSH Q6H PRN NAUSEA-FOR RESCUE AFTER 15 MIN Senna 2 tab 10/19/17 19:26 10/19/17 20:40 Senna - PO 2 tab HS PRN Administration CONSTIPATION Warfarin Sodium 5 mg 10/20/17 18:00 10/20/17 18:23 Coumadin - PO 5 mg DAILY@1800 [facility] Administration ASSESSMENT/PLAN: Patient is a 67 year old female with a significant past medical history of atrial fibrillation/mechanical MV (on Coumadin),CAD (s/p CABG), left breast CA with mastectomy and left mastectomy revision. Patient is s/p left breast hematoma evacuation on 10/16/17. Heme: Hematoma: s/p hematoma evacuation on 10/16/2017. hmg/hct stable. GLORIA to gravity with scant amt of sero sang drainage. Anemia: s/p prbc transfusions. monitor daily with cbc. Onc: Left breast cancer: On Arimidex. oncology follow up outpatient. Card: Atrial fibrillation/mechanical valve: On Metoprolol, lopressor prn. Heparin drip to coumadin bridge with goal inr between 2.5-3.5, inr today 1.3, will continue coumadin 5mg daily. HLD: on lipitor Chf: monitor intake,output. on digoxin. fen tolerating po monitor electrolytes low salt diet prophy heparin to coumadin bridge Visit type - Emergency Visit Emergency Visit: Yes ED Registration Date: 10/16/17 Care time: The patient presented to the Emergency Department on the above date and was hospitalized for further evaluation of their emergent condition. - New Patient This patient is new to me today: No - Critical Care Critical Care patient: No - Discharge Referral Referred to [facility] No
--- NOTE | 2017-10-21 15:21 | PN ---
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 Patient is S/P Left breast capsulectomy with removal of implant and hematoma, Dr. Engle/Dr. Cano, 10/11/2017. Patient was discharged yesterday on Lovenox (Coumadin not restarted). Today, she noted an increase in pain over the operative site and left arm numbness starting at approximately 3 PM. GLORIA drainage has been unchanged at 30 mL emptied every 3 hours and drainage appearance has been consistent. Her most recent oxycodone was taken at 10 PM; patient states that this "did nothing "to help her pain. She denies shortness of breath. - Current Medication List Current Medications: Active Medications Anastrozole (Arimidex -) 1 mg PO DAILY [facility] Last Admin: 10/21/17 09:16 Dose: 1 mg Atorvastatin Calcium (Lipitor -) 20 mg PO HS [facility] Last Admin: 10/20/17 21:13 Dose: 20 mg Digoxin (Lanoxin -) 0.125 mg PO DAILY [facility] Last Admin: 10/21/17 09:16 Dose: 0.125 mg Docusate Sodium (Colace -) 100 mg PO TID [facility] Last Admin: 10/21/17 14:42 Dose: 100 mg Fentanyl (Sublimaze Injection -) 50 mcg IVPUSH [id number] PRN PRN Reason: PAIN-PACU ORDER X 4 DOSES ONLY Heparin Sodium (Porcine) (Heparin -) 1,275 unit IVPUSH PRN PRN PRN Reason: Heparin Last Admin: 10/20/17 09:00 Dose: 1,275 unit Heparin Sodium (Porcine) (Heparin -) 6,000 unit IVPUSH PRN PRN PRN Reason: Heparin HEPARIN SOD,PORK IN 0.45% NACL (Heparin-1/2ns 25,000 Units/500) 25,000 units in 500 mls @ 25.5 mls/hr IVPB TITR [facility]; Protocol Last Titration: 10/21/17 09:18 Dose: 1,425 units/hr, 28.5 mls/hr Metoprolol Succinate (Toprol Xl -) 200 mg PO DAILY [facility] Last Admin: 10/21/17 09:17 Dose: 200 mg Metoprolol Tartrate (Lopressor Injection -) 5 mg IVPUSH Q4H PRN PRN Reason: HYPERTENSION Morphine Sulfate (Morphine Sulfate) 2 mg IVPUSH Q6H PRN PRN Reason: PAIN LEVEL 7 - 10 Ondansetron HCl (Zofran Injection) 4 mg IVPUSH Q6H PRN PRN Reason: NAUSEA AND/OR VOMITING Oxycodone HCl (Roxicodone -) 5 mg PO Q4H PRN PRN Reason: PAIN LEVEL 6-10 Last Admin: 10/19/17 20:41 Dose: 5 mg Polyethylene Glycol (Miralax (For Daily Use) -) 17 gm PO DAILY [facility] Last Admin: 10/21/17 09:18 Dose: 17 grams Promethazine HCl (Phenergan Injection -) 12.5 mg IVPUSH Q6H PRN PRN Reason: NAUSEA-FOR RESCUE AFTER 15 MIN Senna (Senna -) 2 tab PO HS PRN PRN Reason: CONSTIPATION Last Admin: 10/19/17 20:40 Dose: 2 tab Warfarin Sodium (Coumadin -) 5 mg PO DAILY@1800 [facility] Last Admin: 10/20/17 18:23 Dose: 5 mg - Objective Vital Signs: Vital Signs Temperature 98.5 F 10/21/17 14:00 Pulse Rate 89 10/21/17 14:00 Respiratory Rate 16 10/21/17 07:57 Blood Pressure 108/68 10/21/17 14:00 O2 Sat by Pulse Oximetry (%) 97 10/21/17 07:57 Eyes: Yes: WNL, Conjunctiva Clear, EOM Intact HENT: Yes: WNL, Atraumatic, Normocephalic Neck: Yes: WNL, Supple, Trachea Midline Cardiovascular: Yes: Pulse Irregular, Murmur, S1, S2 Respiratory: Yes: WNL, Regular, CTA Bilaterally Gastrointestinal: Yes: WNL, Normal Bowel Sounds Genitourinary: Yes: WNL Musculoskeletal: Yes: WNL Extremities: Yes: WNL Edema: No Integumentary: Yes: WNL Neurological: Yes: WNL, Alert, Oriented ...Motor Strength: WNL Psychiatric: Yes: WNL Labs: CBC, BMP 10/21/17 11:13 10/21/17 11:13 INR, PTT INR 1.33 (0.83-1.09) H 10/21/17 11:13 Assessment/Plan Problems (1) Atrial fibrillation Assessment/Plan: On IV heparin for AF, metallic mitral valve. Warfarin has been restarted; keep INR 2.5-3.5. ASA 81 mg daily. Code(s): I48.91 - UNSPECIFIED ATRIAL FIBRILLATION (2) Postoperative hematoma of subcutaneous tissue Code(s): [id number] - Qualifiers: Procedure type: non-dermatologic Qualified Code(s): L76.32 - Postprocedural hematoma of skin and subcutaneous tissue following other procedure (3) Breast cancer Assessment/Plan: Case discussed with Dr. Cano. Code(s): C50.919 - MALIGNANT NEOPLASM OF UNSP SITE OF UNSPECIFIED FEMALE BREAST (4) H/O mitral valve replacement with mechanical valve Code(s): Z95.2 - PRESENCE OF PROSTHETIC HEART VALVE
[2017-10-21] MEDS: WARFARIN NA 5 MG TABLET (UD) PO SCH (17:21)
[2017-10-21] MEDS: HEPARIN SOD,PORK IN 0.45% NACL 25,000 UNITS/500 ML INFUS.BAG IVPB SCH (21:03)
[2017-10-21] MEDS: ATORVASTATIN CA 20 MG TABLET (FP) PO SCH (21:03)
[2017-10-22] MEDS ORDERED: PT OWN MED DRAWER 7, Y5N ONE ×2 (03:37→09:07)
[2017-10-22] MEDS: DOCUSATE SODIUM 100 MG CAPSULE (FP) PO SCH ×3 (06:30→21:11)
[2017-10-22 06:49] LABS: HEMATOCRIT 26.3 % (32.4-45.2); HEMOGLOBIN 8.9 GM/dL (10.7-15.3); MCH 30.2 pg (25.7-33.7); MCHC 33.8 g/dl (32.0-36.0); MEAN CELL VOLUME 89.4 fl (80-96); MEAN PLT VOLUME 8.4 fl (7.5-11.1); PLATELET COUNT 193 K/MM3 (134-434); RBC 2.94 M/mm3 (3.60-5.2); RDW 15.7 % (11.6-15.6); WHITE BLOOD COUNT 4.7 K/mm3 (4.0-10.0)
--- NOTE | 2017-10-22 09:00 | PN ---
Progress Note, Physician Chief Complaint: Seen and examined No acute distress TELE: AF with average rate 80bpm - Current Medication List Current Medications: Active Medications Anastrozole (Arimidex -) 1 mg PO DAILY [facility] Last Admin: 10/21/17 09:16 Dose: 1 mg Atorvastatin Calcium (Lipitor -) 20 mg PO HS [facility] Last Admin: 10/21/17 21:03 Dose: 20 mg Digoxin (Lanoxin -) 0.125 mg PO DAILY [facility] Last Admin: 10/21/17 09:16 Dose: 0.125 mg Docusate Sodium (Colace -) 100 mg PO TID [facility] Last Admin: 10/22/17 06:30 Dose: 100 mg Fentanyl (Sublimaze Injection -) 50 mcg IVPUSH [id number] PRN PRN Reason: PAIN-PACU ORDER X 4 DOSES ONLY Heparin Sodium (Porcine) (Heparin -) 1,275 unit IVPUSH PRN PRN PRN Reason: Heparin Last Admin: 10/20/17 09:00 Dose: 1,275 unit Heparin Sodium (Porcine) (Heparin -) 6,000 unit IVPUSH PRN PRN PRN Reason: Heparin HEPARIN SOD,PORK IN 0.45% NACL (Heparin-1/2ns 25,000 Units/500) 25,000 units in 500 mls @ 25.5 mls/hr IVPB TITR [facility]; Protocol Last Admin: 10/21/17 21:03 Dose: Not Given Metoprolol Succinate (Toprol Xl -) 200 mg PO DAILY [facility] Last Admin: 10/21/17 09:17 Dose: 200 mg Metoprolol Tartrate (Lopressor Injection -) 5 mg IVPUSH Q4H PRN PRN Reason: HYPERTENSION Morphine Sulfate (Morphine Sulfate) 2 mg IVPUSH Q6H PRN PRN Reason: PAIN LEVEL 7 - 10 Ondansetron HCl (Zofran Injection) 4 mg IVPUSH Q6H PRN PRN Reason: NAUSEA AND/OR VOMITING Oxycodone HCl (Roxicodone -) 5 mg PO Q4H PRN PRN Reason: PAIN LEVEL 6-10 Last Admin: 10/19/17 20:41 Dose: 5 mg Polyethylene Glycol (Miralax (For Daily Use) -) 17 gm PO DAILY [facility] Last Admin: 10/21/17 09:18 Dose: 17 grams Promethazine HCl (Phenergan Injection -) 12.5 mg IVPUSH Q6H PRN PRN Reason: NAUSEA-FOR RESCUE AFTER 15 MIN Senna (Senna -) 2 tab PO HS PRN PRN Reason: CONSTIPATION Last Admin: 10/19/17 20:40 Dose: 2 tab Warfarin Sodium (Coumadin -) 5 mg PO DAILY@1800 [facility] Last Admin: 10/21/17 17:21 Dose: 5 mg - Objective Vital Signs: Vital Signs Temperature 97.8 F 10/22/17 06:30 Pulse Rate 85 10/22/17 06:30 Respiratory Rate 17 10/22/17 06:30 Blood Pressure 129/48 10/22/17 06:30 O2 Sat by Pulse Oximetry (%) 97 10/21/17 21:00 Constitutional: Yes: No Distress Cardiovascular: Yes: Pulse Irregular Respiratory: Yes: CTA Bilaterally Gastrointestinal: Yes: Soft Edema: No Neurological: Yes: Alert, Oriented Labs: CBC, BMP 10/22/17 05:30 10/21/17 11:13 INR, PTT INR 1.33 (0.83-1.09) H 10/21/17 11:13 Laboratory Tests 10/21/17 10/22/17 10/22/17 11:13 05:30 05:30 WBC 4.7 Hgb 8.9 L Hct 26.3 L Plt Count 193 PTT (Actin FS) 64.7 H Sodium 142 Potassium 3.9 Anion Gap 10 Creatinine 0.7 Laboratory Tests 10/22/17 05:30 PTT (Actin FS) 64.7 H - ....Imaging EKG: Image Reviewed Assessment/Plan IMP: Chronic AF Mechanical MVR CAD s/p CABG Post op, breast surgery REC: 1. AF is well controlled. 2. Hep----> coumadin with goal INR 3.0 3. INR ordered for today. Coverage for [facility]
[2017-10-22] MEDS: DIGOXIN 0.125 MG TABLET (FP) PO SCH (09:20)
[2017-10-22] MEDS: ANASTROZOLE 1 MG TABLET PO SCH (09:20)
[2017-10-22] MEDS: POLYETHYLENE GLYCOL 3350 119 GM BTL PO SCH (09:21)
[2017-10-22] MEDS: HEPARIN NA (PORCINE) 5,000 UNITS/ML 1ML VIAL IVPUSH PRN (09:22)
[2017-10-22 10:10] LABS: INR 1.63 (0.83-1.09); PROTHROMBIN TIME (PATIENT) 18.4 SEC (9.7-13.0)
[2017-10-22 11:33] LABS: INR 1.58 (0.83-1.09); PROTHROMBIN TIME (PATIENT) 17.8 SEC (9.7-13.0)
[2017-10-22 12:25] LABS: BASO % 1.1 % (0-2.0); EOS % 3.9 % (0-4.5); HEMATOCRIT 26.7 % (32.4-45.2); HEMOGLOBIN 8.9 GM/dL (10.7-15.3); LYMPH % 18.8 % (8-40); MCH 30.2 pg (25.7-33.7); MCHC 33.4 g/dl (32.0-36.0); MEAN CELL VOLUME 90.3 fl (80-96); MEAN PLT VOLUME 9.6 fl (7.5-11.1); MONO % 10.1 % (3.8-10.2); NEUT % 66.1 % (42.8-82.8); PLATELET COUNT 190 K/MM3 (134-434); RBC 2.96 M/mm3 (3.60-5.2); RDW 15.8 % (11.6-15.6); WHITE BLOOD COUNT 4.9 K/mm3 (4.0-10.0)
[2017-10-22 14:31] LABS: ALBUMIN 2.8 g/dl (3.4-5.0); ALK PHOS 153 U/L (45-117); ANION GAP 8 MMOL/L (8-16); BILIRUBIN,TOTAL 2.1 mg/dL (0.2-1.0); BLOOD UREA NITROGEN 10 mg/dL (7-18); CALCIUM 8.8 mg/dL (8.5-10.1); CHLORIDE 108 mmol/L (98-107); CO2 27 mmol/L (21-32); CREATININE 0.8 mg/dL (0.55-1.02); GLUCOSE,RANDOM 98 mg/dL (74-106); POTASSIUM 4.2 mmol/L (3.5-5.1); SGOT/AST 40 U/L (15-37); SGPT/ALT 52 U/L (12-78); SODIUM 143 mmol/L (136-145); TOT PROT 5.3 g/dl (6.4-8.2)
--- NOTE | 2017-10-22 16:30 | PN ---
Physical Exam: SUBJECTIVE: Patient seen and examined in the solarium. denies any chest discomfort or shortness of breath. OBJECTIVE: Vital Signs Period Temp Pulse Resp BP Sys/Bergeron Pulse Ox Last 24 Hr 97.6 F-99 F 79-85 16-20 107-129/48-79 97-99 GENERAL: The patient is awake, alert, and fully oriented, in no acute distress. HEAD: Normal with no signs of trauma. EYES: PERRL, extraocular movements intact, sclera anicteric, conjunctiva clear. No ptosis. ENT: Ears normal, nares patent, oropharynx clear without exudates, moist mucous membranes. NECK: Trachea midline, full range of motion, supple. LUNGS: Breath sounds equal, clear to auscultation bilaterally, 2 GLORIA drains w sero sang drainage HEART: Regular rate and rhythm EXTREMITIES: no edema. NEUROLOGICAL: Normal speech, gait not observed. PSYCH: Normal mood, normal affect. SKIN: Warm, dry, normal turgor, no rashes or lesions noted Laboratory Results - last 24 hr 10/22/17 10/22/17 10/22/17 05:30 05:30 05:30 WBC 4.7 RBC 2.94 L Hgb 8.9 L Hct 26.3 L MCV 89.4 MCH 30.2 MCHC 33.8 RDW 15.7 H Plt Count 193 MPV 8.4 Absolute Neuts (auto) Neutrophils % Lymphocytes % Monocytes % Eosinophils % Basophils % Nucleated RBC % PT with INR 17.80 H INR 1.58 H PTT (Actin FS) 64.7 H Sodium Potassium Chloride Carbon Dioxide Anion Gap BUN Creatinine Creat Clearance w eGFR Random Glucose Calcium Total Bilirubin AST ALT Alkaline Phosphatase Total Protein Albumin 10/22/17 10/22/17 10/22/17 06:00 06:00 09:30 WBC 4.9 RBC 2.96 L Hgb 8.9 L Hct 26.7 L MCV 90.3 MCH 30.2 MCHC 33.4 RDW 15.8 H Plt Count 190 MPV 9.6 D Absolute Neuts (auto) 3.2 Neutrophils % 66.1 Lymphocytes % 18.8 D Monocytes % 10.1 Eosinophils % 3.9 Basophils % 1.1 Nucleated RBC % 0 PT with INR 18.40 H INR 1.63 H PTT (Actin FS) Sodium 143 Potassium 4.2 Chloride 108 H Carbon Dioxide 27 Anion Gap 8 BUN 10 Creatinine 0.8 Creat Clearance w eGFR > 60 Random Glucose 98 Calcium 8.8 Total Bilirubin 2.1 H AST 40 H ALT 52 Alkaline Phosphatase 153 H D Total Protein 5.3 L Albumin 2.8 L Active Medications Generic Name Dose Route Start Last Admin Trade Name Freq PRN Reason Stop Dose Admin Anastrozole 1 mg 10/20/17 10:00 10/22/17 09:20 Arimidex - PO 1 mg DAILY [facility] Administration Atorvastatin Calcium 20 mg 10/19/17 22:00 10/21/17 21:03 Lipitor - PO 20 mg HS [facility] Administration Digoxin 0.125 mg 10/20/17 10:00 10/22/17 09:20 Lanoxin - PO 0.125 mg DAILY [facility] Administration Docusate Sodium 100 mg 10/19/17 22:00 10/22/17 14:56 Colace - PO 100 mg TID [facility] Administration Fentanyl 50 mcg 10/19/17 19:26 Sublimaze Injection - IVPUSH [id number] PRN PAIN-PACU ORDER X 4 DOSES ONLY Heparin Sodium (Porcine) 1,275 unit 10/19/17 19:26 10/22/17 09:22 Heparin - IVPUSH 1,275 unit PRN PRN Administration Heparin Heparin Sodium (Porcine) 6,000 unit 10/19/17 19:26 Heparin - IVPUSH PRN PRN Heparin HEPARIN SOD,PORK IN 0.45% NACL 25,000 units in 500 mls @ 25.5 mls/hr 10/19/17 19:26 10/21/17 21:03 Heparin-1/2ns 25,000 Units/500 IVPB Not Given TITR [facility] Protocol 1,275 UNITS/HR Metoprolol Succinate 200 mg 10/20/17 10:00 10/22/17 09:19 Toprol Xl - PO 200 mg DAILY [facility] Administration Metoprolol Tartrate 5 mg 10/19/17 19:26 Lopressor Injection - IVPUSH Q4H PRN HYPERTENSION Morphine Sulfate 2 mg 10/19/17 19:26 Morphine Sulfate IVPUSH Q6H PRN PAIN LEVEL 7 - 10 Ondansetron HCl 4 mg 10/19/17 19:26 Zofran Injection IVPUSH Q6H PRN NAUSEA AND/OR VOMITING Oxycodone HCl 5 mg 10/19/17 19:26 10/19/17 20:41 Roxicodone - PO 5 mg Q4H PRN Administration PAIN LEVEL 6-10 Polyethylene Glycol 17 gm 10/20/17 10:00 10/22/17 09:21 Miralax (For Daily Use) - PO 17 grams DAILY [facility] Administration Promethazine HCl 12.5 mg 10/19/17 19:26 Phenergan Injection - IVPUSH Q6H PRN NAUSEA-FOR RESCUE AFTER 15 MIN Senna 2 tab 10/19/17 19:26 10/19/17 20:40 Senna - PO 2 tab HS PRN Administration CONSTIPATION Warfarin Sodium 5 mg 10/20/17 18:00 10/21/17 17:21 Coumadin - PO 5 mg DAILY@1800 [facility] Administration ASSESSMENT/PLAN: Patient is a 67 year old female with a significant past medical history of atrial fibrillation/mechanical MV (on Coumadin),CAD (s/p CABG), left breast CA with mastectomy and left mastectomy revision. Patient is s/p left breast hematoma evacuation on 10/16/17. Heme: Hematoma: s/p hematoma evacuation on 10/16/2017. hmg/hct stable. GLORIA to gravity with scant amt of sero sang drainage. Anemia: s/p prbc transfusions. monitor daily with cbc. Onc: Left breast cancer: On Arimidex. oncology follow up outpatient. Card: Atrial fibrillation/mechanical valve: On Metoprolol, lopressor prn. Heparin drip to coumadin bridge with goal inr between 2.5-3.5, inr today 1.6, will continue coumadin 5mg daily. HLD: on lipitor Chf: monitor intake,output. on digoxin. fen tolerating po monitor electrolytes low salt diet prophy heparin to coumadin bridge Visit type - Emergency Visit Emergency Visit: Yes ED Registration Date: 10/16/17 Care time: The patient presented to the Emergency Department on the above date and was hospitalized for further evaluation of their emergent condition. - New Patient This patient is new to me today: No - Critical Care Critical Care patient: No - Discharge Referral Referred to [facility] No
--- NOTE | 2017-10-22 17:18 | PN ---
Progress Note (short form) - Note Progress Note: POD 7: No bleed, fully anticoagulated on heparin and bridging to coumadin. GLORIA's to remain. I will see patient in office on Tuesday to remove drains. Medicine to discharge patient once theraputic on coumadin.
[2017-10-22] MEDS: WARFARIN NA 5 MG TABLET (UD) PO SCH (17:26)
[2017-10-22] MEDS: ATORVASTATIN CA 20 MG TABLET (FP) PO SCH (22:17)
[2017-10-23] MEDS ORDERED: PT OWN MED DRAWER 7, Y5N ONE ×3 (01:02→19:58)
[2017-10-23] MEDS: ACETAMINOPHEN 325 MG TABLET (FP) PO PRN ×2 (03:13→21:10)
[2017-10-23] MEDS: DOCUSATE SODIUM 100 MG CAPSULE (FP) PO SCH ×3 (06:23→21:06)
[2017-10-23 07:39] LABS: HEMATOCRIT 27.4 % (32.4-45.2); HEMOGLOBIN 9.1 GM/dL (10.7-15.3); MCH 29.8 pg (25.7-33.7); MEAN CELL VOLUME 90.3 fl (80-96); MEAN PLT VOLUME 8.6 fl (7.5-11.1); PLATELET COUNT 205 K/MM3 (134-434); RBC 3.04 M/mm3 (3.60-5.2); WHITE BLOOD COUNT 5.2 K/mm3 (4.0-10.0)
[2017-10-23] MEDS: DIGOXIN 0.125 MG TABLET (FP) PO SCH (09:43)
[2017-10-23] MEDS: ANASTROZOLE 1 MG TABLET PO SCH ×2 (09:44→12:28)
[2017-10-23] MEDS: POLYETHYLENE GLYCOL 3350 119 GM BTL PO SCH (09:44)
--- NOTE | 2017-10-23 09:47 | PN ---
Progress Note, Physician Chief Complaint: Seen and examined in coverage for Dr. Bar Denies bleeding, SOB, palps or CP TELE: reviewed- Controlled AF, with occasional aberrant conduction. No pauses. History of Present Illness: INR is rising, but subT as of yesterday PTTs remain within range. - Current Medication List Current Medications: Active Medications Acetaminophen (Tylenol -) 325 mg PO Q6H PRN PRN Reason: PAIN LEVEL 4 - 6 Last Admin: 10/23/17 03:13 Dose: 325 mg Anastrozole (Arimidex -) 1 mg PO DAILY [facility] Last Admin: 10/23/17 09:44 Dose: Not Given Atorvastatin Calcium (Lipitor -) 20 mg PO HS [facility] Last Admin: 10/22/17 22:17 Dose: 20 mg Digoxin (Lanoxin -) 0.125 mg PO DAILY [facility] Last Admin: 10/23/17 09:43 Dose: 0.125 mg Docusate Sodium (Colace -) 100 mg PO TID [facility] Last Admin: 10/23/17 06:23 Dose: Not Given Fentanyl (Sublimaze Injection -) 50 mcg IVPUSH [id number] PRN PRN Reason: PAIN-PACU ORDER X 4 DOSES ONLY Heparin Sodium (Porcine) (Heparin -) 1,275 unit IVPUSH PRN PRN PRN Reason: Heparin Last Admin: 10/22/17 09:22 Dose: 1,275 unit Heparin Sodium (Porcine) (Heparin -) 6,000 unit IVPUSH PRN PRN PRN Reason: Heparin HEPARIN SOD,PORK IN 0.45% NACL (Heparin-1/2ns 25,000 Units/500) 25,000 units in 500 mls @ 25.5 mls/hr IVPB TITR [facility]; Protocol Last Titration: 10/23/17 09:42 Dose: 1,300 units/hr, 26 mls/hr Metoprolol Succinate (Toprol Xl -) 200 mg PO DAILY [facility] Last Admin: 10/23/17 09:43 Dose: 200 mg Metoprolol Tartrate (Lopressor Injection -) 5 mg IVPUSH Q4H PRN PRN Reason: HYPERTENSION Ondansetron HCl (Zofran Injection) 4 mg IVPUSH Q6H PRN PRN Reason: NAUSEA AND/OR VOMITING Polyethylene Glycol (Miralax (For Daily Use) -) 17 gm PO DAILY [facility] Last Admin: 10/23/17 09:44 Dose: Not Given Promethazine HCl (Phenergan Injection -) 12.5 mg IVPUSH Q6H PRN PRN Reason: NAUSEA-FOR RESCUE AFTER 15 MIN Senna (Senna -) 2 tab PO HS PRN PRN Reason: CONSTIPATION Last Admin: 10/19/17 20:40 Dose: 2 tab Warfarin Sodium (Coumadin -) 5 mg PO DAILY@1800 [facility] Last Admin: 10/22/17 17:26 Dose: 5 mg - Objective Vital Signs: Vital Signs Temperature 98.6 F 10/23/17 06:03 Pulse Rate 79 10/23/17 09:43 Respiratory Rate 18 10/23/17 06:03 Blood Pressure 135/75 10/23/17 06:03 O2 Sat by Pulse Oximetry (%) 98 10/22/17 21:00 Constitutional: Yes: Calm Cardiovascular: Yes: Pulse Irregular, S2 (mechanical S2- normal) Respiratory: Yes: CTA Bilaterally Gastrointestinal: Yes: Soft Edema: No Neurological: Yes: Alert, Oriented Labs: CBC, BMP 10/23/17 05:30 10/22/17 06:00 INR, PTT INR 1.63 (0.83-1.09) H 10/22/17 09:30 Laboratory Tests 10/22/17 10/22/17 10/23/17 06:00 09:30 05:30 WBC Hgb Plt Count INR 1.63 H PTT (Actin FS) 97.1 H Sodium 143 Potassium 4.2 Creatinine 0.8 10/23/17 10/23/17 05:30 05:30 WBC Pending Hgb Pending Plt Count Pending INR Pending PTT (Actin FS) Sodium Potassium Creatinine - ....Imaging EKG: Image Reviewed Assessment/Plan IMP: Chronic AF Mechanical MVR CAD s/p CABG Post op, breast surgery REC: 1. AF remains well controlled. 2. Hep----> coumadin with goal INR 3.0 3. INR pending. Coverage for [place]
[2017-10-23 09:58] LABS: INR 2.04 (0.83-1.09)
[2017-10-23 10:24] LABS: ALBUMIN 2.9 g/dl (3.4-5.0); ALK PHOS 144 U/L (45-117); ANION GAP 9 MMOL/L (8-16); BILIRUBIN,TOTAL 1.9 mg/dL (0.2-1.0); BLOOD UREA NITROGEN 11 mg/dL (7-18); CALCIUM 8.9 mg/dL (8.5-10.1); CHLORIDE 109 mmol/L (98-107); CO2 26 mmol/L (21-32); CREATININE 0.8 mg/dL (0.55-1.02); GLUCOSE,RANDOM 93 mg/dL (74-106); POTASSIUM 4.2 mmol/L (3.5-5.1); SGOT/AST 35 U/L (15-37); SGPT/ALT 54 U/L (12-78); SODIUM 144 mmol/L (136-145); TOT PROT 5.4 g/dl (6.4-8.2)
[2017-10-23 11:12] LABS: ANISOCYTOSIS 2+; MACROCYTOSIS 1+; PLATELET ESTIMATE NORMAL; TEAR DROP CELLS 1+
[2017-10-23 11:19] LABS: INR 2.03 (0.83-1.09); PROTHROMBIN TIME (PATIENT) 22.9 SEC (9.7-13.0)
--- NOTE | 2017-10-23 12:11 | PN ---
Physical Exam: SUBJECTIVE: Patient seen and examined at the bedside. sitting in chair. drains intact with sang. drainage. Feels well, wants to go home. 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 Assured her we will discharge her once her inr is more therapeutic for her mech. valve. and afib OBJECTIVE: inr 2.04 Vital Signs Period Temp Pulse Resp BP Sys/Bergeron Pulse Ox Last 24 Hr 97.8 F-98.6 F 79-87 18-20 107-141/59-79 98 GENERAL: The patient is awake, alert, and fully oriented, in no acute distress. HEAD: Normal with no signs of trauma. EYES: PERRL, extraocular movements intact, sclera anicteric, conjunctiva clear. No ptosis. ENT: Ears normal, nares patent, oropharynx clear without exudates, moist mucous membranes. NECK: Trachea midline, full range of motion, supple. 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 NEUROLOGICAL: Normal speech, gait not observed. PSYCH: Normal mood, normal affect. SKIN: shira drains to gravity, with sang draiange, minimal. shira to be removed by Dr. rendon outpatient. Laboratory Results - last 24 hr 10/22/17 10/22/17 10/23/17 06:00 06:00 05:30 WBC 4.9 5.2 Corrected WBC (auto) RBC 2.96 L 3.04 L Hgb 8.9 L 9.1 L Hct 26.7 L 27.4 L MCV 90.3 90.3 MCH 30.2 29.8 MCHC 33.4 33.0 RDW 15.8 H 16.0 H Plt Count 190 205 MPV 9.6 D 8.6 D Absolute Neuts (auto) 3.2 Neutrophils % 66.1 Neutrophils % (Manual) 75.2 Band Neutrophils % 0.0 Lymphocytes % 18.8 D Lymphocytes % (Manual) 12.9 Monocytes % 10.1 Monocytes % (Manual) 7 Eosinophils % 3.9 Eosinophils % (Manual) 5.0 H Basophils % 1.1 Basophils % (Manual) 0.0 Myelocytes % (Man) 0 Promyelocytes % (Man) 0 Blast Cells % (Manual) 0 Nucleated RBC % 0 0 Metamyelocytes 0 Hypochromia 0 Platelet Estimate Normal Platelet Comment Polychromasia 2+ Poikilocytosis 1+ Basophilic Stippling 1+ Anisocytosis 2+ Microcytosis 1+ Macrocytosis 1+ Tear Drop Cells 1+ PT with INR INR PTT (Actin FS) Sodium 143 Potassium 4.2 Chloride 108 H Carbon Dioxide 27 Anion Gap 8 BUN 10 Creatinine 0.8 Creat Clearance w eGFR > 60 Random Glucose 98 Calcium 8.8 Total Bilirubin 2.1 H AST 40 H ALT 52 Alkaline Phosphatase 153 H D Total Protein 5.3 L Albumin 2.8 L 10/23/17 10/23/17 10/23/17 05:30 05:30 05:30 WBC Cancelled Corrected WBC (auto) Cancelled RBC Cancelled Hgb Cancelled Hct Cancelled MCV Cancelled MCH Cancelled MCHC Cancelled RDW Cancelled Plt Count Cancelled MPV Cancelled Absolute Neuts (auto) Cancelled Neutrophils % Cancelled Neutrophils % (Manual) Band Neutrophils % Lymphocytes % Cancelled Lymphocytes % (Manual) Monocytes % Cancelled Monocytes % (Manual) Eosinophils % Cancelled Eosinophils % (Manual) Basophils % Cancelled Basophils % (Manual) Myelocytes % (Man) Promyelocytes % (Man) Blast Cells % (Manual) Nucleated RBC % Cancelled Metamyelocytes Hypochromia Platelet Estimate Cancelled Platelet Comment Cancelled Polychromasia Poikilocytosis Basophilic Stippling Anisocytosis Microcytosis Macrocytosis Tear Drop Cells PT with INR 23.00 H INR 2.04 H PTT (Actin FS) 97.1 H Sodium Potassium Chloride Carbon Dioxide Anion Gap BUN Creatinine Creat Clearance w eGFR Random Glucose Calcium Total Bilirubin AST ALT Alkaline Phosphatase Total Protein Albumin 10/23/17 10/23/17 05:30 10:58 WBC Corrected WBC (auto) RBC Hgb Hct MCV MCH MCHC RDW Plt Count MPV Absolute Neuts (auto) Neutrophils % Neutrophils % (Manual) Band Neutrophils % Lymphocytes % Lymphocytes % (Manual) Monocytes % Monocytes % (Manual) Eosinophils % Eosinophils % (Manual) Basophils % Basophils % (Manual) Myelocytes % (Man) Promyelocytes % (Man) Blast Cells % (Manual) Nucleated RBC % Metamyelocytes Hypochromia Platelet Estimate Platelet Comment Polychromasia Poikilocytosis Basophilic Stippling Anisocytosis Microcytosis Macrocytosis Tear Drop Cells PT with INR 22.90 H INR 2.03 H PTT (Actin FS) Sodium 144 Potassium 4.2 Chloride 109 H Carbon Dioxide 26 Anion Gap 9 BUN 11 Creatinine 0.8 Creat Clearance w eGFR > 60 Random Glucose 93 Calcium 8.9 Total Bilirubin 1.9 H AST 35 ALT 54 Alkaline Phosphatase 144 H Total Protein 5.4 L Albumin 2.9 L Active Medications Generic Name Dose Route Start Last Admin Trade Name Freq PRN Reason Stop Dose Admin Acetaminophen 325 mg 10/22/17 23:47 10/23/17 03:13 Tylenol - PO 325 mg Q6H PRN Administration PAIN LEVEL 4 - 6 Anastrozole 1 mg 10/20/17 10:00 10/23/17 09:44 Arimidex - PO Not Given DAILY [facility] Atorvastatin Calcium 20 mg 10/19/17 22:00 10/22/17 22:17 Lipitor - PO 20 mg HS [facility] Administration Digoxin 0.125 mg 10/20/17 10:00 10/23/17 09:43 Lanoxin - PO 0.125 mg DAILY [facility] Administration Docusate Sodium 100 mg 10/19/17 22:00 10/23/17 06:23 Colace - PO Not Given TID [facility] Fentanyl 50 mcg 10/19/17 19:26 Sublimaze Injection - IVPUSH [id number] PRN PAIN-PACU ORDER X 4 DOSES ONLY Heparin Sodium (Porcine) 1,275 unit 10/19/17 19:26 10/22/17 09:22 Heparin - IVPUSH 1,275 unit PRN PRN Administration Heparin Heparin Sodium (Porcine) 6,000 unit 10/19/17 19:26 Heparin - IVPUSH PRN PRN Heparin HEPARIN SOD,PORK IN 0.45% NACL 25,000 units in 500 mls @ 25.5 mls/hr 10/19/17 19:26 10/23/17 09:42 Heparin-1/2ns 25,000 Units/500 IVPB 1,300 units/hr TITR [facility] 26 mls/hr Titration Protocol 1,275 UNITS/HR Metoprolol Succinate 200 mg 10/20/17 10:00 10/23/17 09:43 Toprol Xl - PO 200 mg DAILY [facility] Administration Metoprolol Tartrate 5 mg 10/19/17 19:26 Lopressor Injection - IVPUSH Q4H PRN HYPERTENSION Ondansetron HCl 4 mg 10/19/17 19:26 Zofran Injection IVPUSH Q6H PRN NAUSEA AND/OR VOMITING Polyethylene Glycol 17 gm 10/20/17 10:00 10/23/17 09:44 Miralax (For Daily Use) - PO Not Given DAILY [facility] Promethazine HCl 12.5 mg 10/19/17 19:26 Phenergan Injection - IVPUSH Q6H PRN NAUSEA-FOR RESCUE AFTER 15 MIN Senna 2 tab 10/19/17 19:26 10/19/17 20:40 Senna - PO 2 tab HS PRN Administration CONSTIPATION Warfarin Sodium 5 mg 10/20/17 18:00 10/22/17 17:26 Coumadin - PO 5 mg DAILY@1800 [facility] Administration ASSESSMENT/PLAN: Patient is a 67 year old female with a significant past medical history of atrial fibrillation/mechanical MV (on Coumadin),CAD (s/p CABG), left breast CA with mastectomy and left mastectomy revision. Patient is s/p left breast hematoma evacuation on 10/16/17. Heme: Hematoma: s/p hematoma evacuation on 10/16/2017. hmg/hct stable. SHIRA to gravity with scant amt of sang drainage. shira drains to be removed by surgeon outpatient. Anemia: s/p prbc transfusions. cbc 9.27.4 Onc: Left breast cancer: On Arimidex. oncology follow up outpatient. Card: Atrial fibrillation/mechanical valve: On Metoprolol, lopressor prn. Heparin drip to coumadin bridge with goal inr between 2.5-3.5, inr today 2.0, will continue coumadin 5mg daily. HLD: on lipitor Chf: monitor intake,output. on digoxin. fen tolerating po monitor electrolytes low salt diet prophy heparin to coumadin bridge Visit type - Emergency Visit Emergency Visit: Yes ED Registration Date: 10/16/17 Care time: The patient presented to the Emergency Department on the above date and was hospitalized for further evaluation of their emergent condition. - New Patient This patient is new to me today: No - Critical Care Critical Care patient: No - Discharge Referral Referred to [facility] No
[2017-10-23] MEDS: WARFARIN NA 5 MG TABLET (UD) PO SCH (17:14)
[2017-10-23] MEDS: ATORVASTATIN CA 20 MG TABLET (FP) PO SCH (21:07)
[2017-10-23] MEDS: HEPARIN SOD,PORK IN 0.45% NACL 25,000 UNITS/500 ML INFUS.BAG IVPB SCH (21:09)
[2017-10-24] MEDS: DOCUSATE SODIUM 100 MG CAPSULE (FP) PO SCH ×3 (05:28→21:00)
[2017-10-24 07:06] LABS: INR 2.09 (0.83-1.09); PROTHROMBIN TIME (PATIENT) 23.6 SEC (9.7-13.0)
[2017-10-24 07:08] LABS: BASO % 1.3 % (0-2.0); EOS % 4.2 % (0-4.5); HEMATOCRIT 30.1 % (32.4-45.2); HEMOGLOBIN 10.1 GM/dL (10.7-15.3); LYMPH % 15.7 % (8-40); MCH 30.1 pg (25.7-33.7); MCHC 33.5 g/dl (32.0-36.0); MEAN CELL VOLUME 89.8 fl (80-96); MEAN PLT VOLUME 8.8 fl (7.5-11.1); MONO % 7.3 % (3.8-10.2); NEUT % 71.5 % (42.8-82.8); PLATELET COUNT 235 K/MM3 (134-434); RBC 3.35 M/mm3 (3.60-5.2); RDW 16.5 % (11.6-15.6); WHITE BLOOD COUNT 4.9 K/mm3 (4.0-10.0)
[2017-10-24 07:16] LABS: CHLORIDE 108 mmol/L (98-107); POTASSIUM 3.8 mmol/L (3.5-5.1); SODIUM 146 mmol/L (136-145)
[2017-10-24 07:25] LABS: ALBUMIN 3.2 g/dl (3.4-5.0); ALK PHOS 141 U/L (45-117); ANION GAP 10 MMOL/L (8-16); BILIRUBIN,TOTAL 1.8 mg/dL (0.2-1.0); BLOOD UREA NITROGEN 14 mg/dL (7-18); CO2 28 mmol/L (21-32); CREATININE 0.9 mg/dL (0.55-1.02); GLUCOSE,RANDOM 102 mg/dL (74-106); MAGNESIUM 2.2 mg/dL (1.8-2.4); SGOT/AST 40 U/L (15-37); SGPT/ALT 58 U/L (12-78); TOT PROT 5.8 g/dl (6.4-8.2)
[2017-10-24] MEDS ORDERED: ACETAMINOPHEN 325 MG TABLET (FP) PO PRN (08:44)
--- NOTE | 2017-10-24 09:05 | PN ---
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 Patient is S/P Left breast capsulectomy with removal of implant and hematoma, Dr. Engle/Dr. Cano, 10/11/2017. Patient was discharged yesterday on Lovenox (Coumadin not restarted). Today, she noted an increase in pain over the operative site and left arm numbness starting at approximately 3 PM. GLORIA drainage has been unchanged at 30 mL emptied every 3 hours and drainage appearance has been consistent. Her most recent oxycodone was taken at 10 PM; patient states that this "did nothing "to help her pain. She denies shortness of breath. - Current Medication List Current Medications: Active Medications Acetaminophen (Tylenol -) 650 mg PO Q6H PRN PRN Reason: PAIN LEVEL 4 - 6 Anastrozole (Arimidex -) 1 mg PO DAILY [facility] Last Admin: 10/23/17 12:28 Dose: 1 mg Atorvastatin Calcium (Lipitor -) 20 mg PO HS [facility] Last Admin: 10/23/17 21:07 Dose: 20 mg Digoxin (Lanoxin -) 0.125 mg PO DAILY [facility] Last Admin: 10/23/17 09:43 Dose: 0.125 mg Docusate Sodium (Colace -) 100 mg PO TID [facility] Last Admin: 10/24/17 05:28 Dose: Not Given Fentanyl (Sublimaze Injection -) 50 mcg IVPUSH [id number] PRN PRN Reason: PAIN-PACU ORDER X 4 DOSES ONLY Heparin Sodium (Porcine) (Heparin -) 1,275 unit IVPUSH PRN PRN PRN Reason: Heparin Last Admin: 10/22/17 09:22 Dose: 1,275 unit Heparin Sodium (Porcine) (Heparin -) 6,000 unit IVPUSH PRN PRN PRN Reason: Heparin HEPARIN SOD,PORK IN 0.45% NACL (Heparin-1/2ns 25,000 Units/500) 25,000 units in 500 mls @ 25.5 mls/hr IVPB TITR [facility]; Protocol Last Admin: 10/23/17 21:09 Dose: 1,300 units/hr, 26 mls/hr Metoprolol Succinate (Toprol Xl -) 200 mg PO DAILY [facility] Last Admin: 10/23/17 09:43 Dose: 200 mg Metoprolol Tartrate (Lopressor Injection -) 5 mg IVPUSH Q4H PRN PRN Reason: HYPERTENSION Ondansetron HCl (Zofran Injection) 4 mg IVPUSH Q6H PRN PRN Reason: NAUSEA AND/OR VOMITING Polyethylene Glycol (Miralax (For Daily Use) -) 17 gm PO DAILY [facility] Last Admin: 10/23/17 09:44 Dose: Not Given Promethazine HCl (Phenergan Injection -) 12.5 mg IVPUSH Q6H PRN PRN Reason: NAUSEA-FOR RESCUE AFTER 15 MIN Senna (Senna -) 2 tab PO HS PRN PRN Reason: CONSTIPATION Last Admin: 10/19/17 20:40 Dose: 2 tab Warfarin Sodium (Coumadin -) 5 mg PO DAILY@1800 [facility] Last Admin: 10/23/17 17:14 Dose: 5 mg - Objective Vital Signs: Vital Signs Temperature 98.4 F 10/24/17 06:03 Pulse Rate 81 10/24/17 06:03 Respiratory Rate 20 10/24/17 08:06 Blood Pressure 110/59 10/24/17 06:03 O2 Sat by Pulse Oximetry (%) 95 10/24/17 08:06 Eyes: Yes: WNL, Conjunctiva Clear, EOM Intact HENT: Yes: WNL, Atraumatic, Normocephalic Neck: Yes: WNL, Supple, Trachea Midline Cardiovascular: Yes: Pulse Irregular, Murmur, S1, S2 Respiratory: Yes: WNL, Regular, CTA Bilaterally Gastrointestinal: Yes: WNL, Normal Bowel Sounds Genitourinary: Yes: WNL Musculoskeletal: Yes: WNL Extremities: Yes: WNL Edema: No Integumentary: Yes: WNL Neurological: Yes: WNL, Alert, Oriented ...Motor Strength: WNL Psychiatric: Yes: WNL Labs: CBC, BMP 10/24/17 05:30 10/24/17 05:30 INR, PTT INR 2.09 (0.83-1.09) H 10/24/17 05:30 Assessment/Plan IMP: Chronic AF Mechanical MVR CAD s/p CABG Post op, breast surgery REC: 1. AF remains well controlled. 2. Hep----> coumadin with goal INR 3.0 3. INR pending.
[2017-10-24] MEDS ORDERED: PT OWN MED DRAWER 7, Y5N ONE (10:38)
[2017-10-24] MEDS: DIGOXIN 0.125 MG TABLET (FP) PO SCH (10:40)
[2017-10-24] MEDS: ANASTROZOLE 1 MG TABLET PO SCH (10:40)
[2017-10-24] MEDS: POLYETHYLENE GLYCOL 3350 119 GM BTL PO SCH (10:51)
--- NOTE | 2017-10-24 15:31 | PN ---
Physical Exam: SUBJECTIVE: Patient seen and examined at the bedside. Anxious to go home, in no distress. Denies chest pain or shortness of breath. OBJECTIVE: patient can be discharged once her inr is therapeutic for her mechanical valve, goal inr 3.0 shira drains to be removed by surgeon as an outpatient, can be discharged with drains. Vital Signs Period Temp Pulse Resp BP Sys/Bergeron Pulse Ox Last 24 Hr 97.7 F-99.0 F 74-97 18-20 106-142/59-77 95-95 GENERAL: The patient is awake, alert, and fully oriented, in no acute distress. HEAD: Normal with no signs of trauma. EYES: PERRL, extraocular movements intact, sclera anicteric, conjunctiva clear. No ptosis. ENT: Ears normal, nares patent, oropharynx clear without exudates, moist mucous membranes. NECK: Trachea midline, full range of motion, supple. 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 NEUROLOGICAL: Normal speech, gait not observed. PSYCH: Normal mood, normal affect. SKIN: shira drains to gravity, with sang draiange, minimal. shira to be removed by Dr. rendon outpatient. Laboratory Results - last 24 hr 10/23/17 10/24/17 10/24/17 08:45 05:30 05:30 WBC 4.9 RBC 3.35 L Hgb 10.1 L Hct 30.1 L MCV 89.8 MCH 30.1 MCHC 33.5 RDW 16.5 H Plt Count 235 MPV 8.8 Absolute Neuts (auto) 3.5 Neutrophils % 71.5 Lymphocytes % 15.7 Monocytes % 7.3 Eosinophils % 4.2 Basophils % 1.3 Nucleated RBC % 0 PT with INR INR PTT (Actin FS) 70.5 H Sodium Potassium Chloride Carbon Dioxide Anion Gap BUN Creatinine Creat Clearance w eGFR Random Glucose Calcium Magnesium Total Bilirubin AST ALT Alkaline Phosphatase Total Protein Albumin Stool Occult Blood Negative 10/24/17 10/24/17 05:30 05:30 WBC RBC Hgb Hct MCV MCH MCHC RDW Plt Count MPV Absolute Neuts (auto) Neutrophils % Lymphocytes % Monocytes % Eosinophils % Basophils % Nucleated RBC % PT with INR 23.60 H INR 2.09 H PTT (Actin FS) Sodium 146 H Potassium 3.8 Chloride 108 H Carbon Dioxide 28 Anion Gap 10 BUN 14 Creatinine 0.9 Creat Clearance w eGFR > 60 Random Glucose 102 Calcium 9.0 Magnesium 2.2 Total Bilirubin 1.8 H AST 40 H ALT 58 Alkaline Phosphatase 141 H Total Protein 5.8 L Albumin 3.2 L Stool Occult Blood Active Medications Generic Name Dose Route Start Last Admin Trade Name Freq PRN Reason Stop Dose Admin Acetaminophen 650 mg 10/24/17 08:44 Tylenol - PO Q6H PRN PAIN LEVEL 4 - 6 Anastrozole 1 mg 10/20/17 10:00 10/24/17 10:40 Arimidex - PO 1 mg DAILY [facility] Administration Atorvastatin Calcium 20 mg 10/19/17 22:00 10/23/17 21:07 Lipitor - PO 20 mg HS [facility] Administration Digoxin 0.125 mg 10/20/17 10:00 10/24/17 10:40 Lanoxin - PO 0.125 mg DAILY [facility] Administration Docusate Sodium 100 mg 10/19/17 22:00 10/24/17 14:24 Colace - PO Not Given TID [facility] Fentanyl 50 mcg 10/19/17 19:26 Sublimaze Injection - IVPUSH [id number] PRN PAIN-PACU ORDER X 4 DOSES ONLY Heparin Sodium (Porcine) 1,275 unit 10/19/17 19:26 10/22/17 09:22 Heparin - IVPUSH 1,275 unit PRN PRN Administration Heparin Heparin Sodium (Porcine) 6,000 unit 10/19/17 19:26 Heparin - IVPUSH PRN PRN Heparin HEPARIN SOD,PORK IN 0.45% NACL 25,000 units in 500 mls @ 25.5 mls/hr 10/19/17 19:26 10/23/17 21:09 Heparin-1/2ns 25,000 Units/500 IVPB 1,300 units/hr TITR LAMAR 26 mls/hr Administration Protocol 1,275 UNITS/HR Metoprolol Succinate 200 mg 10/20/17 10:00 10/24/17 10:39 Toprol Xl - PO 200 mg DAILY [facility] Administration Metoprolol Tartrate 5 mg 10/19/17 19:26 Lopressor Injection - IVPUSH Q4H PRN HYPERTENSION Ondansetron HCl 4 mg 10/19/17 19:26 Zofran Injection IVPUSH Q6H PRN NAUSEA AND/OR VOMITING Polyethylene Glycol 17 gm 10/20/17 10:00 10/24/17 10:51 Miralax (For Daily Use) - PO Not Given DAILY [facility] Promethazine HCl 12.5 mg 10/19/17 19:26 Phenergan Injection - IVPUSH Q6H PRN NAUSEA-FOR RESCUE AFTER 15 MIN Senna 2 tab 10/19/17 19:26 10/19/17 20:40 Senna - PO 2 tab HS PRN Administration CONSTIPATION Warfarin Sodium 5 mg 10/20/17 18:00 10/23/17 17:14 Coumadin - PO 5 mg DAILY@1800 [facility] Administration ASSESSMENT/PLAN: Patient is a 67 year old female with a significant past medical history of atrial fibrillation/mechanical MV (on Coumadin), CAD (s/p CABG), left breast CA with mastectomy and left mastectomy revision. Patient is s/p left breast capsulectomy with removal of implant and hematoma on 10/11/17. Patient was discharged on 10/13/17 on full dose Lovenox. On 10/14 patient had increased pain and left arm numbness and came to the ED and was noted to have increased sanguinous fluid in her shira drain. Patient is s/p left breast hematoma evacuation on 10/16/17. Heme: Hematoma: s/p hematoma evacuation on 10/16/2017. Hmg/hct remains stable. minimal amount of sang. drainage on SHIRA. SHIRA drains to be removed by Dr Rendon tomorrow as an outpatient. Onc: Left breast cancer: On Arimidex. oncology follow up outpatient. Card: Atrial fibrillation/mechanical valve: On Metoprolol 200mg daily. Heparin drip to coumadin bridge with goal inr between 2.5-3.5, inr today 2.0, will continue coumadin 5mg daily and monitor. High risk for re-bleeding, and inr is responding to current regimen, will continue coumadin at current dose. HLD: on lipitor Chf: monitor intake,output. on digoxin. fen tolerating po monitor electrolytes low salt diet prophy heparin to coumadin bridge Visit type - Emergency Visit Emergency Visit: Yes ED Registration Date: 10/16/17 Care time: The patient presented to the Emergency Department on the above date and was hospitalized for further evaluation of their emergent condition. - New Patient This patient is new to me today: No - Critical Care Critical Care patient: No - Discharge Referral Referred to [facility] No
[2017-10-24] MEDS: WARFARIN NA 5 MG TABLET (UD) PO SCH (17:16)
[2017-10-24] MEDS: HEPARIN SOD,PORK IN 0.45% NACL 25,000 UNITS/500 ML INFUS.BAG IVPB SCH ×3 (17:16→20:09)
[2017-10-24] MEDS ORDERED: MELATONIN 5 MG TABLETS PO PRN (20:06)
[2017-10-24] MEDS: ATORVASTATIN CA 20 MG TABLET (FP) PO SCH (20:59)
[2017-10-25] MEDS ORDERED: PT OWN MED DRAWER 7, Y5N ONE ×2 (05:31→10:19)
[2017-10-25] MEDS: DOCUSATE SODIUM 100 MG CAPSULE (FP) PO SCH (05:34)
[2017-10-25 05:59] VITALS: TEMP 97.9
[2017-10-25 07:00] LABS: HEMATOCRIT 30.6 % (32.4-45.2); MCH 29.6 pg (25.7-33.7); MCHC 32.6 g/dl (32.0-36.0); MEAN PLT VOLUME 8.5 fl (7.5-11.1); PLATELET COUNT 213 K/MM3 (134-434); RBC 3.37 M/mm3 (3.60-5.2); RDW 16.3 % (11.6-15.6); WHITE BLOOD COUNT 4.3 K/mm3 (4.0-10.0)
[2017-10-25 07:42] LABS: ALBUMIN 3.1 g/dl (3.4-5.0); ANION GAP 9 MMOL/L (8-16); BLOOD UREA NITROGEN 14 mg/dL (7-18); CALCIUM 9.1 mg/dL (8.5-10.1); CHLORIDE 110 mmol/L (98-107); CO2 26 mmol/L (21-32); CREATININE 0.9 mg/dL (0.55-1.02); GLUCOSE,RANDOM 97 mg/dL (74-106); POTASSIUM 3.9 mmol/L (3.5-5.1); SGOT/AST 29 U/L (15-37); SGPT/ALT 51 U/L (12-78); SODIUM 145 mmol/L (136-145)
[2017-10-25 07:44] LABS: ALK PHOS 121 U/L (45-117); BILIRUBIN,TOTAL 1.4 mg/dL (0.2-1.0); TOT PROT 5.5 g/dl (6.4-8.2)
[2017-10-25 08:17] VITALS: BP 111/58
[2017-10-25 08:28] LABS: INR 2.37 (0.83-1.09); PROTHROMBIN TIME (PATIENT) 26.8 SEC (9.7-13.0)
[2017-10-25 10:20] VITALS: PULSE 83
[2017-10-25] MEDS: POLYETHYLENE GLYCOL 3350 119 GM BTL PO SCH (10:20)
[2017-10-25] MEDS: ANASTROZOLE 1 MG TABLET PO SCH (10:20)
[2017-10-25] MEDS: DIGOXIN 0.125 MG TABLET (FP) PO SCH (10:20)
--- NOTE | 2017-10-25 11:57 | DS ---
Physical Exam: SUBJECTIVE: Patient seen and examined OBJECTIVE: Vital Signs Period Temp Pulse Resp BP Sys/Bergeron Pulse Ox Last 24 Hr 97.9 F-98.8 F 74-83 16-20 107-125/54-71 100 PHYSICAL EXAM GENERAL: The patient is awake, alert, and fully oriented, in no acute distress. HEAD: Normal with no signs of trauma. EYES: PERRL, extraocular movements intact, sclera anicteric, conjunctiva clear. ENT: Ears normal, nares patent, oropharynx clear without exudates, moist mucous membranes. NECK: Trachea midline, full range of motion, supple. LUNGS: Breath sounds equal, clear to auscultation bilaterally, no wheezes, no crackles, no accessory muscle use. HEART: Regular rate and rhythm, S1, S2 without murmur, rub or gallop. ABDOMEN: Soft, nontender, nondistended, normoactive bowel sounds, no guarding, no rebound, no hepatosplenomegaly, no masses. EXTREMITIES: 2+ pulses, warm, well-perfused, no edema. NEUROLOGICAL: Cranial nerves II through XII grossly intact. Normal speech, gait not observed. PSYCH: Normal mood, normal affect. SKIN: Warm, dry, normal turgor, no rashes or lesions noted. LABS Laboratory Results - last 24 hr 10/25/17 10/25/17 10/25/17 05:30 05:30 05:30 WBC 4.3 RBC 3.37 L Hgb 10.0 L Hct 30.6 L MCV 91.0 MCH 29.6 MCHC 32.6 RDW 16.3 H Plt Count 213 MPV 8.5 PT with INR INR PTT (Actin FS) 96.3 H Sodium 145 Potassium 3.9 Chloride 110 H Carbon Dioxide 26 Anion Gap 9 BUN 14 Creatinine 0.9 Creat Clearance w eGFR > 60 Random Glucose 97 Calcium 9.1 Total Bilirubin 1.4 H AST 29 ALT 51 Alkaline Phosphatase 121 H D Total Protein 5.5 L Albumin 3.1 L 10/25/17 06:00 WBC RBC Hgb Hct MCV MCH MCHC RDW Plt Count MPV PT with INR 26.80 H INR 2.37 H PTT (Actin FS) Sodium Potassium Chloride Carbon Dioxide Anion Gap BUN Creatinine Creat Clearance w eGFR Random Glucose Calcium Total Bilirubin AST ALT Alkaline Phosphatase Total Protein Albumin HOSPITAL COURSE: Date of Admission:10/16/17 Date of Discharge: 10/25/[address] Cano's office to remove GLORIA drains (~20 dark sanguinous fluid in both over 48 hours) Incision: ebenezer, edges well-approx Discharge Summary Reason For Visit: POST OP BREAST SURGERY/PAIN, NUMBNESS TO LEFT ARM Current Active Problems Atrial fibrillation (Acute) H/O mitral valve replacement with mechanical valve (Acute) Postoperative hematoma of subcutaneous tissue (Acute) Condition: Improved - Instructions Diet, Activity, Other Instructions: Take warfarin 5mg tonight. Check your INR in the morning. Then check with your cardiology [employer] Janki Alexander regarding continued dosing. You should go directly from [facility] to Dr. Cano's office today to have your GLORIA drains removed. Of course return to the ED for any new or worsening problems. Referrals: Carlos A Cano MD [Primary Care Provider] - Disposition: HOME - Home Medications Comprehensive Discharge Medication List: Ambulatory Orders Digoxin [Lanoxin -] 0.125 mg PO DAILY 10/29/14 Simvastatin 40 mg PO HS 10/29/14 Anastrozole [Arimidex] 1 mg PO DAILY 10/07/17 Metoprolol Succinate 200 mg PO DAILY 10/07/17 Oxycodone HCl/Acetaminophen [Percocet 5-325 mg Tablet] 1 combo PO Q4H PRN #42 tablet MDD 6 10/14/17 - Discharge Referral Referred to [facility] No
== END 2017-10-25 13:08 | disposition home or self-care (01) | DRG 908 ==
LOC: FER 00:56 → FM/S 02:32 → JICU 10:10 → OBSVTOIN 11:30 → J4W 10-19 17:55
PROVIDERS: ADMIT Internal Medicine; ATTEND Nurse Practitioner Acute Care
PROC: 0HJU0ZZ Inspection of Left Breast, Open Approach (ICD-10-PCS; 2017-10-16)
PROC: 0W380ZZ Control Bleeding in Chest Wall, Open Approach (ICD-10-PCS; principal; 2017-10-16 11:00)
DX: L76.32 Postprocedural hematoma of skin and subcutaneous tissue following other procedure (principal); D62 Acute posthemorrhagic anemia; I24.8 Other forms of acute ischemic heart disease; Y83.8 Other surgical procedures as the cause of abnormal reaction of the patient, or of later complication, without mention of misadventure at the time of the procedure; I48.91 Unspecified atrial fibrillation; Z79.01 Long term (current) use of anticoagulants; I25.10 Atherosclerotic heart disease of native coronary artery without angina pectoris; Z95.1 Presence of aortocoronary bypass graft; Z85.3 Personal history of malignant neoplasm of breast; Z95.2 Presence of prosthetic heart valve; Z87.891 Personal history of nicotine dependence; R11.2 Nausea with vomiting, unspecified; Z88.0 Allergy status to penicillin; E80.6 Other disorders of bilirubin metabolism; E86.1 Hypovolemia; K59.00 Constipation, unspecified; I50.9 Heart failure, unspecified; I48.2 Chronic atrial fibrillation
CPT/HCPCS: 36415; 71045-TC-FY; 80048; 80053; 80061; 80076; 80162; 82272; 82550; 83721; 83735; 84100; 84484; 85025; 85027; 85610; 85730; 86850; 86900; 86901; 86922; 90670; 93005; 93970-TC; 97116-GP; 97162-GP; 99282-25; G0378; J1644; P9038; P9058